=== PATIENT | female | born 1995 | race African-American/Black ===

== ENCOUNTER 2017-04-19 02:25 | Emergency (ER) | payer SELFPAY ==
[2017-04-19 02:29] VITALS: BP 123/70; PULSE 87; RESP 16; TEMP 37; O2SAT 97; BMI 21.4
[2017-04-19 02:45] LABS: Urine Pregnancy, HCG Qual. Negative (Negative)
--- NOTE | 2017-04-19 03:21 | HMH.EDHA ---
ED Disposition Clinical Impression: Headache Qualifiers: Headache type: unspecified Headache chronicity pattern: acute headache Intractability: not intractable Qualified Code(s): R51 - Headache Disposition: Home, Self-Care Condition on Discharge: Good Instructions: DI for Headache Additional Instructions: see pcp for follow up Referrals: Audrey Tinoco PA [Primary Care Provider] - - Critical Care Critical Care Time: No Attestation: On 04/19/17, the high probability of a clinically significant, sudden or life threatening deterioration of the following system(s) required my full and direct attention, intervention and personal management. The time I documented below is in addition to time spent performing reported procedures but includes the following listed in this critical care notation. Medical Decision Making - Medical Records Medical records reviewed: Yes: I reviewed the patient's medical records. Vital Signs: 04/19/17 02:29 Temperature 98.6 F Temperature Source Oral Pulse Rate [Right Brachial] 87 Respiratory Rate 16 Blood Pressure [Right Arm] 123/70 Blood Pressure Mean [Right Arm] 87 Blood Pressure Source [Right Arm] Automatic Cuff Blood Pressure Position [Right Arm] Sitting 02 Sat by Pulse Oximetry 97 - Lab Data Lab results reviewed: Yes: I reviewed the patient's lab results. Lab Results 04/19/17 02:40: Urine HCG, Qual Negative Orders (Tests/Meds): ED MEDICATIONS Generic Name Dose Route Start Last Admin Trade Name Freq PRN Reason Stop Dose Admin Sodium Chloride 1,000 mls @ 999 mls/hr 04/19/17 03:00 04/19/17 02:59 Sod Chlor 0.9% 1000ml Bag IV 04/19/17 04:00 999 mls/hr .Q1H1M JOSE DAVID Administration Discontinued Medications Generic Name Dose Route Start Last Admin Trade Name Freq PRN Reason Stop Dose Admin Ketorolac Tromethamine 30 mg 04/19/17 02:53 04/19/17 02:58 Toradol 30mg/Ml Vial IV 04/19/17 02:54 30 mg ONCE ONE Administration Ondansetron HCl 4 mg 04/19/17 02:53 04/19/17 02:59 Zofran 4mg/2ml Vial IV 04/19/17 02:54 4 mg ONCE ONE Administration - Isidro Inquiry Pt receiving controlled substance: No Headache HPI - General Chief Complaint: Headache Stated Complaint: Headache and vomiting Time Seen by Provider: 04/19/17 03:21 Mode of Arrival: Ambulatory Source of Information: Patient, Relative, Medical Record Limitations: No Limitations Description of Symptoms (Recalled from ER Triage Doc. by RN): HEADACHE WITH VOMITING - History of Present Illness HPI Narrative: pt with acute segundo MD Complaint: headache Onset (ago): hour(s) Onset description: gradual Location: frontal Severity: similar to previous episodes Relieving factors: nothing, other Context: occurred at rest - Related Data Previous Rx's Medication Instructions Recorded medroxyprogesterone 150 mg/mL 150 mg IM [id number] #1 ml 04/10/17 intramuscular suspension Allergies Allergy/AdvReac Type Severity Reaction Status Date / Time No Known Allergies Allergy Verified 04/19/17 02:32 [facility] History I have reviewed the patient's past medical history: Yes - Social History Smoking Status: Current every day smoker Tobacco Type: cigarettes Alcohol Intake: never - Psychiatric History Expresses thoughts of harming self/others: None Suicide Plan Description: No Plan ROS Obtained: Yes All systems reviewed & no additional complaints - Constitutional Constitutional: Denies fever(s) - Eyes Eyes: Denies change in vision - ENT Ears, Nose, Mouth, and Throat: Denies sore throat - Cardiovascular Cardiovascular: Denies diaphoresis - Musculoskeletal Musculoskeletal: Denies joint pain - Integumentary/Breasts Skin/Breast: Denies rash Physical Exam - General General appearance: alert - Head Head exam: normocephalic - Eye Eye exam: Present: PERRL, EOMI - ENT ENT exam: Present: mucous membranes moist - Neck Neck exam: Prese
--- NOTE | 2017-04-19 03:25 | ED_ITS ---
ED Disposition Clinical Impression: Headache Qualifiers: Headache type: unspecified Headache chronicity pattern: acute headache Intractability: not intractable Qualified Code(s): R51 - Headache Disposition: Home, Self-Care Condition on Discharge: Good Instructions: DI for Headache Additional Instructions: see pcp for follow up Referrals: Audrey Tinoco PA [Primary Care Provider] - - Critical Care Critical Care Time: No Attestation: On 04/19/17, the high probability of a clinically significant, sudden or life threatening deterioration of the following system(s) required my full and direct attention, intervention and personal management. The time I documented below is in addition to time spent performing reported procedures but includes the following listed in this critical care notation. Medical Decision Making - Medical Records Medical records reviewed: Yes: I reviewed the patient's medical records. Vital Signs: 04/19/17 02:29 Temperature 98.6 F Temperature Source Oral Pulse Rate [Right Brachial] 87 Respiratory Rate 16 Blood Pressure [Right Arm] 123/70 Blood Pressure Mean [Right Arm] 87 Blood Pressure Source [Right Arm] Automatic Cuff Blood Pressure Position [Right Arm] Sitting 02 Sat by Pulse Oximetry 97 - Lab Data Lab results reviewed: Yes: I reviewed the patient's lab results. Lab Results 04/19/17 02:40: Urine HCG, Qual Negative Orders (Tests/Meds): ED MEDICATIONS Generic Name Dose Route Start Last Admin Trade Name Freq PRN Reason Stop Dose Admin Sodium Chloride 1,000 mls @ 999 mls/hr 04/19/17 03:00 04/19/17 02:59 Sod Chlor 0.9% 1000ml Bag IV 04/19/17 04:00 999 mls/hr .Q1H1M JOSE DAVID Administration Discontinued Medications Generic Name Dose Route Start Last Admin Trade Name Freq PRN Reason Stop Dose Admin Ketorolac Tromethamine 30 mg 04/19/17 02:53 04/19/17 02:58 Toradol 30mg/Ml Vial IV 04/19/17 02:54 30 mg ONCE ONE Administration Ondansetron HCl 4 mg 04/19/17 02:53 04/19/17 02:59 Zofran 4mg/2ml Vial IV 04/19/17 02:54 4 mg ONCE ONE Administration - Isidro Inquiry Pt receiving controlled substance: No Headache HPI - General Chief Complaint: Headache Stated Complaint: Headache and vomiting Time Seen by Provider: 04/19/17 03:21 Mode of Arrival: Ambulatory Source of Information: Patient, Relative, Medical Record Limitations: No Limitations Description of Symptoms (Recalled from ER Triage Doc. by RN): HEADACHE WITH VOMITING - History of Present Illness HPI Narrative: pt with acute segundo MD Complaint: headache Onset (ago): hour(s) Onset description: gradual Location: frontal Severity: similar to previous episodes Relieving factors: nothing, other Context: occurred at rest - Related Data Previous Rx's Medication Instructions Recorded medroxyprogesterone 150 mg/mL 150 mg IM [id number] #1 ml 04/10/17 intramuscular suspension Allergies Allergy/AdvReac Type Severity Reaction Status Date / Time No Known Allergies Allergy Verified 04/19/17 02:32 [facility] History I have reviewed the patient's past medical history: Yes - Social History Smoking Status: Current every
[2017-04-19 03:36] VITALS: BP 123/70; PULSE 87; RESP 16; TEMP 37; O2SAT 97
== END 2017-04-19 03:37 | disposition home or self-care (01) ==
PROVIDERS: Emergency Provider Emergency Medicine; Family Provider Physician Assistant; PCP Physician Assistant
DX: R51 Headache (principal); F17.210 Nicotine dependence, cigarettes, uncomplicated
CPT/HCPCS: 81025; 96365; 96374; 96375; 99282; J2405

== ENCOUNTER → 2017-06-06 17:10 | Outpatient (REF) | payer MEDICAID, SELFPAY ==
[2017-06-09 19:01] LABS: Neisseria gonorrhoeae, NAA Negative (Negative)
== END ==
LOC: LAB 17:10
PROVIDERS: Visit Provider Nurse Practitioner Obstetrics & Gynecology
DX: Z72.51 High risk heterosexual behavior (principal)
CPT/HCPCS: 87491; 87591

== ENCOUNTER 2018-07-28 05:47 | Emergency (ER) | payer SELFPAY ==
[2018-07-28 05:54] VITALS: BP 103/65; PULSE 64; RESP 16; TEMP 36.5; O2SAT 96; BMI 22.2
[2018-07-28 06:19] LABS: Strep Scrn Group A (Rapid) Negative (Negative)
--- NOTE | 2018-07-28 06:25 | XR_ITS ---
XR chest 2V HISTORY: ITS.REASON: cough ORDERING PHYSICIAN: Ronnie Aj MD PATIENT AGE: 22 years COMPARISON: 05/25/2018 FINDINGS: The cardiomediastinal silhouette and pulmonary vascularity are within normal limits. The lungs are clear without infiltrates, suspicious nodules, or pleural effusions. No acute bony abnormalities. IMPRESSION: Negative chest, no acute finding
--- NOTE | 2018-07-28 06:34 | HMH.EDGENADL ---
ED Disposition Clinical Impression: Cough, URI (upper respiratory infection) Disposition: Home, Self-Care Condition on Discharge: Good Instructions: Cough Prescriptions: Albuterol Sulfate [Albuterol HFA Inhaler] 2 puffs IH Q6HP PRN #1 inh PRN Reason: Shortness Of Breath Or Wheezing Amoxicillin [Amoxicillin 875MG Tab] 875 mg PO Q12H #14 tab predniSONE [Prednisone 20mg Tab] 40 mg PO DAILY 5 Days #10 tab Referrals: Audrey Tinoco PA [Primary Care Provider] - Time of Disposition: 07:09 - Critical Care Critical Care Time: No Attestation: On 07/28/18, the high probability of a clinically significant, sudden or life threatening deterioration of the following system(s) required my full and direct attention, intervention and personal management. The time I documented below is in addition to time spent performing reported procedures but includes the following listed in this critical care notation. Medical Decision Making - Medical Records Medical records reviewed: Yes: I reviewed the patient's medical records. - Isidro Inquiry Pt receiving controlled substance: No Isidro was queried for this patient: No Vital Signs: 07/28/18 05:54 07/28/18 06:59 Temperature 97.7 F Temperature Source Oral Pulse Rate [Right] 64 64 Respiratory Rate 16 16 Blood Pressure [Right Arm] 103/65 L 114/58 L Blood Pressure Mean [Right Arm] 77 76 Blood Pressure Source [Right Arm] Automatic Cuff Blood Pressure Position [Right Arm] Sitting 02 Sat by Pulse Oximetry 96 98 Oxygen Delivery Method Room Air Room Air - Lab Data Lab results reviewed: Yes: I reviewed the patient's lab results. Lab Results 07/28/18 05:54: Influenza Type A Ag Negative, Influenza Type B Ag Negative 07/28/18 05:54: Group A Strep Rapid Negative 07/28/18 06:30: Urine HCG, Qual Negative Orders (Tests/Meds): ED MEDICATIONS Generic Name Dose Route Start Last Admin Trade Name Freq PRN Reason Stop Dose Admin Albuterol/Ipratropium 3 ml 07/28/18 06:30 Duoneb 3ml Neb IH 08/27/18 06:29 Q1H JOSE DAVID Benzonatate 200 mg 07/28/18 06:30 Tessalon Perles 100mg Capsule PO 08/27/18 06:29 ONCE JOSE DAVID Discontinued Medications Generic Name Dose Route Start Last Admin Trade Name Malcolm PRN Reason Stop Dose Admin Dexamethasone Sodium Phosphate 10 mg 07/28/18 06:26 07/28/18 06:47 Decadron 4mg/Ml 1ml Vial IM 07/28/18 06:27 10 mg ONCE ONE Administration ORDERS Category Date Time Status CXR 2 view (NOT portable) [XR chest 2V] Stat Exams 07/28/18 06:25 Taken Strep Screen Confirmation Stat Micro 07/28/18 05:54 Received General Adult HPI - General Chief complaint: PAIN Stated complaint: Sore Throat and cough Time Seen by Provider: 07/28/18 06:10 Mode of Arrival: Ambulatory Source of Information: Patient Limitations: No Limitations Description of Symptoms (Recalled from ER Triage Doc. by RN): Pt states her throat has been sore for 4 days - History of Present Illness HPI narrative: sore throat and relentless cough she describes. - Related Data Previous Rx's Medication Instructions Recorded Albuterol Sulfate [Albuterol HFA 2 puffs IH Q6HP PRN #1 inh 07/28/18 Inhaler] Amoxicillin [Amoxicillin 875MG 875 mg PO Q12H #14 tab 07/28/18 Tab] predniSONE [Prednisone 20mg 40 mg PO DAILY 5 Days #10 tab 07/28/18 Tab] Allergies Allergy/AdvReac Type Severity Reaction Status Date / Time No Known Allergies Allergy Verified 05/25/18 20:36 [facility] History - Hepatitis A Screen Drug use history?: No High risk sexual behaviors?: No History of sexually transmitted infection?: No Currently employed?: No Childcare worker?: No Do you have indoor plumbing?: Yes Do you have electricity?: Yes Attestation statement:: This patient has been screened for Hepatitis A risk factors. I have reviewed the patient's past medical history: Yes Medical History: Denies:: Diabetes Mellitus Type 1, Diabe
--- NOTE | 2018-07-28 06:37 | ED_ITS ---
ED Disposition Clinical Impression: Cough, URI (upper respiratory infection) Disposition: Home, Self-Care Condition on Discharge: Good Instructions: Cough Prescriptions: Albuterol Sulfate [Albuterol HFA Inhaler] 2 puffs IH Q6HP PRN #1 inh PRN Reason: Shortness Of Breath Or Wheezing Amoxicillin [Amoxicillin 875MG Tab] 875 mg PO Q12H #14 tab predniSONE [Prednisone 20mg Tab] 40 mg PO DAILY 5 Days #10 tab Referrals: Audrey Tinoco PA [Primary Care Provider] - Time of Disposition: 07:09 - Critical Care Critical Care Time: No Attestation: On 07/28/18, the high probability of a clinically significant, sudden or life threatening deterioration of the following system(s) required my full and direct attention, intervention and personal management. The time I documented below is in addition to time spent performing reported procedures but includes the following listed in this critical care notation. Medical Decision Making - Medical Records Medical records reviewed: Yes: I reviewed the patient's medical records. - Isidro Inquiry Pt receiving controlled substance: No Isidro was queried for this patient: No Vital Signs: 07/28/18 05:54 07/28/18 06:59 Temperature 97.7 F Temperature Source Oral Pulse Rate [Right] 64 64 Respiratory Rate 16 16 Blood Pressure [Right Arm] 103/65 L 114/58 L Blood Pressure Mean [Right Arm] 77 76 Blood Pressure Source [Right Arm] Automatic Cuff Blood Pressure Position [Right Arm] Sitting 02 Sat by Pulse Oximetry 96 98 Oxygen Delivery Method Room Air Room Air - Lab Data Lab results reviewed: Yes: I reviewed the patient's lab results. Lab Results 07/28/18 05:54: Influenza Type A Ag Negative, Influenza Type B Ag Negative 07/28/18 05:54: Group A Strep Rapid Negative 07/28/18 06:30: Urine HCG, Qual Negative Orders (Tests/Meds): ED MEDICATIONS Generic Name Dose Route Start Last Admin Trade Name Freq PRN Reason Stop Dose Admin Albuterol/Ipratropium 3 ml 07/28/18 06:30 Duoneb 3ml Neb IH 08/27/18 06:29 Q1H JOSE DAVID Benzonatate 200 mg 07/28/18 06:30 Tessalon Perles 100mg Capsule PO 08/27/18 06:29 ONCE JOSE DAVID Discontinued Medications Generic Name Dose Route Start Last Admin Trade Name Malcolm PRN Reason Stop Dose Admin Dexamethasone Sodium Phosphate 10 mg 07/28/18 06:26 07/28/18 06:47 Decadron 4mg/Ml 1ml Vial IM 07/28/18 06:27 10 mg ONCE ONE Administration ORDERS Category Date Time Status CXR 2 view (NOT portable) [XR chest 2V] Stat Exams 07/28/18 06:25 Taken Strep Screen Confirmation Stat Micro 07/28/18 05:54 Received General Adult HPI - General Chief complaint: PAIN Stated complaint: Sore Throat and cough Time Seen by Provider: 07/28/18 06:10 Mode of Arrival: Ambulatory Source of Information: Patient Limitations: No Limitations Description of Symptoms (Recalled from ER Triage Doc. by RN): Pt states her throat has been sore for 4 days - History of Present Illness HPI narrative: sore throat and relentless cough she describes. - Related Data Previous Rx's
[2018-07-28 06:44] LABS: Urine Pregnancy, HCG Qual. Negative (Negative)
[2018-07-28 06:59] VITALS: BP 114/58; PULSE 64; RESP 16; O2SAT 98
[2018-07-28 07:27] VITALS: PULSE 60
[2018-07-28 07:58] VITALS: BP 126/66; PULSE 65; RESP 18; TEMP 36.6; O2SAT 100
== END 2018-07-28 08:03 | disposition home or self-care (01) ==
PROVIDERS: Emergency Provider Emergency Medicine; PCP Physician Assistant
DX: J06.9 Acute upper respiratory infection, unspecified (principal); F17.210 Nicotine dependence, cigarettes, uncomplicated
CPT/HCPCS: 71046; 81025; 87275; 87276; 87430; 96372; 99283

== ENCOUNTER 2020-09-06 13:29 | Emergency (ER) | payer MEDICAID, SELFPAY ==
[2020-09-06 13:30] VITALS: BP 119/68; PULSE 89; RESP 18; TEMP 36.9; O2SAT 100; BMI 20.2
--- NOTE | 2020-09-06 13:42 | HMH.EDEAR ---
ED Disposition Clinical Impression: Pharyngitis Qualifiers: Pharyngitis/tonsillitis etiology: unspecified etiology Qualified Code(s): J02.9 - Acute pharyngitis, unspecified Disposition: Home, Self-Care Condition on Discharge: Good Additional Instructions: Follow-up with your primary care physician if your symptoms do not improve. Take [id number] Tylenol or ibuprofen as needed. Referrals: Audrey Tinoco PA [Primary Care Provider] - - Critical Care Critical Care Time: No Attestation: On 09/06/20, the high probability of a clinically significant, sudden or life threatening deterioration of the following system(s) required my full and direct attention, intervention and personal management. The time I documented below is in addition to time spent performing reported procedures but includes the following listed in this critical care notation. Medical Decision Making - Isidro Inquiry Pt receiving controlled substance: No Vital Signs: 09/06/20 13:30 09/06/20 14:29 Temperature 98.5 F 98.5 F Temperature Source Oral Pulse Rate 89 Pulse Rate [Right] 89 Respiratory Rate 18 18 Blood Pressure 119/68 Blood Pressure [Right Arm] 119/68 Blood Pressure Mean [Right Arm] 85 02 Sat by Pulse Oximetry 100 Oxygen Delivery Method Room Air - Lab Data Lab results reviewed: Yes: I reviewed the patient's lab results. Lab Results 09/06/20 13:44: Group A Strep Rapid Negative Orders (Tests/Meds): ED MEDICATIONS Discontinued Medications Generic Name Dose Route Start Last Admin Trade Name Freq PRN Reason Stop Dose Admin Ibuprofen 600 mg 09/06/20 14:24 09/06/20 14:30 Ibuprofen 600 Mg Tablet PO 09/06/20 14:25 Not Given ONCE ONE ORDERS Category Date Time Status Strep Screen Confirmation Stat Micro 09/06/20 13:44 Received Neg Medical Decision Narrative: The patient presents to the emergency department complaining of right-sided ear pain and sore throat. On physical examination the ear looks normal. There is some erythema on the right side of the patient's throat. A rapid strep screen was performed and was negative. Discharged with symptomatic treatment and instructions to follow-up with her primary care physician in about 3 to 4 days if symptoms do not resolve. Ear HPI - General Chief complaint: Ear Stated complaint: Rt ear pain, sore throat Time Seen by Provider: 09/06/20 13:43 Mode of Arrival: Ambulatory Source of Information: Patient Limitations: No Limitations - History of Present Illness HPI Narrative: The patient presents to the emergency department complaining of right-sided ear pain and a sore throat that began about 3 or 5 AM today. Denies any trauma. She denies any fevers. She does complain of a mild cough. MD Complaint: ear pain Location: right ear Duration: constant Severity: moderate Relieving factors: nothing - Related Data Previous Rx's Medication Instructions Recorded Albuterol Sulfate [Albuterol HFA 2 puffs IH Q6HP PRN #1 inh 07/28/18 Inhaler] Amoxicillin [Amoxicillin 875MG 875 mg PO Q12H #14 tab 07/28/18 Tab] Ondansetron [Zofran 4mg ODT] 4 mg PO Q8 PRN #8 tab.rapdis 04/01/19 Allergies Allergy/AdvReac Type Severity Reaction Status Date / Time No Known Allergies Allergy Verified 09/06/20 13:48 [facility] History - Hepatitis A Screen High risk sexual behaviors?: No Attestation statement:: This patient has been screened for Hepatitis A risk factors. Medical History: Denies:: Diabetes Mellitus Type 1, Diabetes Mellitus Type 2 Amputation: No Fractures: No - Social History Smoking Status: Current every day smoker Tobacco Type: cigarettes # Packs/Day (cigarettes): 1 Alcohol Intake: never Substance Use Type: denies use Occupational Status: employed Housing: house Family Hx:: No significant family history ROS Obtained: Yes All systems reviewed & no additional complaints Physical Exam - General General
[2020-09-06 14:02] LABS: Strep Scrn Group A (Rapid) Negative (Negative)
--- NOTE | 2020-09-06 14:27 | PC.NURSE ---
PATIENT JUST WALKED OUT OF ED WITHOUT NOTIFYING STAFF AND SIGNING AN AMA FORM. JUST INFORMED PATIENT SHE WAS UP FOR DISCHARGE
[2020-09-06 14:29] VITALS: BP 119/68; PULSE 89; RESP 18; TEMP 36.9
== END 2020-09-06 14:33 | disposition home or self-care (01) ==
PROVIDERS: Emergency Provider Emergency Medicine; PCP Physician Assistant
DX: J02.9 Acute pharyngitis, unspecified (principal); F17.210 Nicotine dependence, cigarettes, uncomplicated
CPT/HCPCS: 87430; 99203; G0463

== ENCOUNTER 2020-09-09 10:35 | Emergency (ER) | payer MEDICAID, SELFPAY ==
[2020-09-09 10:35] VITALS: BP 112/54; PULSE 82; RESP 19; TEMP 37; O2SAT 98; BMI 19.5
--- NOTE | 2020-09-09 10:55 | HMH.EDUTC ---
[facility] [place] Clinical Impression: Sinusitis Qualifiers: Sinusitis location: unspecified location Chronicity: unspecified Qualified Code(s): J32.9 - Chronic sinusitis, unspecified Disposition: Home, Self-Care Condition on Discharge: Good Instructions: Sore Throat, Sinusitis, DI for Sinusitis, DI for Vomiting -- Adult, Nausea and Vomiting-Adult Additional Instructions: *Monitor Temp, Over the counter Motrin or Tylenol as directed/as needed Tylenol every 4 hours and Motrin every 6 hours (as long as your family doctor has told you that you can take it) for fever or pain. and straight to ER if unable to lower temp less than 101.0 after medication given *Warm salt water gargles may help to soothe the throat *Throat Lozenges *Warm fluids like tea with honey may help to soothe the throat *Sleep elevated *Humidifier/Vaporizer Take medication as prescribed Your throat swab was sent for culture. Those results are typically sent to your primary care. Be sure to follow up in 2-3 days with your family doctor/primary care physician if no improvement so they can review those result and treat if necessary. If you don?t have a primary care doctor, I recommend you get one but in the mean time, you will have to return to a walk in clinic Follow up IMMEDIATELY for new or worsening symptoms or no Noticeable improvement over the next 48-72 hours. 911 for difficulty breathing or swallowing You were tested for today for COVID19 your test result should be back in the next 24-48 hours, you may call to the [facility] to see if your test results are back in the next 48 hours [phone] [facility] hours are 9am-9pm You was given a handout with instructions for Self Quarantine and Self isolation for while you wait on test results and what to do if they are positive If you are positive the Health Dept will be contacting you also Prescriptions: Amoxicillin/Potassium Clav [Augmentin 875-125 Tablet] 1 tab PO Q12H 7 Days #14 tab Transmission Status: Received by [facility] predniSONE [Prednisone 20mg Tab] 20 mg PO BID 5 Days #10 tab Transmission Status: Received by [facility] Benzonatate [Tessalon Perle 100mg Cap*] 100 mg PO TID PRN #15 cap PRN Reason: Cough Transmission Status: Received by [facility] Ondansetron [Zofran 4mg ODT] 4 mg PO TIDP PRN #9 tab PRN Reason: Vomiting Transmission Status: Received by [facility] Referrals: Audrey Tinoco PA [Primary Care Provider] - As needed Forms: Work/School Release Time of Disposition: 11:02 Medical Decision Making - Isidro Inquiry Pt receiving controlled substance: No Isidro was queried for this patient: No Vital Signs: 09/09/20 10:35 09/09/20 11:04 Temperature 98.6 F 98.6 F Temperature Source Oral Pulse Rate 82 Pulse Rate [Right Brachial] 82 Respiratory Rate 19 19 Blood Pressure 112/54 L Blood Pressure [Right Arm] 112/54 L Blood Pressure Mean [Right Arm] 73 Blood Pressure Source [Right Arm] Automatic Cuff Blood Pressure Position [Right Arm] Sitting 02 Sat by Pulse Oximetry 98 Oxygen Delivery Method Room Air - Lab Data Lab results reviewed: Yes: I reviewed the patient's lab results. Lab Results 09/09/20 10:52: [facility] Clinic Negative Orders (Tests/Meds): ORDERS Category Date Time Status Covid-19 Nasal PCR ([facility]) Routine Lab 09/09/20 10:45 Received [facility] [place] HPI - General Stated complaint: cough, vomiting, fever Time Seen by Provider: 09/09/20 10:55 Mode of Arrival: Ambulatory Source of Information: Patient Limitations: No Limitations Description of Symptoms (Recalled from Triage Doc. by RN): PATIENT C/O CHEST CONGESTION, COUGH, VOMITING, AND FEELING HOT SINCE SUNDAY HEENT Symptoms (Recalled from RN notes): Yes Resp Symptoms (Recalled from RN notes): Yes Skin Symptoms (Recalled from RN notes): No MS Symptoms (Recalled from RN notes): No Functional Status (Recalled from RN notes): WNL - History of Present I
[2020-09-09 10:58] LABS: UTC Pregnancy Test, Urine Negative (Negative)
[2020-09-09 11:04] VITALS: BP 112/54; PULSE 82; RESP 19; TEMP 37; O2SAT 98
== END 2020-09-09 11:08 | disposition home or self-care (01) ==
PROVIDERS: Emergency Provider Nurse Practitioner; PCP Physician Assistant
DX: J32.9 Chronic sinusitis, unspecified (principal); F17.210 Nicotine dependence, cigarettes, uncomplicated
CPT/HCPCS: 81025; 99202; G0463; U0003

== ENCOUNTER 2020-09-15 20:40 | Emergency (ER) | payer MEDICAID, SELFPAY ==
[2020-09-15 20:53] VITALS: BP 130/77; PULSE 78; RESP 18; TEMP 37.2; O2SAT 97; BMI 22.2
[2020-09-15 21:04] VITALS: BMI 22.2
[2020-09-15 21:18] LABS: Adenovirus,PCR Not Detected (NotDetected); Bordetella Pertussis Not Detected (NotDetected); Chlamydophila Pneumoniae, PCR Not Detected (NotDetected); Coronavirus 19, PCR Not Detected (NotDetected); Coronavirus 229E Not Detected (NotDetected); Coronavirus NL63 Not Detected (NotDetected); Coronavirus OC43 Not Detected (NotDetected); Coronovirus HKU1,PCR Not Detected (NotDetected); Human Metapneumovirus Not Detected (NotDetected); Influenza A, PCR Not Detected (NotDetected); Influenza AH1, 2009 Not Detected (NotDetected); Influenza AH1, PCR Not Detected (NotDetected); Influenza AH3,PCR Not Detected (NotDetected); Influenza B, PCR Not Detected (NotDetected); Mycoplasma Pneumoniae, PCR Not Detected (NotDetected); Parainfluenza 1, PCR Not Detected (NotDetected); Parainfluenza 2, PCR Not Detected (NotDetected); Parainfluenza 3, PCR Not Detected (NotDetected); Parainfluenza 4, PCR Not Detected (NotDetected); Respiratory Syncytial Virus Not Detected (NotDetected); Rhinovirus/Enterovirus Not Detected (NotDetected)
--- NOTE | 2020-09-15 21:23 | PC.NURSE ---
Pt is coughing and refuses to wear her mask, pt was asked multiple times to please wear her mask, but she said she can't breath in it.
--- NOTE | 2020-09-15 21:24 | XR_ITS ---
PROCEDURE INFORMATION: Exam: XR Chest Exam date and time: 09/15/2020 9:24 PM Age: 24 years old Clinical indication: Cough TECHNIQUE: Imaging protocol: XR of the chest. Views: 2 views. COMPARISON: CR XR CHEST 2V 02/20/2019 1:21 PM FINDINGS: Lungs: Unremarkable. No consolidation. Pleural spaces: Unremarkable. No pleural effusion. No pneumothorax. Heart/Mediastinum: Unremarkable. No cardiomegaly. Bones/joints: Unremarkable. IMPRESSION: No acute findings.
[2020-09-15 21:29] LABS: Basophils % 0.3 % (0.1-2.0); Eosinophils % 0.1 % (0.1-12.0); Hemoglobin 14.1 g/dL (12.2-16.2); Lymphocytes % 11.6 % (10-50); Mean Corpuscular HGB Conc 32.9 g/dL (31.8-35.4); Mean Corpuscular Hemoglobin 29.6 pg (27.0-31.2); Mean Corpuscular Volume 90.1 fl (81-99); Mean Platelet Volume 7.7 fl (7.4-10.4); Monocytes # 0.6 K/mm3 (0.1-1.0); Monocytes % 3.2 % (1.7-9.3); Neutrophils # 14.9 K/mm3 (1.8-7.8); Neutrophils % 84.9 % (37.0-80.0); Platelet Count 478 K/mm3 (142-424); Red Blood Count 4.77 M/mm3 (4.20-5.40); Red Cell Distribution Width 13.8 % (11.5-17.5); White Blood Count 17.6 K/mm3 (4.8-10.8)
[2020-09-15 21:32] LABS: MANUAL DIFFERENTIAL MANUAL DIFFERENTIAL (MANUAL DIFF)
[2020-09-15 21:35] LABS: Alanine Aminotransferase 34 U/L (12-78); Albumin Level 4.5 g/dl (3.5-5.0); Albumin/Globulin Ratio 1.6 (1.1-1.8); Alkaline Phosphatase 59 U/L (38-126); Anion Gap 15.1 mEq/L (5-15); Aspartate Amino Transferase 24 U/L (14-36); Bilirubin,Total 0.4 mg/dl (0.2-1.3); Blood Urea Nitrogen 13 mg/dl (7-17); Calcium 9.5 mg/dl (8.4-10.2); Carbon Dioxide 28 mmol/L (22.0-30.0); Chloride 102 mmol/L (98-107); Creatinine Clearance Estimated 116 mL/min (50-200); Estimated Glomerular Filt Rate 125 ml/min (>60); GFR (African American) 151 ML/MIN (>60); Globulin 2.9 g/dL (1.3-3.2); Glucose 126 mg/dl (74-100); Potassium 4.1 mmoL/L (3.5-5.1); Sodium 141 mmol/L (136-145); Total Protein,Serum 7.4 g/dl (6.3-8.2)
[2020-09-15 21:40] LABS: C-Reactive Protein 0.4 mg/L (0-4)
[2020-09-15 21:46] LABS: Microscopic, Urine URINE MICROSCOPIC (MICROSCOPIC)
[2020-09-15 21:48] LABS: Appearance,Urine SL CLOUDY (Clear); Bilirubin,Urine Negative (Negative); Blood, Urine Negative (Negative); Color,Urine YELLOW (Yellow); Glucose,Urine (UA) Negative (Negative); Ketones,Urine Negative (Negative); Leukocyte Esterase,Urine Negative (Negative); Nitrate,Urine Negative (Negative); Protein,Urine Negative (Negative); Urobilinogen,Urine 0.2 EU/dl (0.2)
[2020-09-15 21:49] LABS: Urine Pregnancy, HCG Qual. Negative (Negative)
[2020-09-15 21:53] LABS: Lymphocytes % 10 % (10-50); Monocytes % 6 % (2-9); Neutrophils % 84 % (42-76); Total Cells Counted 100
[2020-09-15 21:54] LABS: Platelet Estimate Normal; Procalcitonin 0.041 ng/mL (0.0-2.0); RBC Morphology Normal
[2020-09-15 21:57] LABS: RBC,Urine Occasional #/hpf (0-3); WBC,Urine Occasional #/hpf (0-3)
[2020-09-15 22:04] LABS: Erythrocyte Sedimentation Rate 10 mm/hr (0-20)
--- NOTE | 2020-09-15 22:21 | CT_ITS ---
PROCEDURE INFORMATION: Exam: CT Neck With Contrast Exam date and time: 09/15/2020 10:21 PM Age: 24 years old Clinical indication: Other: Cough, vomiting, sore throat, RO abcess; Additional info: Abscess TECHNIQUE: Imaging protocol: Computed tomography images of the neck with contrast. Radiation optimization: All CT scans at this facility use at least one of these dose optimization techniques: automated exposure control; mA and/or kV adjustment per patient size (includes targeted exams where dose is matched to clinical indication); or iterative reconstruction. Contrast material: ISOVUE; Contrast volume: 75 ml; Contrast route: IV; COMPARISON: [facility] CT CERVICAL SPINE W/O CONT 09/10/2016 8:07 AM FINDINGS: Nasopharynx: Unremarkable. Oropharynx: Unremarkable. No significant tonsillar enlargement. Hypopharynx: Unremarkable. Larynx: Unremarkable. Normal epiglottis. Retropharyngeal space: Unremarkable. Submandibular/Parotid glands: Normal. Glands are normal in size. Thyroid: Normal. No enlarged or calcified nodules. Lymph nodes: Unremarkable. No lymphadenopathy. Trachea: Visualized trachea is unremarkable. Lungs: Unremarkable as visualized. Bones/joints: Unremarkable. No acute fracture. Soft tissues: Unremarkable. No significant soft tissue swelling. IMPRESSION: No acute findings.
--- NOTE | 2020-09-15 22:21 | HMH.EDURI ---
ED Disposition Clinical Impression: Upper respiratory infection Qualifiers: URI type: unspecified URI Qualified Code(s): J06.9 - Acute upper respiratory infection, unspecified Disposition: Home, Self-Care Condition on Discharge: Good Instructions: DI for Acute Bronchitis Additional Instructions: fluids and see pcp for follow up Prescriptions: Brompheniramine/Pseudoephed/Dm [Bromfed Dm Cough Syrup] 10 ml PO Q46H #120 ml Transmission Status: Pending to [facility] Referrals: Audrey Tinoco PA [Primary Care Provider] - Rex Marcus [Referring] - - Critical Care Critical Care Time: No Attestation: On 09/15/20, the high probability of a clinically significant, sudden or life threatening deterioration of the following system(s) required my full and direct attention, intervention and personal management. The time I documented below is in addition to time spent performing reported procedures but includes the following listed in this critical care notation. Medical Decision Making - Medical Records Medical records reviewed: Yes: I reviewed the patient's medical records. - Isidro Inquiry Pt receiving controlled substance: No Vital Signs: 09/15/20 20:53 09/15/20 23:21 09/15/20 23:45 Temperature 99.0 F Temperature Source Oral Pulse Rate 61 56 L Pulse Rate [Right] 78 Respiratory Rate 18 Blood Pressure 99/80 L 124/69 Blood Pressure [Right Arm] 130/77 Blood Pressure Mean [Right Arm] 94 Blood Pressure Source [Right Arm] Automatic Cuff Blood Pressure Position [Right Arm] Supine 02 Sat by Pulse Oximetry 97 97 97 Oxygen Delivery Method Room Air Room Air Room Air - Lab Data Lab results reviewed: Yes: I reviewed the patient's lab results. Lab Results 09/15/20 21:00: WBC 17.6 H, RBC 4.77, Hgb 14.1, Hct 43.0, MCV 90.1, MCH 29.6, MCHC 32.9, RDW 13.8, Plt Count 478 H, MPV 7.7, Neut % (Auto) 84.9 H, Lymph % (Auto) 11.6, [place] % (Auto) 3.2, Eos % (Auto) 0.1, Baso % (Auto) 0.3, Neut # (Auto) 14.9 H, Lymph # (Auto) 2.0, [place] # (Auto) 0.6, Eos # (Auto) 0.0, Baso # (Auto) 0.0, Total Counted 100, Neutrophils % (Manual) 84 H, Lymphocytes % (Manual) 10, Monocytes % (Manual) 6, Platelet Estimate Normal, RBC Morphology Normal, ESR 10 09/15/20 21:00: Sodium 141, Potassium 4.1, Chloride 102, Carbon Dioxide 28, Anion Gap 15.1 H, BUN 13, Creatinine 0.60, Estimated Creat Clear 116, Estimated GFR 125, Est GFR ( Amer) 151, Glucose 126 H, Calcium 9.5, Total Bilirubin 0.4, AST 24, ALT 34, Alkaline Phosphatase 59, C-Reactive Protein 0.4, Total Protein 7.4, Albumin 4.5, Globulin 2.9, Albumin/Globulin Ratio 1.6, Procalcitonin 0.041 09/15/20 21:11: Chlamy pneumoniae PCR Not detected, Adenovirus (PCR) Not detected, B. pertussis DNA (PCR) Not detected, Coronavirus OC43 (PCR) Not detected, Coronavirus HKU1 (PCR) Not detected, Coronavirus 229E (PCR) Not detected, SARS-CoV-2 (PCR) Not detected, Coronavirus NL63 (PCR) Not detected, Human Metapneumovir PCR Not detected, Influenza A (H1) PCR Not detected, Influ A (H1N1/09) PCR Not detected, Influenza A (H3) PCR Not detected, Influenza Type A (PCR) Not detected, Influenza Type B (PCR) Not detected, M. pneumoniae (PCR) Not detected, Parainfluenza 1 (PCR) Not detected, Parainfluenza 2 (PCR) Not detected, Parainfluenza 3 (PCR) Not detected, Parainfluenza 4 (PCR) Not detected, RSV (PCR) Not detected, Entero/Rhino (PCR) Not detected 09/15/20 21:35: Urine Color Yellow, Urine Appearance Sl cloudy, Urine pH 6.0, Ur Specific [place] 1.020, Urine Protein Negative, Urine Glucose (UA) Negative, Urine Ketones Negative, Urine Blood Negative, Urine Nitrate Negative, Urine Bilirubin Negative, Urine Urobilinogen 0.2, Ur Leukocyte Esterase Negative, Urine RBC Occasional, Urine WBC Occasional, Ur Squamous Epith Cells None, Urine Bacteria None 09/15/20 21:35: Urine HCG, Qual Negative Result diagrams: 09/15/20 21:00 09/15/20 21:00 Orders (Tests/Meds): ED MEDICATIONS Generic Name Dose Ro
[2020-09-15 23:21] VITALS: BP 99/80; PULSE 61; O2SAT 97
[2020-09-15 23:45] VITALS: BP 124/69; PULSE 56; O2SAT 97
[2020-09-16 00:36] VITALS: BP 124/69; PULSE 56; RESP 16; TEMP 37.1; O2SAT 97
== END 2020-09-16 00:39 | disposition home or self-care (01) ==
PROVIDERS: Emergency Provider Emergency Medicine; PCP Physician Assistant
DX: J06.9 Acute upper respiratory infection, unspecified (principal)
CPT/HCPCS: 70491; 71046; 80053; 81001; 81025; 84145; 85007; 85025; 85651; 86140; 87581; 87633; 87798; 96365; 96366; 96375; 99283; J2405; Q9967

== ENCOUNTER → 2020-11-16 10:09 | Outpatient (CLI) | payer MEDICAID, SELFPAY | PROVIDERS: PCP Physician Assistant; Visit Provider Nurse Practitioner | DX: Z20.822 Contact with and (suspected) exposure to COVID-19 (principal) | CPT/HCPCS: C9803; U0003; U0005 ==

== ENCOUNTER 2021-02-20 13:25 | Emergency (ER) | payer MEDICAID, SELFPAY ==
[2021-02-20 14:15] VITALS: BP 0/0; PULSE 0; RESP 0; TEMP -17.7; TEMP 0
== END 2021-02-20 14:20 | disposition left against medical advice (07) ==
LOC: UTC 13:26
PROVIDERS: Emergency Provider Nurse Practitioner Family
DX: Z53.21 Procedure and treatment not carried out due to patient leaving prior to being seen by health care provider (principal)

== ENCOUNTER 2021-02-21 03:32 | Emergency (ER) | payer MEDICAID, SELFPAY ==
[2021-02-21 03:33] VITALS: BP 125/84; PULSE 79; RESP 20; TEMP 36.8; O2SAT 96; BMI 23.4
--- NOTE | 2021-02-21 04:01 | CT_ITS ---
PROCEDURE INFORMATION: Exam: CT Abdomen And Pelvis With Contrast Exam date and time: 02/21/2021 4:01 AM Age: 25 years old Clinical indication: Abdominal pain; Other: Lower abdomen and back; Additional info: Lower back pain TECHNIQUE: Imaging protocol: Computed tomography of the abdomen and pelvis with contrast. Radiation optimization: All CT scans at this facility use at least one of these dose optimization techniques: automated exposure control; mA and/or kV adjustment per patient size (includes targeted exams where dose is matched to clinical indication); or iterative reconstruction. Contrast material: ISOVUE; Contrast volume: 75 ml; Contrast route: IV; COMPARISON: CT ABDOMEN PELVIS W CON 04/01/2019 2:20 PM FINDINGS: Lungs: Stable calcified right lower lobe pulmonary nodule, likely a granuloma. Liver: Normal. No mass. Gallbladder and bile ducts: Normal. No calcified stones. No ductal dilation. Pancreas: Normal. No ductal dilation. Spleen: Normal. No splenomegaly. Adrenal glands: Normal. No mass. Kidneys and ureters: There is mild urothelial thickening and enhancement bilaterally. No hydronephrosis. Symmetric enhancement of the kidneys. Stomach and bowel: Unremarkable. No obstruction. No mucosal thickening. Appendix: No evidence of appendicitis. Intraperitoneal space: Unremarkable. No free air. No significant fluid collection. Vasculature: Unremarkable. No abdominal aortic aneurysm. Lymph nodes: Unremarkable. No enlarged lymph nodes. Urinary bladder: Unremarkable as visualized. Reproductive: Retroverted uterus. Bones/joints: Unremarkable. No acute fracture. Soft tissues: Unremarkable. IMPRESSION: Mild urothelial thickening and enhancement bilaterally, nonspecific, but which may be seen in the setting of urinary tract infection. No specific CT evidence of pyelonephritis.
[2021-02-21 04:14] LABS: Basophils # 0.1 K/mm3 (0-0.2); Basophils % 0.6 % (0.1-2.0); Eosinophils # 0.1 K/mm3 (0.0-0.4); Eosinophils % 0.9 % (0.1-12.0); Hematocrit 42.7 % (37.0-47.0); Hemoglobin 13.6 g/dL (12.2-16.2); Lymphocytes # 1.8 K/mm3 (0.7-4.5); Lymphocytes % 12.7 % (10-50); Mean Corpuscular Hemoglobin 30.4 pg (27.0-31.2); Mean Platelet Volume 7.9 fl (7.4-10.4); Monocytes # 0.7 K/mm3 (0.1-1.0); Monocytes % 5.3 % (1.7-9.3); Neutrophils # 11.2 K/mm3 (1.8-7.8); Neutrophils % 80.6 % (37.0-80.0); Platelet Count 346 K/mm3 (142-424); Red Blood Count 4.49 M/mm3 (4.20-5.40); Red Cell Distribution Width 13.6 % (11.5-17.5); White Blood Count 13.9 K/mm3 (4.8-10.8)
[2021-02-21 04:16] LABS: Microscopic, Urine URINE MICROSCOPIC (MICROSCOPIC)
[2021-02-21 04:19] LABS: Amylase 64 U/L (30-110)
[2021-02-21 04:19] LABS: Appearance,Urine CLOUDY (Clear); Bilirubin,Urine Negative (Negative); Blood, Urine 3+ (Negative); Color,Urine YELLOW (Yellow); Glucose,Urine (UA) Negative (Negative); Ketones,Urine Negative (Negative); Leukocyte Esterase,Urine 1+ (Negative); Nitrate,Urine Negative (Negative); Protein,Urine 2+ (Negative); Specific Gravity, Urine 1.025 (1.005-1.030); Urobilinogen,Urine 0.2 EU/dl (0.2)
[2021-02-21 04:20] LABS: Alanine Aminotransferase 24 U/L (12-78); Albumin Level 4.3 g/dl (3.5-5.0); Alkaline Phosphatase 57 U/L (38-126); Aspartate Amino Transferase 26 U/L (14-36); Bilirubin,Indirect 0.3 mg/dL (0.0-0.9); Bilirubin,Total 0.3 mg/dl (0.2-1.3); Bilirubin,Unconjugated 0.3 mg/dL (0.0-1.1); Blood Urea Nitrogen 11 mg/dl (7-17); Calcium 9.9 mg/dl (8.4-10.2); Carbon Dioxide 27 mmol/L (22.0-30.0); Chloride 103 mmol/L (98-107); Creatinine Clearance Estimated 125 mL/min (50-200); Estimated Glomerular Filt Rate 124 ml/min (>60); GFR (African American) 150 ML/MIN (>60); Glucose 104 mg/dl (74-100); Lipase 45 U/L (23-300); Sodium 139 mmol/L (136-145)
[2021-02-21 04:21] LABS: RBC,Urine 50-100 #/hpf (0-3); WBC,Urine 50-100 #/hpf (0-3)
--- NOTE | 2021-02-21 04:22 | HMH.EDNVD ---
ED Disposition Clinical Impression: UTI (urinary tract infection) Qualifiers: Urinary tract infection type: site unspecified Hematuria presence: without hematuria Qualified Code(s): N39.0 - Urinary tract infection, site not specified Disposition: Home, Self-Care Condition on Discharge: Good Instructions: DI for Urinary Tract Infection (UTI) Additional Instructions: fluids and see pcp this week for follow up Prescriptions: levoFLOXacin [Levaquin 500mg tab] 500 mg PO DAILY #7 tab Transmission Status: Pending to [facility] Referrals: Provider,Referral, [Primary Care Provider] - - Critical Care Critical Care Time: No Attestation: On 02/21/21, the high probability of a clinically significant, sudden or life threatening deterioration of the following system(s) required my full and direct attention, intervention and personal management. The time I documented below is in addition to time spent performing reported procedures but includes the following listed in this critical care notation. Medical Decision Making - Medical Records Medical records reviewed: Yes: I reviewed the patient's medical records. - Isidro Inquiry Pt receiving controlled substance: No Vital Signs: 02/21/21 03:33 Temperature 98.3 F Temperature Source Oral Pulse Rate [Apical] 79 Respiratory Rate 20 Blood Pressure [Right Arm] 125/84 Blood Pressure Mean [Right Arm] 97 Blood Pressure Source [Right Arm] Automatic Cuff Blood Pressure Position [Right Arm] Sitting 02 Sat by Pulse Oximetry 96 Oxygen Delivery Method Nasal Cannula Oxygen Flow Rate (LPM) 4 - Lab Data Lab results reviewed: Yes: I reviewed the patient's lab results. Lab Results 02/21/21 03:40: Urine Color Yellow, Urine Appearance Cloudy, Urine pH 6.0, Ur Specific [place] 1.025, Urine Protein 2+, Urine Glucose (UA) Negative, Urine Ketones Negative, Urine Blood 3+, Urine Nitrate Negative, Urine Bilirubin Negative, Urine Urobilinogen 0.2, Ur Leukocyte Esterase 1+ A, Urine RBC 50-100, Urine WBC 50-100 02/21/21 03:48: WBC 13.9 H, RBC 4.49, Hgb 13.6, Hct 42.7, MCV 95.0, MCH 30.4, MCHC 32.0, RDW 13.6, Plt Count 346, MPV 7.9, Neut % (Auto) 80.6 H, Lymph % (Auto) 12.7, [place] % (Auto) 5.3, Eos % (Auto) 0.9, Baso % (Auto) 0.6, Neut # (Auto) 11.2 H, Lymph # (Auto) 1.8, [place] # (Auto) 0.7, Eos # (Auto) 0.1, Baso # (Auto) 0.1 02/21/21 03:48: C-Reactive Protein 4.0, Amylase 64 02/21/21 03:48: ESR 10 02/21/21 03:48: Sodium 139, Potassium 4.0, Chloride 103, Carbon Dioxide 27, Anion Gap 13.0, BUN 11, Creatinine 0.60, Estimated Creat Clear 125, Estimated GFR 124, Est GFR ( Amer) 150, Glucose 104 H, Calcium 9.9, Total Bilirubin 0.3, Direct Bilirubin 0.0, Conjugated Bilirubin 0.0, Indirect Bilirubin 0.3, Unconjugated Bilirubin 0.3, AST 26, ALT 24, Alkaline Phosphatase 57, Total Protein 7.0, Albumin 4.3, Lipase 45, Procalcitonin 0.064, HCG, Quant < 2 02/21/21 04:30: Urine HCG, Qual Negative Result diagrams: 02/21/21 03:48 02/21/21 03:48 Orders (Tests/Meds): ED MEDICATIONS Generic Name Dose Route Start Last Admin Trade Name Freq PRN Reason Stop Dose Admin Sodium Chloride 1,000 mls @ 999 mls/hr 02/21/21 04:15 02/21/21 04:09 Sod Chlor 0.9% 1000ml Bag IV 02/21/21 05:15 999 mls/hr .Q1H1M JOSE DAVID Administration Sodium Chloride 1,000 mls @ 999 mls/hr 02/21/21 05:30 02/21/21 05:24 Sod Chlor 0.9% 1000ml Bag IV 02/21/21 06:30 999 mls/hr .Q1H1M JOSE DAVID Administration Ceftriaxone Sodium 1 gm/ 50 mls @ 100 mls/hr 02/21/21 07:30 02/21/21 07:35 Sodium Chloride IV 03/07/21 07:29 100 mls/hr Q24H JOSE DAVID Administration Discontinued Medications Generic Name Dose Route Start Last Admin Trade Name Freq PRN Reason Stop Dose Admin Iopamidol 75 ml 02/21/21 05:17 02/21/21 05:18 Iopamidol-370 (76%);100ml Bottle IV 02/21/21 05:18 75 ml ONCE ONE Administration Ketorolac Tromethamine 30 mg 02/21/21 07:19 02/21/21 07:35 Ketorolac 30mg/Ml Vial IV 02/21/21 07:2
[2021-02-21 04:38] LABS: Procalcitonin 0.064 ng/mL (0.0-2.0)
[2021-02-21 04:45] LABS: HCG,Quantitative < 2 mIU/ml (0-5.42)
[2021-02-21 04:46] LABS: Erythrocyte Sedimentation Rate 10 mm/hr (0-20)
[2021-02-21 04:57] LABS: Urine Pregnancy, HCG Qual. Negative (Negative)
[2021-02-21 07:53] VITALS: BP 101/57; PULSE 68; RESP 16; TEMP 36.8; O2SAT 98
== END 2021-02-21 07:54 | disposition home or self-care (01) ==
PROVIDERS: Emergency Provider Emergency Medicine
DX: N30.00 Acute cystitis without hematuria (principal); B96.20 Unspecified Escherichia coli [E. coli] as the cause of diseases classified elsewhere; F17.210 Nicotine dependence, cigarettes, uncomplicated
CPT/HCPCS: 74177; 80048; 80076; 81001; 81025; 82150; 83690; 84145; 84702; 85025; 85651; 86140; 87086; 87088; 87186; 96365; 96366; 96375; 99283; J2405; Q9967

== ENCOUNTER 2021-03-13 12:37 | Emergency (ER) | payer MEDICAID, SELFPAY ==
[2021-03-13 12:38] VITALS: BP 121/73; PULSE 83; RESP 14; TEMP 37.3; O2SAT 98; BMI 24.2
--- NOTE | 2021-03-13 12:49 | HMH.EDNVD ---
ED Disposition Clinical Impression: Gastroenteritis Disposition: Home, Self-Care Condition on Discharge: Good Instructions: Diarrhea, Nausea and Vomiting-Adult Additional Instructions: Please follow up with your primary care physician in 2-3 days for further management. Please continue to use the zofran scheduled for the next day and then use as prescribed to help with nausea and vomiting. Please also supplement with tylenol and ibuprofen for comfort or fever. Please drink plenty of water and eat 3 balanced meals a day. Please return to the ED for symptoms that don't improve, bloody vomiting, bloody stools, difficulty breathing, chest pain, inability to eat and drink or any other concerning symptoms. Prescriptions: ondansetron HCL [Zofran 4mg Tab*] 4 mg PO TIDP PRN #20 tab PRN Reason: Nausea Transmission Status: [facility] Referrals: Provider,Referral, [Primary Care Provider] - Forms: Work/School Release Time of Disposition: 14:35 - Critical Care Critical Care Time: No Attestation: On , the high probability of a clinically significant, sudden or life threatening deterioration of the following system(s) required my full and direct attention, intervention and personal management. The time I documented below is in addition to time spent performing reported procedures but includes the following listed in this critical care notation. Medical Decision Making - Medical Records Medical records reviewed: Yes: I reviewed the patient's medical records. - Isidro Inquiry Pt receiving controlled substance: No Vital Signs: 03/13/21 12:38 03/13/21 13:26 03/13/21 14:01 Temperature 99.1 F Temperature Source Oral Pulse Rate 80 76 Pulse Rate [Right Radial] 83 Respiratory Rate 14 Blood Pressure 126/78 169/96 H Blood Pressure [Right Arm] 121/73 Blood Pressure Mean [Right Arm] 89 Blood Pressure Source [Right Arm] Automatic Cuff Blood Pressure Position [Right Arm] Sitting 02 Sat by Pulse Oximetry 98 98 97 Oxygen Delivery Method Room Air - Lab Data Lab results reviewed: Yes: I reviewed the patient's lab results. Lab Results 03/13/21 12:53: Urine Color Yellow, Urine Appearance Clear, Urine pH 5.5, Ur Specific [place] >= 1.030, Urine Protein Negative, Urine Glucose (UA) Negative, Urine Ketones Negative, Urine Blood Trace-l, Urine Nitrate Negative, Urine Bilirubin Negative, Urine Urobilinogen 0.2, Ur Leukocyte Esterase Negative, Urine RBC Occasional, Urine WBC Occasional, Ur Squamous Epith Cells 3-5, Urine Bacteria Trace 03/13/21 12:55: SARS-CoV-2 (PCR) Not detected, Influenza A Untype (PCR) Not detected, Influenza Type B (PCR) Not detected 03/13/21 12:55: Urine HCG, Qual Negative Orders (Tests/Meds): ED MEDICATIONS Discontinued Medications Generic Name Dose Route Start Last Admin Trade Name Freq PRN Reason Stop Dose Admin Acetaminophen 1,000 mg 03/13/21 12:46 03/13/21 13:00 Acetaminophen 500mg Tab PO 03/13/21 12:47 1,000 mg ONCE ONE Administration Ibuprofen 600 mg 03/13/21 12:46 03/13/21 13:01 Ibuprofen 600 Mg Tablet PO 03/13/21 12:47 600 mg ONCE ONE Administration Ondansetron HCl 4 mg 03/13/21 12:46 03/13/21 13:01 Ondansetron 4mg Odt SL 03/13/21 12:47 4 mg ONCE ONE Administration ORDERS Category Date Time Status Urine Culture Stat Micro 03/13/21 12:55 Received Medical Decision Narrative: Miss Del Rio is a 25 yo female w/ no significant PMH who presents to the ED for non bloody non bilious emesis and diarrhea and abdominal pain for the last 24 hours. Patient is afebrile and hemodynamically stable on arrival. Physical exam benign. Abdominal exam is not peritonitic, no rebound or guarding noted. Patient has no clinical signs of dehydration furthermore symptom onset only within the last 24 hours, no concern for dehydration at this time. Differentials to consider but not limted to include: viral gastroenteritis, viral mediated ill
[2021-03-13 13:04] LABS: Microscopic, Urine URINE MICROSCOPIC (MICROSCOPIC)
[2021-03-13 13:04] LABS: Coronavirus 19, PCR Not Detected (NotDetected); Influenza A, PCR Not Detected (NotDetected); Influenza B, PCR Not Detected (NotDetected)
[2021-03-13 13:09] LABS: Urine Pregnancy, HCG Qual. Negative (Negative)
[2021-03-13 13:26] VITALS: BP 126/78; PULSE 80; O2SAT 98
--- NOTE | 2021-03-13 13:31 | PC.NURSE ---
pt up to restroom
[2021-03-13 14:01] VITALS: BP 169/96; PULSE 76; O2SAT 97
[2021-03-13 14:13] LABS: Appearance,Urine CLEAR (Clear); Bilirubin,Urine Negative (Negative); Blood, Urine TRACE-L (Negative); Color,Urine YELLOW (Yellow); Glucose,Urine (UA) Negative (Negative); Ketones,Urine Negative (Negative); Leukocyte Esterase,Urine Negative (Negative); Nitrate,Urine Negative (Negative); PH,Urine 5.5 (5.0-8.5); Protein,Urine Negative (Negative); Specific Gravity, Urine >= 1.030 (1.005-1.030); Urobilinogen,Urine 0.2 EU/dl (0.2)
[2021-03-13 14:31] LABS: Bacteria,Urine Trace /lpf; RBC,Urine Occasional #/hpf (0-3); WBC,Urine Occasional #/hpf (0-3)
[2021-03-13 14:53] VITALS: BP 121/79; PULSE 87; RESP 14; TEMP 37.2; O2SAT 98
== END 2021-03-13 14:55 | disposition home or self-care (01) ==
LOC: ER 13:34
PROVIDERS: Emergency Provider Student in an Organized Health Care Education/Training Program
DX: K52.9 Noninfective gastroenteritis and colitis, unspecified (principal); F17.210 Nicotine dependence, cigarettes, uncomplicated; Z20.822 Contact with and (suspected) exposure to COVID-19
CPT/HCPCS: 81001; 81025; 87086; 99282; C9803; U0003; U0005

== ENCOUNTER 2021-04-18 11:28 | Emergency (ER) | payer MEDICAID, SELFPAY ==
--- NOTE | 2021-04-18 11:38 | XR_ITS ---
FINAL REPORT TECHNIQUE: Single view chest CLINICAL HISTORY: cough COMPARISON: 09/16/2020 FINDINGS: A single view of the chest was obtained. The heart and mediastinum are within normal limits. The lungs are clear. There is no pneumothorax. Osseous structures are unremarkable. IMPRESSION: No acute cardiopulmonary process. Reviewed, Interpreted and Dictated by Guillermo Handley MD Transcribed by Greta Worrell Authenticated by Guillermo Handley MD on 04/18/2021 01:15:[address] [facility]
[2021-04-18 11:48] VITALS: BP 124/78; PULSE 105; RESP 16; TEMP 37.4; O2SAT 98; BMI 23.4
[2021-04-18 12:00] VITALS: BP 103/69; PULSE 93; O2SAT 100
[2021-04-18 12:07] LABS: Coronavirus 19, PCR Not Detected (NotDetected); Influenza A, PCR Not Detected (NotDetected); Influenza B, PCR Not Detected (NotDetected)
--- NOTE | 2021-04-18 12:28 | HMH.EDSOB ---
ED Disposition Clinical Impression: Bronchitis Disposition: Home, Self-Care Condition on Discharge: Good Instructions: DI for Acute Bronchitis Prescriptions: Albuterol Sulfate [Albuterol Sulfate Hfa] 8.5 gm IH BID #1 each Transmission Status: P[facility] to [facility] methylPREDNISolone [Medrol 4mg tab] 4 mg PO DIRECTED #21 tab Transmission Status: Pending to [facility] Referrals: Audrey Tinoco PA [Primary Care Provider] - - Critical Care Critical Care Time: No Attestation: On 04/18/21, the high probability of a clinically significant, sudden or life threatening deterioration of the following system(s) required my full and direct attention, intervention and personal management. The time I documented below is in addition to time spent performing reported procedures but includes the following listed in this critical care notation. Medical Decision Making - Medical Records Medical records reviewed: Yes: I reviewed the patient's medical records. - Isidro Inquiry Pt receiving controlled substance: No Vital Signs: 04/18/21 11:48 Temperature 99.4 F Temperature Source Oral Pulse Rate [Radial] 105 H Respiratory Rate 16 Blood Pressure [Right Arm] 124/78 Blood Pressure Mean [Right Arm] 93 Blood Pressure Position [Right Arm] Sitting 02 Sat by Pulse Oximetry 98 Oxygen Delivery Method Room Air - Lab Data Lab Results 04/18/21 11:47: SARS-CoV-2 (PCR) Not detected, Influenza A Untype (PCR) Not detected, Influenza Type B (PCR) Not detected Orders (Tests/Meds): ED MEDICATIONS Discontinued Medications Generic Name Dose Route Start Last Admin Trade Name Freq PRN Reason Stop Dose Admin Dexamethasone 10 mg 04/18/21 11:38 04/18/21 11:44 Dexamethasone 4mg Tablet PO 04/18/21 11:39 10 mg ONCE ONE Administration Ondansetron HCl 4 mg 04/18/21 11:38 04/18/21 11:44 Ondansetron 4mg Odt SL 04/18/21 11:39 4 mg ONCE ONE Administration ORDERS Category Date Time Status XR chest portable Stat Exams 04/18/21 11:38 Taken - Radiology Data #1 Image(s): Chest Image Reviewed: Yes I reviewed the patient's radiology results, Yes I reviewed the patient's radiology image, Yes I have reviewed radiologist's interpretation Preliminary Findings: Normal/NAD - Reevaluation(s) Time: 13:02 Reevaluation #1: On reevaluation, the patient is feeling much better. Nontoxic. No respiratory distress. Findings consistent with bronchitis. Patient be placed on short course of steroids as well as inhaler. Needs follow-up with PCP in 48 hours. Given strict return precautions. Verbalized understanding. Medical Decision Narrative: 25-year-old female presented with some congestion and cough. Patient is no evidence of respiratory distress. Nontoxic. Work-up initiated. Resp/SOB HPI - General Chief Complaint: Shortness of Breath/Dyspnea Stated Complaint: cough, congestion, chills, diarrhea Time Seen by Provider: 04/18/21 11:50 Mode of Arrival: Ambulatory Limitations: No Limitations Description of Symptoms (Recalled from ER Triage Doc. by RN): to ed per pvt car with c/o cough, congestion, sob x several days. - History of Present Illness 25-year-old female presented to the emergency department with some nasal congestion and cough. Patient has had the symptoms for the last 2 days. States that she has been coughing up some white sputum. She has had some nasal drainage as well. Does not have any associated difficulty breathing. Patient denies any sick contacts. She denies any fevers or chills. No headache or change in vision. No focal weakness. Abdominal pain or vomiting. No diarrhea. - Related Data Previous Rx's Medication Instructions Recorded levoFLOXacin [Levaquin 500mg 500 mg PO DAILY #7 tab 02/21/21 tab] ondansetron HCL [Zofran 4mg Tab*] 4 mg PO TIDP PRN #20 tab 03/13/21 Albuterol Sulfate [Albuterol 8.5 gm IH BID #1 each 04/18/21 Sulfate Hf
[2021-04-18 12:30] VITALS: BP 122/74; PULSE 92; O2SAT 95
[2021-04-18 13:33] VITALS: BP 122/74; PULSE 92; RESP 16; TEMP 37.4; O2SAT 97
== END 2021-04-18 13:34 | disposition home or self-care (01) ==
PROVIDERS: Emergency Provider Emergency Medicine; PCP Physician Assistant
DX: J20.9 Acute bronchitis, unspecified (principal); F17.210 Nicotine dependence, cigarettes, uncomplicated
CPT/HCPCS: 71045; 99282; C9803; U0003; U0005

== ENCOUNTER 2021-07-09 18:55 | Emergency (ER) | payer MEDICAID, SELFPAY ==
[2021-07-09 19:00] VITALS: BP 116/84; PULSE 71; RESP 18; TEMP 36.8; O2SAT 97; BMI 20.9
--- NOTE | 2021-07-09 19:02 | HMH.EDUTC ---
[facility] Disposition Clinical Impression: Gastroenteritis Disposition: Home, Self-Care Condition on Discharge: Good Instructions: Viral Gastroenteritis, DI for Viral Gastroenteritis -- Adult, Ondansetron, Promethazine Additional Instructions: Drink plenty of fluids. Take tylenol or ibuprofen for pain or fever. Take the medications as directed. Follow up with your regular doctor. GO TO THE ER FOR ANY WORSENING SYMPTOMS Prescriptions: Ondansetron [Zofran 4mg ODT] 4 mg PO Q8HP PRN #20 tab PRN Reason: Nausea Transmission Status: Pending to [id number] Referrals: Provider,Referral, [Primary Care Provider] - Forms: Work/School Release Time of Disposition: 20:27 Medical Decision Making - Medical Records Medical records reviewed: No: I reviewed the patient's medical records. - Isidro Inquiry Pt receiving controlled substance: No Vital Signs: 07/09/21 19:00 07/09/21 19:46 Temperature 98.3 F 98.3 F Temperature Source Oral Pulse Rate 71 Pulse Rate [Right Brachial] 71 Respiratory Rate 18 18 Blood Pressure 116/84 Blood Pressure [Right Arm] 116/84 Blood Pressure Mean [Right Arm] 94 Blood Pressure Source [Right Arm] Automatic Cuff Blood Pressure Position [Right Arm] Sitting 02 Sat by Pulse Oximetry 97 Oxygen Delivery Method Room Air Orders (Tests/Meds): ED MEDICATIONS Discontinued Medications Generic Name Dose Route Start Last Admin Trade Name Freq PRN Reason Stop Dose Admin Promethazine HCl 25 mg 07/09/21 19:41 07/09/21 19:46 Promethazine Hcl 25mg/Ml 1ml Vial IM 07/09/21 19:42 25 mg ONCE ONE Administration Sodium Chloride 25 ml 07/09/21 19:41 07/09/21 19:46 Sodium Chloride 0.9% 25ml Bag IV 07/09/21 19:42 Not Given ONCE ONE [facility] HPI - General Stated complaint: nausea,diarrhea,dania,vomiting Time Seen by Provider: 07/09/21 19:02 - History of Present Illness Provider Complaint: She states that since yesterday, she has had n/v/d. She denies any fever, but she has been chilling. She denies abdominal pain other than the cramping associated with the diarrhea. - Related Data Previous Rx's Medication Instructions Recorded Ondansetron [Zofran 4mg ODT] 4 mg PO Q8HP PRN #20 tab 07/09/21 Allergies Allergy/AdvReac Type Severity Reaction Status Date / Time No Known Allergies Allergy Verified 09/06/20 13:48 [facility] History - Hepatitis A Screen Attestation statement:: This patient has been screened for Hepatitis A risk factors. I have reviewed the patient's past medical history: Yes Medical History: Denies:: Diabetes Mellitus Type 1, Diabetes Mellitus Type 2 Amputation: No Fractures: No - Social History Smoking Status: Current every day smoker Tobacco Type: cigarettes # Packs/Day (cigarettes): 1 Alcohol Intake: never Substance Use Type: denies use Occupational Status: employed Housing: house Family Hx:: No significant family history ROS Obtained: Yes All systems reviewed & no additional complaints - Constitutional Constitutional: Reports as per HPI - Eyes Eyes: Denies eye discharge - ENT Ears, Nose, Mouth, and Throat: Denies sore throat - Cardiovascular Cardiovascular: Denies chest pain - Respiratory Respiratory: Denies chest congestion, Denies cough, Denies dyspnea, Denies stridor, Denies wheezing - Gastrointestinal Gastrointestingal: Reports: as per HPI, cramping, diarrhea, nausea, vomiting. Denies: abdominal pain - Genitourinary Female Genitourinary: Denies dysuria, Denies urinary frequency, Denies urinary incontinence, Denies urinary hesitancy, Denies urinary urgency - Musculoskeletal Musculoskeletal: Denies joint pain, Denies back pain, Denies neck pain - Integumentary/Breasts Skin/Breast: Denies rash Physical Exam - General General appearance: alert, in no apparent distress - Head Head exam: atraumatic, normocephalic, normal inspection - Eye Eye exam: Present: n
[2021-07-09 19:46] VITALS: BP 116/84; PULSE 71; RESP 18; TEMP 36.8; O2SAT 97
== END 2021-07-09 20:34 | disposition home or self-care (01) ==
PROVIDERS: Emergency Provider Nurse Practitioner Family
DX: K52.9 Noninfective gastroenteritis and colitis, unspecified (principal); F17.210 Nicotine dependence, cigarettes, uncomplicated
CPT/HCPCS: 96372; 99212; G0463

== ENCOUNTER 2021-07-13 15:03 | Emergency (ER) | payer MEDICAID, SELFPAY ==
--- NOTE | 2021-07-13 15:42 | PC.NURSE ---
Admissions advised pt left did not want to wait.
[2021-07-13 15:45] VITALS: BP 0/0; PULSE 0; RESP 0; TEMP -17.7; TEMP 0; O2SAT 0
== END 2021-07-13 15:47 | disposition left against medical advice (07) ==
PROVIDERS: Emergency Provider Emergency Medicine
DX: Z53.21 Procedure and treatment not carried out due to patient leaving prior to being seen by health care provider (principal)
CPT/HCPCS: 99211

== ENCOUNTER → 2021-08-03 09:57 | Outpatient (CLI) | payer MEDICAID, SELFPAY ==
--- NOTE | 2021-08-03 10:02 | US_ITS ---
FINAL REPORT CLINICAL HISTORY: pelvic pain FINDINGS: Transvaginal sonographic images of the pelvis were obtained. The uterus measures 7.4 x 3.8 x 4.5 cm. No mass is identified. The right ovary measures 4.4 x 2.5 x 3.0 cm. The left ovary measures 4.2 x 1.8 x 2.1 cm. Multiple small follicles are seen in both ovaries worrisome for polycystic ovarian syndrome. The endometrium measures 8 mm. No free fluid is identified. IMPRESSION: Multiple small follicles in both ovaries worrisome for polycystic ovarian syndrome. Reviewed, Interpreted and Dictated by Geoffrey Castillo III, MD Transcribed by Carey Tomas Authenticated and [facility]
== END ==
PROVIDERS: PCP Obstetrics & Gynecology; Visit Provider Obstetrics & Gynecology
DX: R10.2 Pelvic and perineal pain (principal)
CPT/HCPCS: 76830

== ENCOUNTER 2021-08-07 13:23 | Emergency (ER) | payer MEDICAID, SELFPAY ==
[2021-08-07 13:30] VITALS: BP 116/71; PULSE 70; RESP 18; TEMP 36.8; O2SAT 97; BMI 19.8
--- NOTE | 2021-08-07 13:46 | HMH.EDUTC ---
[facility] [place] Disposition Clinical Impression: Vomiting and diarrhea Disposition: Home, Self-Care Condition on Discharge: Good Instructions: Nausea and Vomiting-Adult, Diarrhea Additional Instructions: Drink extra fluids with and between meals. If you have difficulty drinking, try very small amounts of water or suck on ice chips. ? Avoid fruit juices, as these do not replace minerals and can actually increase diarrhea. ? Children and adults can use sports drinks to replenish electrolytes. Younger children and infants should use products formulated for children, like oral rehydration solutions. ? Eat food in small amounts and let your stomach recover. ? Get lots of rest. You may feel tired or weak. ? No greasy or fried foods for the next 24-48 hours BRAT diet Bananas Rice Apples and [place] ? Make sure to drink plenty of liquids ? Return if needed ? Straight to ER if any life threatening symptoms ? Follow up with family doctor in the next 48-72 hours if no improvement or any worsening of symptoms Referrals: Provider,Referral, MD [Primary Care Provider] - As needed Forms: Work/School Release Medical Decision Making - Isidro Inquiry Pt receiving controlled substance: No Isidro was queried for this patient: No Vital Signs: 08/07/21 13:30 Temperature 98.2 F Temperature Source Oral Pulse Rate [Right Brachial] 70 Respiratory Rate 18 Blood Pressure [Right Arm] 116/71 Blood Pressure Mean [Right Arm] 86 Blood Pressure Source [Right Arm] Automatic Cuff Blood Pressure Position [Right Arm] Sitting 02 Sat by Pulse Oximetry 97 Oxygen Delivery Method Room Air - Lab Data Lab results reviewed: Yes: I reviewed the patient's lab results. [facility] [place] HPI - General Stated complaint: Vomiting Time Seen by Provider: 08/07/21 13:46 Mode of Arrival: Ambulatory Source of Information: Patient Limitations: No Limitations Description of Symptoms (Recalled from Triage Doc. by RN): PATIENT C/O VOMITING AND DIARRHEA SINCE YESTERDAY HEENT Symptoms (Recalled from RN notes): No Resp Symptoms (Recalled from RN notes): No Skin Symptoms (Recalled from RN notes): No MS Symptoms (Recalled from RN notes): No Functional Status (Recalled from RN notes): WNL - History of Present Illness Provider Complaint: Patient states she had vomiting and diarrhea yesterday and laid around most of the day States that she is feeling a little better today and no vomiting or diarrhea today but she wasnt able to work yesterday so she came in to get checked - Related Data Home Medications Medication Instructions Recorded Confirmed norethindrone 1 mg-ethinyl 1 tab PO DAILY 07/29/21 07/29/21 estradiol 10 mcg (24)-iron 10 mcg(2) tablet Allergies Allergy/AdvReac Type Severity Reaction Status Date / Time No Known Allergies Allergy Verified 07/29/21 10:11 - Worker's Comp Is this a Worker's Comp case?: No [facility] History - Hepatitis A Screen Attestation statement:: This patient has been screened for Hepatitis A risk factors. I have reviewed the patient's past medical history: Yes Medical History: Denies:: Diabetes Mellitus Type 1, Diabetes Mellitus Type 2 Other Surgeries: Yes: Other (Ovarian Cystectomy) Amputation: No Fractures: No - Social History Smoking Status: Current every day smoker Tobacco Type: cigarettes # Packs/Day (cigarettes): 1 Alcohol Intake: never Substance Use Type: denies use Occupational Status: other Housing: house Family Hx:: No significant family history [employer] history: Endometriosis ROS Obtained: Yes All systems reviewed & no additional complaints, Yes Systems reviewed as appropriate & no additional complaints - Constitutional Constitutional: Reports system reviewed and no additional complaints, except as docu, Denies body ache, Denies chills, Denies fever(s) - ENT Ears, Nose, Mouth, and Throat: Reports system reviewed and no additional complaints, except as docu - Cardiovascular Cardiovascular: Reports system review
[2021-08-07 13:48] LABS: UTC Pregnancy Test, Urine Negative (Negative)
[2021-08-07 13:52] VITALS: BP 116/71; PULSE 70; RESP 18; TEMP 36.8; O2SAT 97
== END 2021-08-07 13:55 | disposition home or self-care (01) ==
PROVIDERS: Emergency Provider Nurse Practitioner
DX: R11.10 Vomiting, unspecified (principal); R19.7 Diarrhea, unspecified; F17.210 Nicotine dependence, cigarettes, uncomplicated
CPT/HCPCS: 81025; 99212; G0463

== ENCOUNTER 2021-10-16 17:52 | Emergency (ER) | payer MEDICAID, SELFPAY ==
[2021-10-16 18:20] VITALS: BP 117/68; PULSE 76; RESP 18; TEMP 36.8; O2SAT 98; BMI 19.3
--- NOTE | 2021-10-16 18:49 | HMH.EDUTC ---
[facility] [place] Disposition Clinical Impression: Sinusitis Qualifiers: Sinusitis location: unspecified location Chronicity: unspecified Qualified Code(s): J32.9 - Chronic sinusitis, unspecified Disposition: Home, Self-Care Condition on Discharge: Good Instructions: DI for Sinusitis, Sinusitis Additional Instructions: ? Start antibiotic today. Be sure to complete entire prescription even if feeling better ? Monitor temp. Tylenol every 4 hours as needed and / or ibuprofen every 6 hours as needed ( As long as your primary care physician has told you that it ok to take both. For fever/aches/pains ER if no less than 101 despite Tylenol or Motrin ? Humidifier/vaporizer or hot steamy shower *Warm salt water gargles may help to soothe the throat *Throat Lozenges *Warm fluids like tea with honey may help to soothe the throat *Sleep elevated ? Mucinex for your cough and congestion Be sure to drink lots of water. *Start steroid today. Helps with inflammation therefore, cough and wheezing. Follow directions on the package. Reviewed side effects. Patient reports taking them before. Follow up IMMEDIATELY for new or worsening of symptoms OR no noticeable improvement over the next 48-72 hours. 911 immediately for any life threatening symptoms such as chest pain or difficulty breathing Prescriptions: methylPREDNISolone [Medrol 4mg tab] 4 mg PO DIRECTED #21 tab [email or web address] guaiFENesin [Mucinex 600mg tablet] 600 mg PO BID PRN #20 tab PRN Reason: Congestion Transmission Status: [email or web address] Azithromycin [Z-Josue 250mg Tab] 250 mg PO DIRECTED #6 tab Transmission Status: Pending to [facility] Referrals: Provider,Referral, [Primary Care Provider] - As needed Time of Disposition: 19:00 Medical Decision Making - Isidro Inquiry Pt receiving controlled substance: No Isidro was queried for this patient: No Vital Signs: 10/16/21 18:20 Temperature 98.2 F Temperature Source Oral Pulse Rate [Left Brachial] 76 Respiratory Rate 18 Blood Pressure [Left Arm] 117/68 Blood Pressure Mean [Left Arm] 84 Blood Pressure Source [Left Arm] Automatic Cuff Blood Pressure Position [Left Arm] Sitting 02 Sat by Pulse Oximetry 98 Oxygen Delivery Method Room Air Medical Decision Narrative: Patient denies states that she just got off her period yesterday [facility] [place] HPI - General Stated complaint: runny nose dania itchy throat Time Seen by Provider: 10/16/21 18:49 Mode of Arrival: Ambulatory Source of Information: Patient Limitations: No Limitations Description of Symptoms (Recalled from Triage Doc. by RN): PATIENT C/O CHEST AND NASAL CONGESTION AND SCRATCHY THROAT X 1 WEEK HEENT Symptoms (Recalled from RN notes): Yes Resp Symptoms (Recalled from RN notes): Yes Skin Symptoms (Recalled from RN notes): No MS Symptoms (Recalled from RN notes): No Functional Status (Recalled from RN notes): WNL - History of Present Illness Provider Complaint: Patient states that she has been having sinus congestion and pressure and sore scratchy throat for about a week States that she feels like it is trying to move into her chest States that today she was still having the pressure so she came in to get checked out - Related Data Home Medications Medication Instructions Recorded Confirmed norethindrone 1 mg-ethinyl 1 tab PO DAILY 07/29/21 07/29/21 estradiol 10 mcg (24)-iron 10 mcg(2) tablet Previous Rx's Medication Instructions Recorded Azithromycin [Z-Josue 250mg Tab] 250 mg PO DIRECTED #6 tab 10/16/21 guaiFENesin [Mucinex 600mg tablet] 600 mg PO BID PRN #20 tab 10/16/21 methylPREDNISolone [Medrol 4mg 4 mg PO DIRECTED #21 tab 10/16/21 tab] Allergies Allergy/AdvReac Type Severity Reaction Status Date / Time No Known Allergies Allergy Verified 07/29/21 10:11 - Worker's Comp Is this a Worker's Comp case?: No [facility] History - Hepatitis A Sc
[2021-10-16 19:02] VITALS: BP 117/68; PULSE 76; RESP 18; TEMP 36.8; O2SAT 98
== END 2021-10-16 19:05 | disposition home or self-care (01) ==
PROVIDERS: Emergency Provider Nurse Practitioner
DX: J32.9 Chronic sinusitis, unspecified (principal)
CPT/HCPCS: 99212; G0463

== ENCOUNTER 2021-12-15 08:26 | Emergency (ER) | payer MEDICAID, SELFPAY ==
[2021-12-15 08:35] VITALS: BP 125/94; PULSE 82; RESP 17; TEMP 37; O2SAT 99; BMI 23.4
[2021-12-15 08:49] LABS: Coronavirus 19, PCR Not Detected (NotDetected); Influenza A, PCR Not Detected (NotDetected); Influenza B, PCR Not Detected (NotDetected)
--- NOTE | 2021-12-15 08:53 | XR_ITS ---
FINAL REPORT CLINICAL HISTORY: CHRONIC COUGH COMPARISON: 04/18/2021 FINDINGS: Two views of the chest were obtained. The heart size and pulmonary vascularity are within normal limits. The mediastinum is normal. No acute pulmonary abnormality is identified. There is no pneumothorax. The bony thorax is intact. IMPRESSION: No active cardiopulmonary disease. Reviewed, Interpreted and Dictated by Geoffrey Castillo III, MD Transcribed by Nellie Pedersen Authenticated and [facility]
[2021-12-15 09:01] VITALS: BP 119/56; PULSE 72; O2SAT 99
--- NOTE | 2021-12-15 09:22 | PC.NURSE ---
Notified rad of CXR
[2021-12-15 09:30] VITALS: BP 128/79; PULSE 74; RESP 18; O2SAT 97
--- NOTE | 2021-12-15 09:49 | HMH.EDGENADL ---
Discharge Plan Disposition Patient Disposition: Home, Self-Care Condition: Good Prescriptions Prescriptions: New amoxicillin-pot clavulanate [Augmentin] 500-125 mg tablet 1 tab PO Q8H Qty: 30 0RF methylprednisolone [Medrol (Josue)] 4 mg tablets,dose pack 4 mg PO DAILY Qty: 21 0RF No Action Lo Loestrin Fe 1 mg-10 mcg (24)/10 mcg (2) tablet 1 tab PO DAILY azithromycin 250 MG tablet 250 mg PO DIRECTED Qty: 6 0RF Rx Instructions: Take two (2) tablets on day #1, then one (1) tablet day #2 thru #5 methylprednisolone 4 MG tablet 4 mg PO DIRECTED Qty: 21 0RF Rx Instructions: Take as directed on package instructions guaifenesin 600 MG tablet extended release 12hr 600 mg PO BID PRN (Reason: Congestion) Qty: 20 0RF Referrals Follow up/Referrals: Provider,Referral, MD [Primary Care Provider] - See instructions Activity Restrictions/Add. Instructions Additional Instructions/Restrictions: Augmentin and Medrol Dosepak as prescribed. [id number] Mucinex as needed for cough. You are being provided with a list of physicians available for follow-up of your condition. Please call a physician on this list to arrange a follow-up appointment as soon as possible. Clinical Impressions Clinical Impression: Acute sinusitis Discharge ED Provider: Lee Ma General Adult HPI General Chief complaint: Upper Respiratory Infection Stated complaint: sore throat, cough, runny nose, congestion Time Seen by Provider: 12/15/21 09:49 Mode of Arrival: Ambulatory Source of Information: Patient Limitations: No Limitations Description of Symptoms (Recalled from ER Triage Doc. by RN): Pt c/o cough, congestion, itchy throat x1 week. Requests COVID swab History of Present Illness HPI narrative: 1 week history of cough, sinus pressure, nasal congestion and rhinorrhea, itchy throat. States when she blows her nose out of the left side she gets mucus and blood. Temperature not taken. Using multiple [id number]-rtoqzzi medications without relief. Past medical history of sinusitis requiring antibiotics and steroids. Related Data Home Medications Medication Instructions Recorded Confirmed norethindrone 1 mg-ethinyl 1 tab PO DAILY 07/29/21 07/29/21 estradiol 10 mcg (24)-iron 10 mcg(2) tablet (Lo Loestrin Fe) Previous Rx's Medication Instructions Recorded azithromycin 250 mg tablet 250 mg PO DIRECTED #6 tabs 10/16/21 guaifenesin 600 mg tablet, 600 mg PO BID PRN Congestion #20 10/16/21 extended release 12 hr tabs methylprednisolone 4 mg tablet 4 mg PO DIRECTED #21 tabs 10/16/21 amoxicillin 500 mg-potassium 1 tab PO Q8H #30 tabs 12/15/21 clavulanate 125 mg tablet (Augmentin) methylprednisolone 4 mg tablets in 4 mg PO DAILY #21 tabs 12/15/21 a dose pack (Medrol (Josue)) Allergies Allergy/AdvReac Type Severity Reaction Status Date / Time No Known Allergies Allergy Verified 07/29/21 10:11 PFSH PFSH Social History Smoking Status: Current every day smoker tobacco type: cigarettes packs per day: 1 alcohol intake: never substance use type: denies use current occupational status: other Travel in the last 8 weeks: None housing: house ROS Obtained: Yes Systems reviewed as appropriate & no additional complaints except as documented Constitutional Constitutional: Reports as per HPI ENT Ears, Nose, Mouth, and Throat: Reports epistaxis, Reports nasal congestion, Reports nasal discharge, Reports post nasal drip, Reports sinus pain, Reports sinus pressure and Reports sore throat Cardiovascular Cardiovascular: Denies chest pain Respiratory Respiratory: Reports non-productive cough Gastrointestinal Gastrointestingal: Denies diarrhea or vomiting Physical Exam General General appearance: alert and in no apparent distress Eye Eye exam: Present normal appearance and EOMI ENT ENT exam: Present normal oropharynx, mucous membranes moist and TM's normal bilater
--- NOTE | 2021-12-15 09:52 | PC.NURSE ---
CRYSTAL HORNER at bedside.
[2021-12-15 10:16] VITALS: BP 120/63; PULSE 69; RESP 16; TEMP 36.5; O2SAT 98
== END 2021-12-15 10:15 | disposition home or self-care (01) ==
PROVIDERS: Emergency Provider Emergency Medicine
DX: J01.90 Acute sinusitis, unspecified (principal)
CPT/HCPCS: 71046; 99283; C9803; U0003; U0005

== ENCOUNTER 2022-04-03 10:31 | Emergency (ER) | payer MEDICAID, SELFPAY ==
--- NOTE | 2022-04-03 11:42 | EXP.UTC ---
Discharge Plan Disposition Patient Disposition: Home, Self-Care Condition: Good Prescriptions Prescriptions: New azithromycin [Zithromax] 250 mg tablet 250 mg PO UD DOSE PK Qty: 6 0RF Rx Instructions: Take two (2) tablets today, then one (1) tablet days #2 thru #5 Referrals Follow up/Referrals: Provider,Referral, [Primary Care Provider] - See instructions Activity Restrictions/Add. Instructions Additional Instructions/Restrictions: Drink plenty of fluids. Take tylenol or ibuprofen for pain or fever. Take the medications as directed. Follow up with your regular doctor. GO TO THE ER FOR ANY WORSENING SYMPTOMS Clinical Impressions Clinical Impression: Acute sinusitis, Stand Alone Forms Stand Alone Forms: Work/School Release Instructions Patient Instructions: Sinusitis, DI for Sinusitis Discharge ED Provider: Angel Rodriguez [facility] [place] HPI General Stated complaint: sore and swollen throat Time Seen by Provider: 04/03/22 11:42 History of Present Illness Provider Complaint: She states that for the past 4 days she has had sore throat, sinus congestion and a cough. Her period is late also, so she would like to be checked for . Related Data Previous Rx's Medication Instructions Recorded azithromycin 250 mg tablet 250 mg PO UD DOSE PK #6 tabs 04/03/22 (Zithromax) Allergies Allergy/AdvReac Type Severity Reaction Status Date / Time No Known Allergies Allergy Verified 04/03/22 11:49 [facility] Disclaimer: The information contained in this section may have been updated after the patient was seen, as this information can be updated by other users. Social History Smoking Status: Current every day smoker tobacco type: cigarettes packs per day: 1 alcohol intake: never substance use type: denies use current occupational status: other Travel in the last 8 weeks: None housing: house ROS Obtained: Yes All systems reviewed & no additional complaints except as documented Constitutional Constitutional: Reports chills and Reports fever(s) Eyes Eyes: Denies eye discharge ENT Ears, Nose, Mouth, and Throat: Reports as per HPI Cardiovascular Cardiovascular: Denies chest pain Respiratory Respiratory: Denies chest congestion and Reports cough Gastrointestinal Gastrointestingal: Reports nausea; Denies abdominal pain, constipation, cramping, diarrhea or vomiting Musculoskeletal Musculoskeletal: Denies arthralgias Integumentary/Breasts Skin/Breast: Denies rash Neurologic Neurologic: Denies paresthesias Physical Exam General General appearance: alert and in no apparent distress Head Head exam: atraumatic, normocephalic and normal inspection Eye Eye exam: Present normal appearance, PERRL and EOMI ENT ENT exam: Present mucous membranes moist and normal external ear exam Expanded ENT Exam TM/Canal exam: Bilateral TM: erythema and bulging Nose exam: Absent sinus tenderness Mouth exam: Present normal external inspection; Absent drooling Teeth exam: Present normal inspection Throat exam: Present tonsillar erythema, tonsillomegaly and tonsillar exudate Neck Neck exam: Present normal inspection, full ROM and trachea midline; Absent tenderness, meningismus or lymphadenopathy Chest Chest inspection: Present normal inspection and symmetric chest wall rise; Absent tenderness Respiratory Respiratory exam: Present normal lung sounds bilaterally; Absent respiratory distress or wheezes Cardiovascular Cardiovascular exam: Present regular rate and normal rhythm; Absent systolic murmur or diastolic murmur Abdominal Exam Abdominal exam: Present soft and normal bowel sounds; Absent distention, tenderness, guarding, rebound or rigidity Extremities Exam Extremities exam: Present normal inspection and normal capillary refill; Absent calf tenderness Back Exam Back exam: Present normal inspection and full ROM; Absent tenderness, CV
[2022-04-03 11:45] VITALS: BP 122/79; PULSE 75; RESP 20; TEMP 36.9; O2SAT 98; BMI 23.8
[2022-04-03 11:51] LABS: UTC Strep Screen (Rapid) Negative (Negative)
[2022-04-03 12:10] LABS: UTC Pregnancy Test, Urine Positive (Negative)
[2022-04-03 12:24] VITALS: BP 122/79; PULSE 75; RESP 20; TEMP 36.9; O2SAT 98
== END 2022-04-03 12:24 | disposition home or self-care (01) ==
PROVIDERS: Emergency Provider Nurse Practitioner Family
DX: J01.90 Acute sinusitis, unspecified (principal); Z33.1 Pregnant state, incidental
CPT/HCPCS: 31299; 81025; 87880; 99212; 99213; G0463

== ENCOUNTER → 2022-04-04 11:31 | Outpatient (CLI) | payer MEDICAID, SELFPAY ==
[2022-04-04 13:27] LABS: HCG,Quantitative 44 mIU/ml (0-5.42)
[2022-04-05 11:14] LABS: Progesterone 10.8 ng/mL (.)
== END ==
PROVIDERS: PCP Physician Assistant; Visit Provider Obstetrics & Gynecology
DX: N92.6 Irregular menstruation, unspecified (principal); Z32.00 Encounter for pregnancy test, result unknown
CPT/HCPCS: 36415; 84144; 84702

== ENCOUNTER → 2022-04-06 14:30 | Outpatient (CLI) | payer MEDICAID, SELFPAY ==
[2022-04-06 17:01] LABS: HCG,Quantitative 99 mIU/ml (0-5.42)
== END ==
PROVIDERS: PCP Physician Assistant; Visit Provider Obstetrics & Gynecology
DX: N92.6 Irregular menstruation, unspecified (principal); Z32.00 Encounter for pregnancy test, result unknown
CPT/HCPCS: 36415; 84702

== ENCOUNTER → 2022-04-13 14:29 | Outpatient (CLI) | payer MEDICAID, SELFPAY ==
[2022-04-13 16:31] LABS: HCG,Quantitative 2681 mIU/ml (0-5.42)
== END ==
PROVIDERS: PCP Physician Assistant; Visit Provider Obstetrics & Gynecology
DX: N92.6 Irregular menstruation, unspecified (principal); Z32.00 Encounter for pregnancy test, result unknown
CPT/HCPCS: 36415; 84702

== ENCOUNTER 2022-04-15 15:51 | Emergency (ER) | payer MEDICAID, SELFPAY ==
[2022-04-15] VITALS (7 sets, daily range): BP systolic 110–126; BP diastolic 68–76; PULSE 76–88; RESP 12–20; TEMP 36.5–36.8; O2SAT 98–99; BMI 23.8
[2022-04-15 16:05] LABS: Microscopic, Urine URINE MICROSCOPIC (MICROSCOPIC)
--- NOTE | 2022-04-15 16:06 | PC.NURSE ---
called lab for type/screen collection
[2022-04-15 16:07] LABS: Appearance,Urine CLEAR (Clear); Bilirubin,Urine Negative (Negative); Blood, Urine Negative (Negative); Color,Urine YELLOW (Yellow); Glucose,Urine (UA) Negative (Negative); Ketones,Urine Negative (Negative); Leukocyte Esterase,Urine Negative (Negative); Nitrate,Urine Negative (Negative); PH,Urine 6.5 (5.0-8.5); Protein,Urine Negative (Negative); Urobilinogen,Urine 0.2 EU/dl (0.2)
[2022-04-15 16:13] LABS: Squamous Epithelial Cell,Urine Occasional #/hpf (0-5); WBC,Urine Occasional #/hpf (0-3)
[2022-04-15 16:28] LABS: Urine Pregnancy, HCG Qual. Positive (Negative)
--- NOTE | 2022-04-15 16:28 | PC.NURSE ---
ER AT BEDSIDE
--- NOTE | 2022-04-15 16:31 | US_ITS ---
PROCEDURE INFORMATION: Exam: US Retroperitoneal Complete, Kidneys Aorta IVC. Exam date and time: 04/15/2022 5:25 PM Age: 26 years old Clinical indication: Abdominal pain; Flank; Left; ; Additional info: , bleeding, L flank pain TECHNIQUE: Imaging protocol: Real-time ultrasound of the retroperitoneum with image documentation. Complete exam. COMPARISON: CT ABDOMEN PELVIS W CON 02/21/2021 5:08 AM FINDINGS: Right kidney: No stones. No hydronephrosis. Measuring 12.5 by 10 x 4 cm Left kidney: No stones. No hydronephrosis. . 17 x 9.4 x 5.4 cm. Spleen: Unremarkable measuring 7.9 x 2.8 x 7.2 cm with volume of 83 cc. Aorta: Normal. No aneurysm. Common iliac arteries: Normal. Inferior vena cava: Normal. IMPRESSION: Larger left kidney but without hydronephrosis seen.
--- NOTE | 2022-04-15 16:31 | US_ITS ---
PROCEDURE INFORMATION: Exam: US , Transvaginal Exam date and time: 04/15/2022 5:10 PM Age: 26 years old Clinical indication: Lmp or gestational age (in weeks): Unsure poss 7w; Antepartum complications; Bleeding; ; Additional info: , bleeding, L flank pain TECHNIQUE: Imaging protocol: Real-time transvaginal obstetrical ultrasound of the maternal pelvis with image documentation. Transvaginal imaging was used for better evaluation of the fetus, adnexa, and/or cervix. COMPARISON: US TRANSVAGINAL 08/03/2021 10:23 AM FINDINGS: Gestation: Intrauterine gestational sac measuring 0.75 cm mean sac diameter for estimated gestational age of 5 weeks, 3 days. Yolk sac identified. No pole identified. Right ovary measures.3 x 2.2 x 1.8 cm with small peripheral follicles. Left ovary measures 4.1 x 2.6 x 2.6 cm with small peripheral follicles. No free fluid identified. IMPRESSION: 1. Intrauterine gestational and yolk sacs identified for estimated gestational age of 5 weeks 3 days. No pole identified, likely too early. Beta HCG correlation recommended. 2. Both ovaries with small peripheral follicles. Although nonspecific, can be seen with PCOS.
--- NOTE | 2022-04-15 16:32 | HMH.EDGENADL ---
Discharge Plan Disposition Patient Disposition: Home, Self-Care Condition: Good Chief Complaint: Abdominal Pain Prescriptions Prescriptions: No Action promethazine 25 mg tablet 25 mg PO Q8HP PRN (Reason: nausea and vomiting) Qty: 20 1RF azithromycin [Zithromax] 250 mg tablet 250 mg PO UD DOSE PK Qty: 6 0RF Rx Instructions: Take two (2) tablets today, then one (1) tablet days #2 thru #5 Referrals Follow up/Referrals: Audrey Tinoco PA [Primary Care Provider] - See instructions Activity Restrictions/Add. Instructions Additional Instructions/Restrictions: Tylenol for pain. Fiber supplement daily for constipation. Follow-up with Dr. Tamayo for care as scheduled. No strenuous activity or sexual intercourse for 2 days. Return to the emergency department if heavier bleeding or any severe pelvic pain. Clinical Impressions Clinical Impression: Low back pain, , , threatened Instructions Patient Instructions: DI for Threatened Discharge ED Provider: Lee Ma General Adult HPI General Chief complaint: Abdominal Pain Stated complaint: Apox 8 wks preg pain and bleeding vomiting Time Seen by Provider: 04/15/22 16:21 Mode of Arrival: Ambulatory Source of Information: Patient Limitations: No Limitations Description of Symptoms (Recalled from ER Triage Doc. by RN): Pt presents c/o left flank pain onset 14:50 today with bleeding, reports LMP 01/2023 and approx 8 wks plus PMHx left ovarian cyst removal 2013 History of Present Illness HPI narrative: Patient states she is approximately 8 weeks gestation , prima , and now has vaginal bleeding/spotting and left flank pain that started today. She has some urinary hesitancy. She has had some vomiting. She has not had a bowel movement in a couple of days, she also says that she thinks she may have irritable bowel syndrome. States that she has a prior history of ovarian cysts and has previously been told that she was not able to get . Family has therefore declared that she is a high risk . She is not had a visit yet, but has been getting serial beta-hCG levels through the office of Dr. Tamayo and has an appointment with her in April. Related Data Previous Rx's Medication Instructions Recorded azithromycin 250 mg tablet 250 mg PO UD DOSE PK #6 tabs 04/03/22 (Zithromax) promethazine 25 mg tablet 25 mg PO Q8HP PRN nausea and 04/07/22 vomiting #20 tabs Allergies Allergy/AdvReac Type Severity Reaction Status Date / Time No Known Allergies Allergy Verified 04/03/22 11:49 [facility] Disclaimer: The information contained in this section may have been updated after the patient was seen, as this information can be updated by other users. Social History Smoking Status: Current every day smoker tobacco type: cigarettes packs per day: 1 alcohol intake: never substance use type: denies use current occupational status: other Travel in the last 8 weeks: None housing: house ROS Obtained: Yes Systems reviewed as appropriate & no additional complaints except as documented Constitutional Constitutional: Denies fever(s), Denies headache(s) and Denies weakness ENT Ears, Nose, Mouth, and Throat: Denies headache(s), Denies nasal discharge and Denies sore throat Cardiovascular Cardiovascular: Denies chest pain Respiratory Respiratory: Denies shortness of breath and Denies cough Gastrointestinal Gastrointestingal: Reports constipation and vomiting; Denies abdominal pain or diarrhea Genitourinary Female Genitourinary: Reports abnormal vaginal bleeding, Reports difficulty voiding, Denies dysuria, Reports flank pain and Reports urinary hesitancy Musculoskeletal Musculoskeletal: Denies numbness Neurologic Neurologic: Denies headache(s), Denies numbness and Denies weakness Physical Exam General Gen
[2022-04-15 16:53] LABS: Basophils % 0.3 % (0.1-2.0); Eosinophils # 0.1 K/mm3 (0.0-0.4); Eosinophils % 0.5 % (0.1-12.0); Hematocrit 39.1 % (37.0-47.0); Hemoglobin 13.2 g/dL (12.2-16.2); Lymphocytes # 2.2 K/mm3 (0.7-4.5); Lymphocytes % 16.4 % (10-50); Mean Corpuscular HGB Conc 33.7 g/dL (31.8-35.4); Mean Corpuscular Hemoglobin 30.6 pg (27.0-31.2); Mean Corpuscular Volume 90.8 fl (81-99); Mean Platelet Volume 7.6 fl (7.4-10.4); Monocytes # 0.4 K/mm3 (0.1-1.0); Monocytes % 2.9 % (1.7-9.3); Neutrophils # 10.5 K/mm3 (1.8-7.8); Neutrophils % 79.9 % (37.0-80.0); Platelet Count 400 K/mm3 (142-424); Red Blood Count 4.31 M/mm3 (4.20-5.40); Red Cell Distribution Width 13.7 % (11.5-17.5); White Blood Count 13.1 K/mm3 (4.8-10.8)
[2022-04-15 16:54] LABS: Chloride 109 mmol/L (98-107); Potassium 3.5 mmoL/L (3.5-5.1); Sodium 138 mmol/L (136-145)
[2022-04-15 16:57] LABS: Alanine Aminotransferase 30 U/L (12-78); Albumin Level 4.2 g/dl (3.5-5.0); Albumin/Globulin Ratio 1.4 (1.1-1.8); Alkaline Phosphatase 55 U/L (38-126); Anion Gap 6.5 mEq/L (5-15); Aspartate Amino Transferase 39 U/L (14-36); Bilirubin,Total 0.6 mg/dl (0.2-1.3); Blood Urea Nitrogen 9 mg/dl (7-17); Carbon Dioxide 26 mmol/L (22.0-30.0); Creatinine Clearance Estimated 122 mL/min (50-200); Estimated Glomerular Filt Rate 123 ml/min (>60); GFR (African American) 149 ML/MIN (>60); Globulin 2.9 g/dL (1.3-3.2); Total Protein,Serum 7.1 g/dl (6.3-8.2)
[2022-04-15 16:58] LABS: Glucose 108 mg/dl (74-100)
[2022-04-15 17:14] LABS: HCG,Quantitative 6992 mIU/ml (0-5.42)
--- NOTE | 2022-04-15 18:23 | PC.NURSE ---
ER AT BEDSIDE
== END 2022-04-15 18:41 | disposition home or self-care (01) ==
PROVIDERS: Emergency Provider Emergency Medicine; PCP Physician Assistant
DX: O20.0 Threatened abortion (principal); F17.210 Nicotine dependence, cigarettes, uncomplicated
CPT/HCPCS: 76770; 76817; 80053; 81001; 81025; 84702; 85025; 86900; 86901; 99285

== ENCOUNTER → 2022-04-28 15:50 | Outpatient (CLI) | payer MEDICAID, SELFPAY | PROVIDERS: Visit Provider Obstetrics & Gynecology | DX: Z34.90 Encounter for supervision of normal pregnancy, unspecified, unspecified trimester (principal) | CPT/HCPCS: 87086 ==

== ENCOUNTER → 2022-05-03 10:57 | Outpatient (CLI) | payer MEDICAID, SELFPAY ==
[2022-05-03 11:30] LABS: Basophils % 0.5 % (0.1-2.0); Eosinophils # 0.1 K/mm3 (0.0-0.4); Eosinophils % 0.7 % (0.1-12.0); Hematocrit 37.2 % (37.0-47.0); Hemoglobin 12.5 g/dL (12.2-16.2); Lymphocytes # 1.9 K/mm3 (0.7-4.5); Lymphocytes % 20.8 % (10-50); Mean Corpuscular HGB Conc 33.6 g/dL (31.8-35.4); Mean Corpuscular Volume 92.5 fl (81-99); Mean Platelet Volume 7.7 fl (7.4-10.4); Monocytes # 0.5 K/mm3 (0.1-1.0); Monocytes % 5.4 % (1.7-9.3); Neutrophils # 6.5 K/mm3 (1.8-7.8); Neutrophils % 72.6 % (37.0-80.0); Platelet Count 357 K/mm3 (142-424); Red Blood Count 4.02 M/mm3 (4.20-5.40); Red Cell Distribution Width 13.7 % (11.5-17.5); White Blood Count 8.9 K/mm3 (4.8-10.8)
[2022-05-04 15:04] LABS: Rapid Plasma Reagin Ab Titer Non Reactive (NonRea<1:1)
[2022-05-06 02:34] LABS: HIV Screen 4th Generation wRfx Non Reactive
[2022-05-06 02:35] LABS: Hepatitis B Surface Antigen Negative; Hepatitis C Antibody Non Reactive; Rubella Antibodies, IgG 3.77
== END ==
PROVIDERS: PCP Physician Assistant; Visit Provider Obstetrics & Gynecology
DX: Z34.90 Encounter for supervision of normal pregnancy, unspecified, unspecified trimester (principal)
CPT/HCPCS: 36415; 85025; 86593; 86703; 86762; 86850; 87340; 87380; G0432

== ENCOUNTER 2022-07-03 14:21 | Emergency (ER) | payer MEDICAID, SELFPAY ==
[2022-07-03 14:30] VITALS: BP 116/74; PULSE 71; RESP 18; TEMP 36.8; O2SAT 98; BMI 20.5
[2022-07-03 14:48] LABS: UTC Strep Screen (Rapid) Negative (Negative)
--- NOTE | 2022-07-03 14:50 | EXP.UTC ---
Discharge Plan Disposition Patient Disposition: Home, Self-Care Condition: Good Prescriptions Prescriptions: New fluticasone propionate [Flonase Allergy Relief] 50 mcg/actuation spray,suspension 1 - 2 spray intranasal DAILY Qty: 16 0RF Rx Instructions: administer into each nostril azithromycin [Zithromax Z-Josue] 250 mg tablet See Rx Instructions .ROUTE .COMPLEX 5 Days Qty: 6 0RF Rx Instructions: For 250 mg dose pack: take 500 mg today (day 1), then 250 mg for 4 days (days 2-5) No Action prenat.vits,radha,[id number] Tablet 1 tab PO DAILY Referrals Follow up/Referrals: Audrey Tinoco PA [Primary Care Provider] - See instructions Activity Restrictions/Add. Instructions Additional Instructions/Restrictions: *Monitor Temp, Over the counter Motrin or Tylenol as directed/as needed Tylenol every 4 hours and Motrin every 6 hours (as long as your family doctor has told you that you can take it) for fever or pain. and straight to ER if unable to lower temp less than 101.0 after medication given *Warm salt water gargles may help to soothe the throat *Throat Lozenges? *Warm fluids like tea with honey may help to soothe the throat? *Sleep elevated *Humidifier/Vaporizer Your throat swab was sent for culture. Those results are typically sent to your primary care. Be sure to follow up in 2-3 days with your family doctor/primary care physician if no improvement so they can review those result and treat if necessary. If you don?t have a primary care doctor, I recommend you get one but in the mean time, you will have to return to a walk in clinic Follow up IMMEDIATELY for new or worsening symptoms or no Noticeable improvement over the next 48-72 hours. 911 for difficulty breathing or swallowing Clinical Impressions Clinical Impression: Sinusitis Instructions Patient Instructions: DI for Sinusitis, Sinusitis Discharge ED Provider: Stephanie Garland [facility] [place] HPI General Stated complaint: Sore throat, cough, headache Mode of Arrival: Ambulatory Source of Information: Patient Limitations: No Limitations Time Seen by Provider: 07/03/22 14:50 Description of Symptoms (Recalled from Triage Doc. by RN): PATIENT C/O DRY TONGUE, SORE THROAT AND SINUS PRESSURE X 2 DAYS HEENT Symptoms (Recalled from RN notes): Yes Resp Symptoms (Recalled from RN notes): No Skin Symptoms (Recalled from RN notes): No MS Symptoms (Recalled from RN notes): No Functional Status (Recalled from RN notes): WNL History of Present Illness Provider Complaint: Patient states that she has been having sinus pain and pressure with drainage in the back of her throat, sore throat and yesterday she had blisters on her throat that is gone now States that she is 16wks OB and worried that she may have a sinus infection or strep throat Related Data Home Medications Medication Instructions Recorded Confirmed prenat.vits,radha,kyq-apsa-nicdm 1 tab PO DAILY 04/28/22 06/20/22 Previous Rx's Medication Instructions Recorded azithromycin 250 mg tablet See Rx Instructions PO .COMPLEX 5 07/03/22 (Zithromax Z-Josue) days #6 tabs fluticasone propionate 50 1 - 2 spray intranasal DAILY #16 07/03/22 mcg/actuation nasal grams spray,suspension (Flonase Allergy Relief) Allergies Allergy/AdvReac Type Severity Reaction Status Date / Time No Known Allergies Allergy Verified 06/20/22 10:52 Worker's Comp Is this a Worker's Comp case?: No [facility] Disclaimer: The information contained in this section may have been updated after the patient was seen, as this information can be updated by other users. Medical History Left ovarian cyst Nausea and vomiting in Tobacco use affecting , antepartum Family History Other No significant family history Social History (Reviewed 06/20/22 @ 11:02
[2022-07-03 15:03] VITALS: BP 116/74; PULSE 71; RESP 18; TEMP 36.8; O2SAT 98
== END 2022-07-03 15:05 | disposition home or self-care (01) ==
PROVIDERS: Emergency Provider Nurse Practitioner; PCP Physician Assistant
DX: O99.512 Diseases of the respiratory system complicating pregnancy, second trimester (principal); J01.90 Acute sinusitis, unspecified; O99.332 Smoking (tobacco) complicating pregnancy, second trimester; F17.210 Nicotine dependence, cigarettes, uncomplicated; Z3A.16 16 weeks gestation of pregnancy; R07.0 Pain in throat
CPT/HCPCS: 87880; 99212; 99214; G0463

== ENCOUNTER → 2022-08-01 13:53 | Outpatient (CLI) | payer MEDICAID, SELFPAY ==
--- NOTE | 2022-08-01 13:56 | US_ITS ---
PROCEDURE: US OB /MATERNAL DETAIL CLINICAL INDICATION: 20 week anatomy scan COMPARISON: US US OB TRANSVAGINAL from 04/15/2022 FINDINGS: Single viable intrauterine gestation. Breech position. Placenta: Anteriorplacenta grade 1. There are few small placental lakes. There is average amount fluid. The cervix appears satisfactory. Closed and measuring 3.3 cm in length. Complete survey performed and was unremarkable on the submitted images as in PACS. No discrete anomalies identified on survey imaging by technologist. Active fetus. Three-vessel cord with satisfactory umbilical cord insertion. 4- chamber heart noted. LVOT appears normal. RVOT and aortic arch appear normal, there is a small ICEF left ventricle. Survey of brain & ventricles Unremarkable. Choroid plexus, thalamus, cerebellum and cisterna magna appear normal. Face and neck survey unremarkable. Upper lip and nasion appear normal. Profile appears normal. Diaphragm and chest views unremarkable. Abdomen: Both kidneys noted and unremarkable. Stomach noted and satisfactory. Bladder normal. Spine: Survey of the spine satisfactory with no anomalies identified nor imaged. Upper, thoracic and sacrum appear normal. Both arms and legs noted. Amniotic Fluid: Adequate. Maternal adnexa: Not visualized. Measurements: Average ultrasound age 20weeks 4 days. Gestational Age 20weeks 5 days Estimated due date by ultrasound age 1012/15/2022. Estimated weight 354g BPD = 20weeks 4days OFD = 21weeks 4days HC = 20weeks 3days AC = 20weeks 6days FL = 20weeks 1day Cerebellum = 20weeks 2days Humerus = 21weeks 1day Growth Percentile= 32 percentile Heart Rate = 139bpm HC/AC is 1.15 CI is 0.73 FL/BPD is 0.68 FL/AC is 0.21 IMPRESSION: 1. Viable fetus in the breech presentation with an anterior placenta grade 1. 2. Size and dates are appropriate. 3. Anatomical scan appears normal. 4. There is a small intracardiac echogenic focus within the left ventricle. Dictated by: Isaiah Guthrie MD 08/02/2022 16:20 Isaiah Guthrie MD in OV 08/02/2022 16:20
== END ==
PROVIDERS: PCP Physician Assistant; Visit Provider Obstetrics & Gynecology
DX: Z34.90 Encounter for supervision of normal pregnancy, unspecified, unspecified trimester (principal); Z3A.20 20 weeks gestation of pregnancy
CPT/HCPCS: 76811

== ENCOUNTER → 2022-09-26 07:57 | Outpatient (CLI) | payer MEDICAID, SELFPAY ==
[2022-09-26 08:28] LABS: Basophils % 0.3 % (0.1-2.0); Eosinophils # 0.1 K/mm3 (0.0-0.4); Eosinophils % 1.3 % (0.1-12.0); Hematocrit 34.3 % (37.0-47.0); Hemoglobin 11.1 g/dL (12.2-16.2); Lymphocytes # 1.8 K/mm3 (0.7-4.5); Lymphocytes % 17.4 % (10-50); Mean Corpuscular HGB Conc 32.5 g/dL (31.8-35.4); Mean Corpuscular Hemoglobin 29.4 pg (27.0-31.2); Mean Corpuscular Volume 90.5 fl (81-99); Mean Platelet Volume 7.6 fl (7.4-10.4); Monocytes # 0.7 K/mm3 (0.1-1.0); Monocytes % 6.5 % (1.7-9.3); Neutrophils # 7.9 K/mm3 (1.8-7.8); Neutrophils % 74.5 % (37.0-80.0); Platelet Count 459 K/mm3 (142-424); Red Blood Count 3.79 M/mm3 (4.20-5.40); Red Cell Distribution Width 13.9 % (11.5-17.5); White Blood Count 10.6 K/mm3 (4.8-10.8)
[2022-09-26 08:35] LABS: Glucose,Fasting 87 mg/dl (74-100)
[2022-09-26 10:08] LABS: Glucose 1 Hour 169 mg/dL (74-100)
== END ==
PROVIDERS: PCP Physician Assistant; Visit Provider Obstetrics & Gynecology
DX: Z34.93 Encounter for supervision of normal pregnancy, unspecified, third trimester (principal); Z3A.29 29 weeks gestation of pregnancy
CPT/HCPCS: 36415; 82951; 85025

== ENCOUNTER → 2022-10-17 08:29 | Outpatient (CLI) | payer MEDICAID, SELFPAY ==
[2022-10-17 09:09] LABS: Glucose,Fasting 84 mg/dl (74-100)
[2022-10-17 10:47] LABS: Glucose 1 Hour 186 mg/dL (74-100)
[2022-10-17 11:27] LABS: Glucose 2 Hour 174 mg/dL (74-100)
[2022-10-17 12:20] LABS: Glucose 3 Hour 159 mg/dL (74-100)
== END ==
PROVIDERS: PCP Physician Assistant; Visit Provider Obstetrics & Gynecology
DX: Z34.93 Encounter for supervision of normal pregnancy, unspecified, third trimester (principal); Z3A.31 31 weeks gestation of pregnancy
CPT/HCPCS: 36415; 82951

== ENCOUNTER 2022-10-17 15:34 | Emergency (ER) | payer MEDICAID, SELFPAY ==
[2022-10-17 15:35] VITALS: BP 117/67; PULSE 109; RESP 20; TEMP 36.9; O2SAT 94; BMI 27.3
--- NOTE | 2022-10-17 15:51 | HMH.EDGENADL ---
Discharge Plan Disposition Patient Disposition: Home, Self-Care Prescriptions Prescriptions: New amoxicillin 875 mg tablet 875 mg PO BID Qty: 20 0RF No Action famotidine [Pepcid] 20 mg tablet 20 mg PO BID Qty: 60 2RF prenat.vits,radha,[id number]-pdsyp Tablet 1 tab PO DAILY Referrals Follow up/Referrals: Shannan Palencia [Primary Care Provider] - See instructions Activity Restrictions/Add. Instructions Additional Instructions/Restrictions: Call your family doctor to establish care for this visit to the emergency department and schedule follow-up within 48 hours to ensure improvement. If you have any worsening of your condition or any other concerning signs or symptoms, return to the emergency department or your primary care doctor for further evaluation. Daily Zyrtec or Claritin in addition to 10 days of antibiotic. Clinical Impressions Clinical Impression: Acute otitis media, right Discharge ED Provider: Philip Nino General Adult HPI General Chief complaint: Upper Respiratory Infection Stated complaint: congestion, cough, right ear pain Time Seen by Provider: 10/17/22 15:40 Mode of Arrival: Ambulatory Source of Information: Patient Limitations: No Limitations Description of Symptoms (Recalled from ER Triage Doc. by RN): Patient states that she has right ear pain and congestion for 1 week. Patient is 31 weeks . History of Present Illness HPI narrative: Patient currently 31 weeks presenting with right-sided ear pain and throat pain. Patient states she started coughing and sneezing 2 days prior to arrival. Mother prior to arrival, developed pain in her right ear. Does not radiate, moderate to severe in intensity, crescendo in nature. Stabbing. Not associate with hearing loss, patient denies pain with range of motion of neck, difficulty swallowing, difficulty breathing, or dysphonia. Has been taking Tylenol, unsure if she has been febrile. No other associated symptoms or sick contacts Related Data Home Medications Medication Instructions Recorded Confirmed prenat.vits,radha,[id number]-fnwsh 1 tab PO DAILY 04/28/22 10/12/22 Previous Rx's Medication Instructions Recorded famotidine 20 mg tablet (Pepcid) 20 mg PO BID #60 tabs 09/12/22 amoxicillin 875 mg tablet 875 mg PO BID #20 tabs 10/17/22 Allergies Allergy/AdvReac Type Severity Reaction Status Date / Time No Known Allergies Allergy Verified 10/12/22 13:48 PFSH PFSH Disclaimer: The information contained in this section may have been updated after the patient was seen, as this information can be updated by other users. Medical History Heartburn during Left ovarian cyst Nausea and vomiting in Size of fetus inconsistent with dates in third trimester Tobacco use affecting , antepartum Family History Other No significant family history Social History Smoking Status: Current every day smoker tobacco type: cigarettes packs per day: 1 alcohol intake: never substance use type: denies use current occupational status: employed Travel in the last 8 weeks: None housing: house ROS Obtained: Yes All systems reviewed & no additional complaints except as documented Physical Exam General General appearance: alert, in no apparent distress and other ( ) Head Head exam: atraumatic and normocephalic Eye Eye exam: Present normal appearance, PERRL and EOMI ENT ENT exam: Present mucous membranes moist and other (Right-sided otitis media with purulent effusion. Left-sided serous effusion. No evidence of tonsillitis, exudate, pharyngeal erythema, uvular deviation, palatal swelling, dental abscess, angioedema, or other abnormal judie pharyngeal findings) Neck Neck exam: Present normal inspection, full ROM and trachea midline; A
[2022-10-17 16:08] VITALS: BP 120/69; PULSE 116; RESP 18; TEMP 36.9; O2SAT 94
== END 2022-10-17 16:09 | disposition home or self-care (01) ==
PROVIDERS: Emergency Provider Emergency Medicine; PCP Family Medicine
DX: O99.891 Other specified diseases and conditions complicating pregnancy (principal); H66.91 Otitis media, unspecified, right ear; Z3A.31 31 weeks gestation of pregnancy; F17.210 Nicotine dependence, cigarettes, uncomplicated; O99.333 Smoking (tobacco) complicating pregnancy, third trimester
CPT/HCPCS: 99283

== ENCOUNTER 2022-10-20 23:21 | Emergency (ER) | payer MEDICAID, SELFPAY ==
[2022-10-20 23:25] VITALS: BP 127/83; PULSE 89; RESP 20; TEMP 36.6; O2SAT 99; BMI 27.3
[2022-10-20 23:39] LABS: Coronavirus 19, PCR Not Detected (NotDetected); Influenza A, PCR Not Detected (NotDetected); Influenza B, PCR Not Detected (NotDetected)
--- NOTE | 2022-10-20 23:40 | HMH.EDGENADL ---
Discharge Plan Disposition Patient Disposition: Still a Patient Condition: Good Chief Complaint: Abdominal Pain Prescriptions Prescriptions: No Action prenat.vits,radha,[id number] Tablet 1 tab PO DAILY amoxicillin 875 mg tablet 875 mg PO BID Qty: 20 0RF Referrals Follow up/Referrals: Audrey Tinoco PA [Primary Care Provider] - See instructions Clinical Impressions Clinical Impression: Nausea, Abdominal pain affecting , Myalgia Instructions Patient Instructions: DI for Acute Abdominal Pain Discharge ED Provider: Dakota Gr General Adult HPI General Chief complaint: Abdominal Pain Stated complaint: Bilateral leg pain no accident,vomiting Time Seen by Provider: 10/20/22 23:32 History of Present Illness HPI narrative: This 26-year-old female G1, P0 at approximately 32 weeks gestational age presents to the emergency department with multiple complaints including subjective fever, bilateral distal lower extremity muscle aches, nausea without vomiting, abdominal pain, persistent cough despite being on amoxicillin for the last 4 days. She denies back pain. Patient states her symptoms worsened tonight and she presented for evaluation. Patient states she failed her glucose test this week and was told to manage her blood sugar with diet. She states she has not felt movement in the last 30 minutes. Related Data Home Medications Medication Instructions Recorded Confirmed prenat.vits,radha,wop-xseg-bbirm 1 tab PO DAILY 04/28/22 10/20/22 amoxicillin 875 mg tablet 875 mg PO BID Cough 10/20/22 10/20/22 Allergies Allergy/AdvReac Type Severity Reaction Status Date / Time No Known Allergies Allergy Verified 10/12/22 13:48 [facility] Disclaimer: The information contained in this section may have been updated after the patient was seen, as this information can be updated by other users. Medical History (Updated 10/20/22 @ 23:54 by Dakota Gr MD) Gestational diabetes mellitus Heartburn during Left ovarian cyst Nausea and vomiting in Size of fetus inconsistent with dates in third trimester Tobacco use affecting , antepartum Family History Other No significant family history Social History Smoking Status: Current every day smoker tobacco type: cigarettes packs per day: 1 alcohol intake: never substance use type: denies use current occupational status: employed Travel in the last 8 weeks: None housing: house ROS Obtained: Yes All systems reviewed & no additional complaints except as documented Constitutional Constitutional: Denies chills, Denies fever(s), Denies headache(s) and Denies weakness Eyes Eyes: Denies change in vision ENT Ears, Nose, Mouth, and Throat: Denies dizziness, Denies headache(s), Denies nasal congestion and Denies sore throat Cardiovascular Cardiovascular: Denies chest pain, Denies dyspnea and Denies leg edema Respiratory Respiratory: Reports cough and Denies dyspnea Gastrointestinal Gastrointestingal: Reports nausea; Denies constipation, diarrhea or vomiting Genitourinary Female Genitourinary: Denies dysuria Musculoskeletal Musculoskeletal: Reports as per HPI, Denies arthralgias, Reports myalgias, Denies numbness and Denies tingling Comments: No limb swelling Integumentary/Breasts Skin/Breast: Denies change in pigmentation Neurologic Neurologic: Denies dizziness, Denies headache(s), Denies numbness, Denies tingling and Denies weakness Physical Exam General General appearance: alert and in no apparent distress Head Head exam: atraumatic and normocephalic Eye Eye exam: Present PERRL and EOMI ENT ENT exam: Present mucous membranes moist Neck Neck exam: Present normal inspection and full ROM Chest Chest inspection: Present symmetric chest wall rise Respiratory Respiratory exam: A
--- NOTE | 2022-10-20 23:41 | PC.NURSE ---
Dr. Gr speaking with Dr. Belkis ENRIQUE section leader screen printing
[2022-10-20 23:50] VITALS: BP 127/83; PULSE 89; RESP 20; TEMP 36.6; O2SAT 99
[2022-10-21 00:01] LABS: Alanine Aminotransferase 30 U/L (12-78); Albumin Level 3.2 g/dl (3.5-5.0); Albumin/Globulin Ratio 0.9 (1.1-1.8); Alkaline Phosphatase 181 U/L (38-126); Anion Gap 11.7 mEq/L (5-15); Aspartate Amino Transferase 30 U/L (14-36); Bilirubin,Total 0.5 mg/dl (0.2-1.3); Blood Urea Nitrogen 7 mg/dl (7-17); Calcium 8.7 mg/dl (8.4-10.2); Carbon Dioxide 23 mmol/L (22.0-30.0); Chloride 107 mmol/L (98-107); Creatinine Clearance Estimated 174 mL/min (50-200); Estimated Glomerular Filt Rate 152 ml/min (>60); GFR (African American) 183 ML/MIN (>60); Globulin 3.4 g/dL (1.3-3.2); Glucose 89 mg/dl (74-100); Potassium 3.7 mmoL/L (3.5-5.1); Sodium 138 mmol/L (136-145); Total Protein,Serum 6.6 g/dl (6.3-8.2)
[2022-10-21 00:02] LABS: Microscopic, Urine URINE MICROSCOPIC (MICROSCOPIC)
[2022-10-21 00:02] LABS: Basophils % 0.2 % (0.1-2.0); Eosinophils # 0.1 K/mm3 (0.0-0.4); Eosinophils % 1.2 % (0.1-12.0); Hematocrit 34.1 % (37.0-47.0); Hemoglobin 11.2 g/dL (12.2-16.2); Lymphocytes # 2.1 K/mm3 (0.7-4.5); Lymphocytes % 17.2 % (10-50); Mean Corpuscular HGB Conc 32.9 g/dL (31.8-35.4); Mean Corpuscular Hemoglobin 29.1 pg (27.0-31.2); Mean Corpuscular Volume 88.3 fl (81-99); Mean Platelet Volume 7.2 fl (7.4-10.4); Monocytes # 0.6 K/mm3 (0.1-1.0); Neutrophils # 9.2 K/mm3 (1.8-7.8); Neutrophils % 76.4 % (37.0-80.0); Platelet Count 442 K/mm3 (142-424); Red Blood Count 3.86 M/mm3 (4.20-5.40); Red Cell Distribution Width 14.6 % (11.5-17.5); White Blood Count 12.1 K/mm3 (4.8-10.8)
[2022-10-21 00:22] LABS: Appearance,Urine CLEAR (Clear); Bilirubin,Urine Negative (Negative); Blood, Urine Negative (Negative); Color,Urine YELLOW (Yellow); Glucose,Urine (UA) Negative (Negative); Ketones,Urine Negative (Negative); Leukocyte Esterase,Urine TRACE (Negative); Nitrate,Urine Negative (Negative); Protein,Urine Negative (Negative); Urobilinogen,Urine 0.2 EU/dl (0.2)
[2022-10-21 00:44] LABS: Bacteria,Urine Trace /lpf
== END 2022-10-21 00:08 | disposition still patient (30) ==
LOC: ER 10-21 00:18
PROVIDERS: Emergency Provider Emergency Medicine; PCP Physician Assistant
DX: O26.893 Other specified pregnancy related conditions, third trimester (principal); R10.9 Unspecified abdominal pain; Z3A.32 32 weeks gestation of pregnancy; R11.0 Nausea; M79.18 Myalgia, other site; O24.410 Gestational diabetes mellitus in pregnancy, diet controlled; O99.333 Smoking (tobacco) complicating pregnancy, third trimester; F17.210 Nicotine dependence, cigarettes, uncomplicated
CPT/HCPCS: 80053; 81001; 85025; 87636; 99285

== ENCOUNTER 2022-10-20 23:47 | Outpatient (CLI) | payer MEDICAID, SELFPAY ==
[2022-10-20 23:55] VITALS: BMI 27.5
[2022-10-21 00:15] VITALS: BP 101/53; PULSE 84; RESP 17; TEMP 36.7; O2SAT 95; BMI 25.0
[2022-10-21 02:24] LABS: Amphetamine/Metha Screen,Urine Negative ng/ml (<1000); Barbiturates Screen,Urine Negative ng/ml (<200)
[2022-10-21 02:25] LABS: Benzodiazepines Screen,Urine Negative ng/ml (<200)
[2022-10-21 02:26] LABS: Cannabinoid Screen,Urine Negative ng/ml (<50); Cocaine Screen,Urine Negative ng/ml (<300)
[2022-10-21 02:27] LABS: Methadone Screen,Urine Negative ng/ml (<300); Opiate Screen,Urine Negative ng/ml (<300)
[2022-10-21 02:28] LABS: Phencyclidine Screen,Urine Negative ng/ml (<25)
== END 2022-10-21 01:12 | disposition home or self-care (01) ==
LOC: OBOUT 23:49 → OB 23:50
PROVIDERS: Visit Provider Obstetrics & Gynecology
DX: O26.893 Other specified pregnancy related conditions, third trimester (principal); Z3A.32 32 weeks gestation of pregnancy; R11.2 Nausea with vomiting, unspecified
CPT/HCPCS: 59025; 80305; 80307; 96365; 96367; G0463

== ENCOUNTER → 2022-10-24 11:23 | Outpatient (CLI) | payer MEDICAID, SELFPAY ==
--- NOTE | 2022-10-24 | US_ITS ---
PROCEDURE: US OB BIOPHYSICAL PROFILE CLINICAL INDICATION: COMPARISON: FINDINGS: Transabdominal sonographic images of the uterus were obtained. From her established due date she is 32weeks 5days. The following parameters are obtained: Viable fetus in the cephalic presentation with an anterior placenta grade 2. heart tones are present. Average ultrasound age is 32weeks 1day. Estimated due date by ultrasound is 12/18/2022. Estimated weight is 4lb 2.25oz, 1878 grams. Cervix measures 4.0 cm. There appears to be some minimal funneling of the inner os. There is a 2nd measurement that has the cervix 2.6 cm long. 20 percentile BPD: 32 weeks 1 day OFD: 28weeks 4days HC: 32 weeks 2 days AC: 31 weeks 5 days FL: 32 weeks 3 days HC/AC: 1.06 Cephalic index: 0.86 FL/BPD: 0.78 FL/AC: 0.23 Amniotic fluid index: 9.94cm Qualitative AFV: 2 breathing movements: 2 Gross body movements: 2 Tone: 2 Biophysical profile score: 8 Doppler evaluation of the umbilical artery: SD ratio: 2.54 Resistive index: 0.61 No obvious anomalies evident.Kidneys, bladder, stomach, three-vessel cord, 4 chamber heart appear normal. IMPRESSION: 1. Viable fetus in the cephalic presentation with anterior placenta grade 2. 2. The fluid is within normal limits with an amniotic fluid index of 9.94 cm. 3. The cervix appears normal in length but one view shows it slightly shortened at 2.6 cm. There is some funneling of the internal os. If this is a concern, a transvaginal view of the cervical length would be helpful. 4. SD ratio and biophysical profile are normal. There is good movement and breathing movement seen. Biophysical profile 10/03. 5. There has been good interval growth with the fetus currently 20th percentile. Dictated by: Isaiah Guthrie MD 10/25/2022 17:29 Isaiah Guthrie MD in OV 10/25/2022 17:29
== END ==
PROVIDERS: PCP Family Medicine; Visit Provider Obstetrics & Gynecology
DX: O36.5930 Maternal care for other known or suspected poor fetal growth, third trimester, not applicable or unspecified (principal); O24.419 Gestational diabetes mellitus in pregnancy, unspecified control; Z3A.32 32 weeks gestation of pregnancy
CPT/HCPCS: 76816; 76819; 76820

== ENCOUNTER → 2022-11-07 23:29 | Outpatient (CLI) | payer MEDICAID, SELFPAY | PROVIDERS: PCP Family Medicine; Visit Provider Obstetrics & Gynecology | DX: Z34.93 Encounter for supervision of normal pregnancy, unspecified, third trimester (principal); Z3A.34 34 weeks gestation of pregnancy; B96.5 Pseudomonas (aeruginosa) (mallei) (pseudomallei) as the cause of diseases classified elsewhere | CPT/HCPCS: 87086; 87088; 87186 ==

== ENCOUNTER → 2022-11-11 11:44 | Outpatient (CLI) | payer MEDICAID, SELFPAY ==
[2022-11-11 12:00] VITALS: BMI 27.9
[2022-11-11 12:12] VITALS: BP 138/76; PULSE 88; RESP 18; TEMP 36.7; O2SAT 98
[2022-11-11 13:20] VITALS: BP 110/79; PULSE 97; RESP 17; TEMP 36.8; O2SAT 97
== END ==
PROVIDERS: PCP Physician Assistant; Visit Provider Obstetrics & Gynecology
DX: N39.0 Urinary tract infection, site not specified (principal)
CPT/HCPCS: 96365

== ENCOUNTER → 2022-11-15 23:17 | Outpatient (CLI) | payer MEDICAID, SELFPAY | LOC: LAB.DROPOF 23:18 | PROVIDERS: PCP Physician Assistant; Visit Provider Obstetrics & Gynecology | DX: Z34.93 Encounter for supervision of normal pregnancy, unspecified, third trimester (principal); Z3A.35 35 weeks gestation of pregnancy | CPT/HCPCS: 86403 ==

== ENCOUNTER 2022-11-22 15:55 | Inpatient (IN) | payer MEDICAID, SELFPAY ==
[2022-11-22 16:21] VITALS: BMI 27.7
[2022-11-22 17:16] LABS: Microscopic, Urine URINE MICROSCOPIC (MICROSCOPIC)
[2022-11-22 17:48] LABS: Basophils % 0.2 % (0.1-2.0); Eosinophils # 0.1 K/mm3 (0.0-0.4); Eosinophils % 0.6 % (0.1-12.0); Hematocrit 35.1 % (37.0-47.0); Hemoglobin 11.3 g/dL (12.2-16.2); Lymphocytes # 1.5 K/mm3 (0.7-4.5); Lymphocytes % 14.5 % (10-50); Mean Corpuscular HGB Conc 32.3 g/dL (31.8-35.4); Mean Corpuscular Hemoglobin 27.6 pg (27.0-31.2); Mean Corpuscular Volume 85.3 fl (81-99); Mean Platelet Volume 8.2 fl (7.4-10.4); Monocytes # 0.7 K/mm3 (0.1-1.0); Monocytes % 6.1 % (1.7-9.3); Neutrophils # 8.3 K/mm3 (1.8-7.8); Neutrophils % 78.6 % (37.0-80.0); Platelet Count 426 K/mm3 (142-424); Red Blood Count 4.11 M/mm3 (4.20-5.40); Red Cell Distribution Width 15.5 % (11.5-17.5); White Blood Count 10.6 K/mm3 (4.8-10.8)
[2022-11-22 17:58] LABS: Appearance,Urine CLEAR (Clear); Bilirubin,Urine Negative (Negative); Blood, Urine Negative (Negative); Color,Urine YELLOW (Yellow); Glucose,Urine (UA) Negative (Negative); Ketones,Urine Negative (Negative); Leukocyte Esterase,Urine 1+ (Negative); Nitrate,Urine Negative (Negative); Protein,Urine Negative (Negative); Urobilinogen,Urine 0.2 EU/dl (0.2)
[2022-11-22 18:09] LABS: Benzodiazepines Screen,Urine Negative ng/ml (<200)
[2022-11-22 18:10] LABS: Amphetamine/Metha Screen,Urine Negative ng/ml (<1000); Barbiturates Screen,Urine Negative ng/ml (<200)
[2022-11-22 18:11] LABS: Cannabinoid Screen,Urine Negative ng/ml (<50); Methadone Screen,Urine Negative ng/ml (<300)
[2022-11-22 18:12] LABS: Cocaine Screen,Urine Negative ng/ml (<300)
[2022-11-22 18:13] LABS: Opiate Screen,Urine Negative ng/ml (<300); Phencyclidine Screen,Urine Negative ng/ml (<25)
[2022-11-22 18:31] VITALS: BP 113/55; PULSE 80; RESP 16; TEMP 37; O2SAT 97; BMI 27.7
--- NOTE | 2022-11-23 07:27 | HMH.PHAINT1 ---
Pharmacy Intervention Comments: MEDICATION RECONCILIATION COMPLETED ON PATIENT USING EXTERNAL FILL HISTORY FROM PHARMACY. -JESSICA MOE, MACKENZIED
--- NOTE | 2022-11-23 08:32 | EXP.OB.APHP ---
OB - H&P: HPI Antepartum History of Present Illness Chief complaint: Scheduled induction of labor History of present illness: Ms Mili Del Rio is a 26 yo at 37w0d who presents to [facility] L[facility] for induction of labor secondary to growth restriction. Ultrasound with PDC 11/16/22 demonstrated EFW 11 %ile but AC 1 %ile. Admits to low back pain and pelvic pressure. She is a GDMA2 taking Glyburide 1.25 mg PO daily. She has had good care. Baby is active. History of Present Criteria for establishing EDC:: based on 1st trimester US only care: good care Ultrasounds: normal mid trimester US and abnormal US findings (growth restriction) Obstetrical complications: gestational diabetes and growth restriction Medical complications: none Labs Blood type: A (+) positive Rubella: immune RPR/VDRL: nonreactive GBS status: negative HBsAG: negative [facility] Disclaimer: The information contained in this section may have been updated after the patient was seen, as this information can be updated by other users. Medical History (Updated 11/23/22 @ 08:40 by Judit Tamayo DO) 37 weeks gestation of Asymmetric IUGR affecting , antepartum Gestational diabetes mellitus Heartburn during Left ovarian cyst Nausea and vomiting in Size of fetus inconsistent with dates in third trimester Tobacco use affecting , antepartum Surgical History (Updated 11/22/22 @ 19:20 by Senait Plata RN) History of removal of ovarian cyst Family History Other No significant family history Social History Smoking Status: Current every day smoker tobacco type: cigarettes packs per day: 1 alcohol intake: never substance use type: denies use current occupational status: employed Travel in the last 8 weeks: None housing: house Review of Systems Review of Systems Review of systems:: pertinent systems reviewed and negative unless documented below *Genitourinary Genitourinary: Reports other (Pelvic pressure) *Musculoskeletal Musculoskeletal: Reports back pain Meds Home Medications and Allergies Home Medications Medication Instructions Recorded Confirmed Type blood sugar diagnostic (Accu-Chek 11/23/22 11/23/22 History Guide test strips) blood-glucose meter 11/23/22 11/23/22 History glyburide 1.25 mg tablet 1.25 mg PO DAILY Diabetes 11/23/22 11/23/22 History lancets (Accu-Chek Softclix 11/23/22 11/23/22 History Lancets) vit no.95-ferrous 1 tab PO DAILY Supplement 11/23/22 11/23/22 History fumarate 28 mg-folic acid 800 mcg tablet () New Prescriptions to Start Prescriptions: Allergies Allergy/AdvReac Type Severity Reaction Status Date / Time No Known Allergies Allergy Verified 11/21/22 11:27 OB - H&P: Exam Physical Exam Vital signs: Temp Pulse Resp BP Pulse Ox O2 Del Method 98.6 F 80 16 113/55 L 97 Room Air 11/22/22 18:31 11/22/22 18:31 11/22/22 18:31 11/22/22 18:31 11/22/22 18:31 11/22/22 18:31 Constitutional no acute distress and cooperative Routine HEENT Exam Head: Present normocephalic and atraumatic Eye: Absent conjunctivae pink ENT: Present mucous membranes moist Routine Neck Exam Present full ROM Routine Respiratory Exam Present CTA bilaterally and normal respiratory effort Routine Cardiovascular Exam Present RRR Routine Abdominal Exam Present soft (Gravid); Absent tenderness Routine Rectal Exam Patient deferred: visual exam Routine Exam Patient deferred: external exam Routine Extremities Exam Present full ROM; Absent edema or calf tenderness Routine Neurological Exam Present alert, oriented X3 and moving all extremities Routine Psychiatric Exam Present normal affect and cooperative Detailed Labor and Delivery Exam Dilation (cm): 4 Effacement (%): 70 s
--- NOTE | 2022-11-23 08:54 | P.PNANES_ITS ---
[facility] Disclaimer: The information contained in this section may have been updated after the patient was seen, as this information can be updated by other users. Medical History 37 weeks gestation of Asymmetric IUGR affecting , antepartum Gestational diabetes mellitus Heartburn during Left ovarian cyst Nausea and vomiting in Size of fetus inconsistent with dates in third trimester Tobacco use affecting , antepartum Surgical History History of removal of ovarian cyst Family History Other No significant family history Social History Smoking Status: Current every day smoker tobacco type: cigarettes packs per day: 1 alcohol intake: never substance use type: denies use current occupational status: employed Travel in the last 8 weeks: None housing: house [facility] Anesthesia Checklist Patient Identification Patient Identification: Arm Band and Verbal (Name & ) Structural Data Admitted From: Inpatient Planned Operative Procedure/s: Labor epidural Consent for Planned Operative Procedure(s) Verified: Yes NPO Status Verified Time NPO: 08:00 Chart Verification Results Verified: CBC Additional verifications Patient : Yes Anesthesia Reactions: No Airway Assessment Mallampati Score:: Class II C-Spine Mobility Assessed: Yes TMJ Mobility Assessed: Yes Dentition: Poor Dentition Neurological Assessment Level of Consciousness: Awake Hx Seizures: No Numbness or tingling in extremities: No Anesthesia Plan Anesthesia Risk discussed: Yes Anesthesia Plan: Verified ASA Class: II Anesthesia Type: Epidural
--- NOTE | 2022-11-23 12:20 | P.PCN_ITS ---
Delivery Note Delivery Date:: 11/23/22 Delivery Time:: 12:10 Anesthesia Type: Epidural Was labor medically induced?: Yes Induction method: per misoprostol protocol Gestational age (weeks): 37 Infant delivered prior to 39 weeks?: Yes Justification for early elective delivery:: IUGR Infant Gender: Male at 1 minute: 7 at 5 minutes: 8 Delivery Procedure:: Mom complete with epidural. Pushed for approximately 15 minutes. Head delivered spontaneously over intact perineum in JANNETTE position. No nuchal cord. Anterior shoulder delivered with gentle downward pressure. Posterior shoulder and remainder of body delivered spontaneously. Baby placed on maternal abdomen, mo uth and nares bulb suctioned, warmed/dried and stimulated. Delayed cord clamping was performed for 60 seconds. Cord was clamped and cut. Cord blood was obtained. Placenta delivered spontaneously and intact. Placenta will be sent to pathology for review. No lacerations. Mom and baby were skin to skin and doing well after delivery. Live male baby (baby's name is Denilson) APGARs 7, 8 EBL 50 mL Placental Delivery Description: Spontaneous
[2022-11-24 06:45] LABS: Basophils % 0.1 % (0.1-2.0); Eosinophils # 0.1 K/mm3 (0.0-0.4); Eosinophils % 0.9 % (0.1-12.0); Hematocrit 36.6 % (37.0-47.0); Hemoglobin 11.3 g/dL (12.2-16.2); Lymphocytes # 1.7 K/mm3 (0.7-4.5); Lymphocytes % 15.2 % (10-50); Mean Corpuscular HGB Conc 30.8 g/dL (31.8-35.4); Mean Corpuscular Hemoglobin 26.9 pg (27.0-31.2); Mean Corpuscular Volume 87.4 fl (81-99); Mean Platelet Volume 8.5 fl (7.4-10.4); Monocytes # 0.6 K/mm3 (0.1-1.0); Monocytes % 5.4 % (1.7-9.3); Neutrophils # 8.7 K/mm3 (1.8-7.8); Neutrophils % 78.4 % (37.0-80.0); Platelet Count 362 K/mm3 (142-424); Red Blood Count 4.19 M/mm3 (4.20-5.40); Red Cell Distribution Width 15.5 % (11.5-17.5); White Blood Count 11.1 K/mm3 (4.8-10.8)
--- NOTE | 2022-11-24 08:32 | P.PN_ITS ---
Subjective *Date: 11/24/22 *Time: 08:32 Interval history: PPD # 1 s/p Mili is sitting comfortably in rocking chair. Pain controlled. Appropriate lochia. Breast feeding. Voiding without difficulty and passing flatus. Tolerating regular diet. No fever/chills, chest pain or shortness of breath. Denies headaches, vision changes, dizziness/lightheadedness. No swelling. Ambulating well ad janell. Medical Exam Vital signs and Labs for Last 24 Hours: Laboratory Results - last 24 hr 11/24/22 06:17: WBC 11.1 H, RBC 4.19 L, Hgb 11.3 L, Hct 36.6 L, MCV 87.4, MCH 26.9 L, MCHC 30.8 L, RDW 15.5, Plt Count 362, MPV 8.5, Neut % (Auto) 78.4, Lymph % (Auto) 15.2, [place] % (Auto) 5.4, Eos % (Auto) 0.9, Baso % (Auto) 0.1, Neut # (Auto) 8.7 H, Lymph # (Auto) 1.7, [place] # (Auto) 0.6, Eos # (Auto) 0.1, Baso # (Auto) 0.0 I & O for Labs for Last 24 Hours: Intake & Output 11/21/22 11/22/22 11/23/22 11/24/22 23:59 23:59 23:59 23:59 Weight 142 lb Microbiology Reports for the Last 24 Hours: Microbiology 11/22/22 17:10 Urine,Clean Catch Urine Culture - Preliminary NO GROWTH AFTER 24 HOURS Constitutional: Present no acute distress and cooperative Head: Present atraumatic and normocephalic ENT: Present mucous membranes moist Neck: Present full ROM Respiratory: Present CTA bilaterally and normal respiratory effort Cardiac: Present Reg Rate and Rhythm GI: Present soft; Absent distention or tenderness Comments:: Uterine fundus firm and below umbilicus Rectal (female): Present deferred (female): Present deferred Extremities: Present full ROM Neuro: Present alert, awake, oriented x 3 and moves all extremities Assessment and Plan *Assessment and plan (1) Status post vaginal delivery: Status: Acute Category: Surgical (2) 37 weeks gestation of : Status: Acute Category: Medical Code(s): Z3A.37 - 37 weeks gestation of (3) Asymmetric IUGR affecting , antepartum: Status: Acute Category: Medical Code(s): O36.5990 - Maternal care for other known or suspected poor growth, unspecified trimester, not applicable or unspecified (4) Gestational diabetes mellitus: Problem Comment: taking Glyburide 1.25 mg PO Status: Acute Qualifiers: Gestational diabetes mellitus control: unspecified Trimester: third trimester Qualified Code(s): O24.419 - Gestational diabetes mellitus in pregn marvin, unspecified control Category: Medical Code(s): O24.419 - Gestational diabetes mellitus in , unspecified control (5) Tobacco use affecting , antepartum: Status: Acute Category: Medical Code(s): O99.330 - Smoking (tobacco) complicating , unspecified trimester Plan Continue routine care Encouraged increased ambulation Plan d/c home PPD # 2
[2022-11-24 09:12] VITALS: BP 108/53; PULSE 68; RESP 20; TEMP 36.8; O2SAT 97
--- NOTE | 2022-11-24 09:51 | SW/DCPLANNER ---
Addendum entered by Elba Cole 11/29/22 10:35: Infant cord screen is NEGATIVE. Original Note: I received a referral on this patient regarding positive THC during . Patient tested positive for THC on 06/20/22. The following dates patient urine drug screen was negative: 08/15/22, 11/15/22, 11/17/22, 11/21/22 and admission 11/22/22. Infant urine drug screen is negative. Patient delivered male (Denilson Garcia) on 11/23/22. Patient's father was present at the time of my visit and will be involved: Denilson Garcia 89. Patient, Denilson, and roomate (Agapito Alexandre coworker at [employer]) will reside at [address] [place] [address] in [place] [address]. Patient's contact number is [phone]. Patient has spoke with [facility] and will be established. Patient is interested in HANDS and I will make contact regarding referral to services. Patient stated that she will have the following items at home: crib, carseat, clothing, diapers and will be bottle feeding. Patient stated PED MD is Dr Epstein and she will have transportation to all follow up appointments. Per OB nursing staff ([facility]) patient is appropriate w/ infant. Patient is expected to discharge home tomorrow 11/25/22 pending no setbacks. Patient stated that she stopped THC use once finding out she was . Patient has no further needs/questions at this time.
[2022-11-24 16:37] VITALS: BP 119/57; PULSE 68; RESP 18; TEMP 36.7; O2SAT 97
--- NOTE | 2022-11-25 08:52 | EXP.DC.SUM ---
General Admission date:: 11/22/22 Discharge date: 11/24/22 HPI HPI HPI: She is a 26-year-old 1 para 0 at 37 weeks gestational age. She has gestational diabetes on glyburide and was found to have a small for gestational age infant. The baby was 11 percentile with AC less than the 1 percentile. As result of that was recommended by [facility] that she be delivered at 37+ weeks. Hospital Course Hospital Course Hospital Course: She received Cytotec and then was started on IV oxytocin. She progressed to full dilation and delivered spontaneously a liveborn male child at 12:10 PM on the afternoon of November 23, 2022. The baby weighed 5 pounds 9 ounces 18 record inches long. He had Apgars of 7 at 1 minute and 8 at 5 minutes. She has a positive blood, Rubella immune group B streptococcus negative. She is discharged home today because the baby is being transferred to for breathing issues. She was given these instructions with respect to limiting her activity, driving and sexual activity. Her condition on discharge is stable and improved. Exam Data for Last 24 hours Vital signs and Labs for Last 24 Hours: Temp Pulse Resp BP Pulse Ox O2 Del Method 98.0 F 68 18 119/57 L 97 Room Air 11/24/22 16:37 11/24/22 16:37 11/24/22 16:37 11/24/22 16:37 11/24/22 16:37 11/24/22 16:37 I & O for Last 24 hours: Intake & Output 11/22/22 11/23/22 11/24/22 11/25/22 11:59 11:59 11:59 11:59 Weight 142 lb Microbiology Reports for the Last 24 Hours: Microbiology 11/22/22 17:10 Urine,Clean Catch Urine Culture - Final Multiple organisms, suggests contamination. Constitutional Constitutional: no acute distress DS: Diagnosis Discharge Diagnosis (1) Status post vaginal delivery: Status: Acute (2) 37 weeks gestation of : Status: Acute Code(s): Z3A.37 - 37 weeks gestation of (3) Asymmetric IUGR affecting , antepartum: Status: Acute Code(s): O36.5990 - Maternal care for other known or suspected poor growth, unspecified trimester, not applicable or unspecified (4) Gestational diabetes mellitus: Status: Acute Code(s): O24.419 - Gestational diabetes mellitus in , unspecified control Qualifiers: Gestational diabetes mellitus control: oral hypoglycemic-controlled Trimester: third trimester Qualified Code(s): O24.415 - Gestational diabetes mellitus in , controlled by oral hypoglycemic drugs Problem details: taking Glyburide 1.25 mg PO (5) Tobacco use affecting , antepartum: Status: Acute Code(s): O99.330 - Smoking (tobacco) complicating , unspecified trimester Meds Home Medications and Allergies Home Medications Medication Instructions Recorded Confirmed Type blood sugar diagnostic (Accu-Chek 11/23/22 11/23/22 History Guide test strips) blood-glucose meter 11/23/22 11/23/22 History glyburide 1.25 mg tablet 1.25 mg PO DAILY Diabetes 11/23/22 11/23/22 History lancets (Accu-Chek Softclix 11/23/22 11/23/22 History Lancets) vit no.95-ferrous 1 tab PO DAILY Supplement 11/23/22 11/23/22 History fumarate 28 mg-folic acid 800 mcg tablet () New Prescriptions to Start Prescriptions: Allergies Allergy/AdvReac Type Severity Reaction Status Date / Time No Known Allergies Allergy Verified 11/21/22 11:27 Discharge Plan Disposition Patient Disposition: Home, Self-Care Discharge Order Discharge Orders: Discharge Order (Routine); Ordered 11/24/22 Ordered By: Isaiah Guthrie Follow up Plan Prescriptions/Medication Reconciliation: Continued PNV cmb#95-ferrous fumarate-FA [] 28 mg iron- 800 mcg Tablet 1 tab PO DAILY (DME) blood-glucose meter Misc See Rx Instructions .ROUTE Rx Instructions: As directed (DME) Accu-Chek Guide jose
== END 2022-11-24 22:00 | disposition home or self-care (01) | DRG 807 ==
PROVIDERS: Nurse Practitioner Obstetrics & Gynecology; Admitting Provider Obstetrics & Gynecology; PCP Physician Assistant; Visit Provider Obstetrics & Gynecology
DX: O24.425 Gestational diabetes mellitus in childbirth, controlled by oral hypoglycemic drugs (principal); Z37.0 Single live birth; Z3A.37 37 weeks gestation of pregnancy; O36.5930 Maternal care for other known or suspected poor fetal growth, third trimester, not applicable or unspecified; O99.334 Smoking (tobacco) complicating childbirth
CPT/HCPCS: 59409; 36415; 59025; 80305; 81001; 85025; 86850; 87086; 88307; 94761; C1758; G0283; J0595

== ENCOUNTER 2022-11-27 22:48 | Emergency (ER) | payer MEDICAID, SELFPAY ==
[2022-11-27 22:51] VITALS: BP 138/95; PULSE 67; RESP 16; TEMP 36.9; O2SAT 98; BMI 28.3
--- NOTE | 2022-11-27 23:05 | HMH.EDGENADL ---
Discharge Plan Disposition Patient Disposition: Home, Self-Care Prescriptions Prescriptions: New ondansetron HCl 4 mg tablet 4 mg PO Q8H PRN (Reason: nausea and vomiting) 5 Days Qty: 30 0RF nitrofurantoin macrocrystal 100 mg capsule 100 mg PO BID 5 Days Qty: 10 0RF Rx Instructions: must administer with a meal/food No Action PNV cmb#95-ferrous fumarate-FA [] 28 mg iron- 800 mcg Tablet 1 tab PO DAILY (DME) blood-glucose meter Misc See Rx Instructions .ROUTE Rx Instructions: As directed (DME) Accu-Chek Guide test strips Strip See Rx Instructions .Route Rx Instructions: 4 times a day (DME) lancets [Accu-Chek Softclix Lancets] Misc See Rx Instructions .Route Rx Instructions: four times a day glyburide 1.25 mg tablet 1.25 mg PO DAILY Referrals Follow up/Referrals: Audrey Tinoco PA [Primary Care Provider] - See instructions Activity Restrictions/Add. Instructions Additional Instructions/Restrictions: Please take antibiotics as prescribed for possible UTI. Please take Zofran as needed for nausea and vomiting. Please continue to monitor for signs of infection. Please continue to remain hydrated. Please follow-up with your primary care provider. Please return to the emergency department if you develop any new or worsening symptoms or become concerned for your health. Clinical Impressions Clinical Impression: Abdominal pain, Nausea, vomiting, and diarrhea UTI (urinary tract infection) Qualifiers: Urinary tract infection type: site unspecified Hematuria presence: with hematuria Qualified Code(s): N39.0 - Urinary tract infection, site not specified Instructions Patient Instructions: DI for Diarrhea and Traveler's Diarrhea -- Adult, DI for Diarrhea and Traveler's Diarrhea -- Child, DI for Nausea -- Adult, DI for Nausea -- Child Discharge ED Provider: Lance Melo General Adult HPI General Chief complaint: Nausea/Vomiting/Diarrhea Stated complaint: 11/23 , abd pain Time Seen by Provider: 11/27/22 23:00 History of Present Illness HPI narrative: 26-year-old female, 4 days from her first . She had her baby at 37 weeks exactly. She had a unremarkable vaginal delivery, was complicated by gestational diabetes. Baby required transfer to the [facility] due to breathing issues. She presents with crampy lower abdominal pain, nausea and vomiting, diarrhea for the last 2 days. She denies any significant heavy bleeding. Denies any foul-smelling or purulent vaginal drainage. She reports that she has minimal light bloody vaginal discharge. She reports that she was treated for a UTI about a week before her delivery. She denies fever at home. She has had no surgeries and has no other medical issues. Related Data Home Medications Medication Instructions Recorded Confirmed blood sugar diagnostic (Accu-Chek 11/23/22 11/23/22 Guide test strips) blood-glucose meter 11/23/22 11/23/22 glyburide 1.25 mg tablet 1.25 mg PO DAILY Diabetes 11/23/22 11/23/22 lancets (Accu-Chek Softclix 11/23/22 11/23/22 Lancets) vit no.95-ferrous 1 tab PO DAILY Supplement 11/23/22 11/23/22 fumarate 28 mg-folic acid 800 mcg tablet () Previous Rx's Medication Instructions Recorded nitrofurantoin macrocrystal 100 mg 100 mg PO BID 5 days #10 caps 11/28/22 capsule ondansetron HCl 4 mg tablet 4 mg PO Q8H PRN nausea and 11/28/22 vomiting 5 days #30 tabs Allergies Allergy/AdvReac Type Severity Reaction Status Date / Time No Known Allergies Allergy Verified 11/21/22 11:27 [facility] Disclaimer: The information contained in this section may have been updated after the patient was seen, as this information can be updated by other users. Medical History (Updated 11/28/22 @ 00:12 by Valdez Parekh) 37 weeks gestation of Acute otitis med
[2022-11-27 23:19] LABS: Microscopic, Urine URINE MICROSCOPIC (MICROSCOPIC)
[2022-11-27 23:21] LABS: Appearance,Urine CLEAR (Clear); Bilirubin,Urine Negative (Negative); Blood, Urine 3+ (Negative); Color,Urine YELLOW (Yellow); Glucose,Urine (UA) Negative (Negative); Ketones,Urine Negative (Negative); Leukocyte Esterase,Urine 1+ (Negative); Nitrate,Urine Negative (Negative); Protein,Urine Negative (Negative); Urobilinogen,Urine 0.2 EU/dl (0.2)
[2022-11-27 23:21] LABS: Basophils # 0.1 K/mm3 (0-0.2); Basophils % 0.5 % (0.1-2.0); Eosinophils # 0.4 K/mm3 (0.0-0.4); Eosinophils % 3.8 % (0.1-12.0); Hematocrit 37.3 % (37.0-47.0); Hemoglobin 11.7 g/dL (12.2-16.2); Lymphocytes # 2.1 K/mm3 (0.7-4.5); Lymphocytes % 19.3 % (10-50); Mean Corpuscular HGB Conc 31.5 g/dL (31.8-35.4); Mean Corpuscular Hemoglobin 26.9 pg (27.0-31.2); Mean Corpuscular Volume 85.4 fl (81-99); Monocytes # 0.5 K/mm3 (0.1-1.0); Monocytes % 4.7 % (1.7-9.3); Neutrophils # 7.7 K/mm3 (1.8-7.8); Neutrophils % 71.7 % (37.0-80.0); Platelet Count 444 K/mm3 (142-424); Red Blood Count 4.37 M/mm3 (4.20-5.40); Red Cell Distribution Width 15.6 % (11.5-17.5); White Blood Count 10.8 K/mm3 (4.8-10.8)
[2022-11-27 23:25] LABS: Alanine Aminotransferase 20 U/L (12-78); Albumin Level 2.9 g/dl (3.5-5.0); Albumin/Globulin Ratio 0.9 (1.1-1.8); Alkaline Phosphatase 152 U/L (38-126); Anion Gap 8.6 mEq/L (5-15); Aspartate Amino Transferase 26 U/L (14-36); Bilirubin,Total < 0.1 mg/dl (0.2-1.3); Blood Urea Nitrogen 4 mg/dl (7-17); Calcium 8.7 mg/dl (8.4-10.2); Carbon Dioxide 26 mmol/L (22.0-30.0); Chloride 109 mmol/L (98-107); Creatinine Clearance Estimated 150 mL/min (50-200); Estimated Glomerular Filt Rate 123 ml/min (>60); GFR (African American) 149 ML/MIN (>60); Globulin 3.1 g/dL (1.3-3.2); Glucose 87 mg/dl (74-100); Lipase 63 U/L (23-300); Magnesium 1.8 mg/dl (1.6-2.3); Potassium 3.6 mmoL/L (3.5-5.1); Sodium 140 mmol/L (136-145)
[2022-11-27 23:43] LABS: Bacteria,Urine Trace /lpf; RBC,Urine 20-50 #/hpf (0-3); Squamous Epithelial Cell,Urine Occasional #/hpf (0-5)
[2022-11-28 00:16] VITALS: BP 145/89; PULSE 54; RESP 16; TEMP 36.7; O2SAT 94
--- NOTE | 2022-11-29 09:21 | PC.NURSE ---
0907- urine culture flagged on worklist, growing gram negative rods. Notified dr. curtis who is on shift in ED at this time. Pt on Macrobid 100 mg po BID x5 days. Dr. Curtis states no changes on medication needed at this time, okay to wait on culture ID and sensitivity to finish.
--- NOTE | 2022-12-06 15:47 | PC.NURSE ---
1530- notified Dr Merchant of pt urine culture ID and sensitivity. Pt d/c from ER on Macrobid on 11/27/22 Dr Merchant states to do a f/u call on pt to see how she is feeling, based on pt answer will address from there will possible need to change/order new antibiotic. attempted to call pt at this time, no answer, voicemail left requesting a return call.
--- NOTE | 2022-12-07 09:45 | PC.NURSE ---
attempted to contact pt at this time- no answer, voicemail left for pt again today at this time requesting a call back.
--- NOTE | 2022-12-07 17:10 | PC.NURSE ---
pt returned phone call at this time. 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 Notified pt urine culture growing bacteria. Pt states no urinary symptoms. Discussed with Dr. Nino- he viewed culture result and pt chart, states he will send in prescription for Keflex for pt. Notified pt we are sending in an antibiotic prescription to her pharmacy, take whole course of antibiotics. Pt verbalized understanding.
== END 2022-11-28 00:18 | disposition home or self-care (01) ==
PROVIDERS: Emergency Provider Emergency Medicine; PCP Physician Assistant
DX: O86.20 Urinary tract infection following delivery, unspecified (principal); O99.893 Other specified diseases and conditions complicating puerperium; R10.30 Lower abdominal pain, unspecified; R11.2 Nausea with vomiting, unspecified; R19.7 Diarrhea, unspecified; F17.210 Nicotine dependence, cigarettes, uncomplicated; N80.9 Endometriosis, unspecified
CPT/HCPCS: 80053; 81001; 83690; 83735; 85025; 87086; 87088; 96361; 96374; 96375; 99285; J2405

== ENCOUNTER 2023-03-22 14:48 | Emergency (ER) | payer MEDICAID, SELFPAY ==
[2023-03-22 14:49] VITALS: BP 143/72; PULSE 66; RESP 15; TEMP 36.8; O2SAT 95; BMI 20.1
[2023-03-22] MEDS: ACETAMINOPHEN 500MG TAB 1000 MG PO (15:21)
[2023-03-22] MEDS: IBUPROFEN 400 MG TABLET 800 MG PO (15:22)
[2023-03-22] MEDS: ONDANSETRON 4MG ODT 4 MG SL (15:22)
[2023-03-22 15:23] LABS: Coronavirus 19, PCR Not Detected (NotDetected); Influenza A, PCR Not Detected (NotDetected)
--- NOTE | 2023-03-22 15:23 | ED_ITS ---
Discharge Plan Disposition Patient Disposition: Home, Self-Care Condition: Good Prescriptions Prescriptions: New ondansetron 4 mg tablet,disintegrating 4 mg PO Q8H PRN (Reason: nausea and vomiting) 4 Days Qty: 12 0RF No Action medroxyprogesterone [Depo-Provera] 150 mg/mL suspension 150 mg IM [id number] Qty: 1 2RF Referrals Follow up/Referrals: Audrey Tinoco PA [Primary Care Provider] - See instructions Activity Restrictions/Add. Instructions Additional Instructions/Restrictions: You were evaluated in the emergency department today and diagnosed with a viral syndrome. Please bean picker your prescription for Zofran and take as needed for nausea and vomiting. Take Tylenol every 4 hours and ibuprofen every 6 hours as needed for pain and fevers. Follow-up with your primary care provider. Return to the emergency department for new or worsening symptoms. Clinical Impressions Clinical Impression: Acute viral syndrome, Influenza B Instructions Patient Instructions: DI for Viral Upper Respiratory Infection -- Adult, DI for Viral Syndrome Discharge ED Provider: Mili Curtis General Adult HPI General Chief complaint: Upper Respiratory Infection Stated complaint: cough, diarrhea, past fever, chills Time Seen by Provider: 03/22/23 15:02 Mode of Arrival: Ambulatory Source of Information: Patient Limitations: No Limitations Description of Symptoms (Recalled from ER Triage Doc. by RN): pt presents to ED with c/o weakness, chills, diarrhea, cough. cough, weakness, chills ongoing for 3 days. diarrhea began tody. pt reports that her has similar symptoms. History of Present Illness HPI narrative: This patient is a 27-year-old female who denies significant past medical history presenting to the emergency department for evaluation with concern for fevers, chills, cough, congestion, body aches, sore throat, nausea, poor appetite, and diarrhea for 3 days. Patient's at home has similar symptoms. She has been taking cold and flu medicine as well as cough syrup without good imp rovement. Given this, she decided to come in today. No other concerns noted at this time. Related Data Previous Rx's Medication Instructions Recorded medroxyprogesterone 150 mg/mL 150 mg IM [id number] #1 mL 12/13/22 intramuscular suspension (Depo-Provera) ondansetron 4 mg disintegrating 4 mg PO Q8H PRN nausea and 03/22/23 tablet vomiting 4 days #12 tabs Allergies Allergy/AdvReac Type Severity Reaction Status Date / Time No Known Allergies Allergy Verified 03/22/23 15:11 [facility] Disclaimer: The information contained in this section may have been updated after the patient was seen, as this information can be updated by other users. Medical History 37 weeks gestation of Acute otitis media, right Asymmetric IUGR affecting , antepartum Deviated nasal septum Dysmenorrhea Dyspareunia Endometriosis Gestational diabetes mellitus Heartburn during History of ovarian cyst Left ovarian cyst Low back pain Migraine Myalgia Nausea Nausea and vomiting in Pelvic pain Sinusitis Size of fetus inconsistent with dates in third trimester Tobacco use affecting , antepartum Surgical History History of removal of ovarian cyst Status post vaginal delivery Family History Other No significant family history Social History Smoking Status: Current every day smoker tobacco type: cigarettes packs per day: 1 alcohol intake: never substance use type: denies use current occupational status: employed Travel in the last 8 weeks: None housing: house ROS Obtained: Yes All systems reviewed & no additional complaints except as documented Physical Exam General General appearance: alert and in no apparent distress Head Head exam: atraumatic and normocephalic Eye Eye exam: Present normal appearance, PERRL and EOMI ENT ENT exam: Present normal exam, normal oropharynx, mucous membranes moist and normal external ear exam Neck Neck exam: Present normal inspection, full ROM and trachea midline; Absent tenderness Chest Chest inspection: Present normal inspection and symmetric chest wall rise; Absent tenderness Respiratory Respiratory exam: Present normal lung sounds bilaterally; Absent respiratory distress, wheezes, stridor or accessory muscle use Cardiovascular Cardiovascular exam: Present regular rate and normal rhythm Abdominal Exam Abdominal exam: Present soft; Absent distention, tenderness or guarding Extremities Exam Extremities exam: Present normal inspection, full ROM and normal capillary refill; Absent tenderness or edema Back Exam Back exam: Present normal inspection and full ROM; Absent tenderness Neurological Exam Neurological exam: Present alert, oriented X3, CN II-XII intact and normal gait; Absent motor sensory deficit Psychiatric Psychiatric exam: Present normal affect and normal mood Skin Skin exam: Present warm and dry Medical Decision Making Medical Records Medical records reviewed: Yes I reviewed the patient's medical records. Isidro Inquiry Pt receiving controlled substance: No Vital Signs: 03/22/23 14:49 03/22/23 16:39 Temperature 98.2 F 98.9 F Temperature Source Oral Oral Pulse Rate 76 Pulse Rate [Left Radial] 66 Respiratory Rate 15 16 Blood Pressure 120/85 Blood Pressure [Right Arm] 143/72 H Blood Pressure Mean [Right Arm] 95 02 Sat by Pulse Oximetry 95 Oxygen Delivery Method Room Air Room Air Lab Data Lab results reviewed: Yes I reviewed the patient's lab results. Lab Results 03/22/23 15:17: SARS-CoV-2 (PCR) Not detected, Influenza A Untype (PCR) Not detected, Influenza Type B (PCR) Detected A Orders (Tests/Meds): ED MEDICATIONS Discontinued Medications Generic Name Dose Route Start Last Admin Trade Name Freq PRN Reason Stop Dose Admin Acetaminophen 1,000 mg 03/22/23 15:10 03/22/23 15:21 Acetaminophen 500mg Tab PO 03/22/23 15:11 1,000 mg ONCE ONE Administration Ibuprofen 800 mg 03/22/23 15:10 03/22/23 15:22 Ibuprofen 400 Mg Tablet PO 03/22/23 15:11 800 mg ONCE ONE Administration Ondansetron HCl 4 mg 03/22/23 15:10 03/22/23 15:22 Ondansetron 4mg Odt SL 03/22/23 15:11 4 mg ONCE ONE Administration ORDERS Category Date Time Status Rapid PCR Covid and Flu A/B Stat Lab 03/22/23 15:17 Completed Medical Decision Narrative: In summary, this patient is a 27-year-old female presenting to the Emergency Department for evaluation of fevers, chills, cough, congestion, sore throat, nausea, and diarrhea. Differential diagnoses considered include but are not limited to viral syndrome, pneumonia, gastroenteritis, colitis, dehydration. Ruling out the most morbid conditions drove assessment. On exam, the patient is well-appearing in no acute distress with reassuring cardiopulmonary exam. No focal findings on exam to suggest acute bacterial infection. Viral swabs obtained. Patient was given oral Tylenol, ibuprofen, and Zofran for symptomatic improvement. At this time based on reassuring history and exam, feel the patient likely is a viral syndrome and I do not feel that other labs or imaging are indicated. Patient did test positive for the flu. At this time, feel that she is appropriate for discharge with instructions for supportive management. She was given strict return precautions, prescription for Zofran, and she was discharged in stable condition after all questions were answered. Critical Care Critical Care Time Critical Care Time: No
[2023-03-22 16:16] LABS: Influenza B, PCR Detected (NotDetected)
[2023-03-22 16:39] VITALS: BP 120/85; PULSE 76; RESP 16; TEMP 37.2; O2SAT 98
== END 2023-03-22 16:39 | disposition home or self-care (01) ==
LOC: ER 15:29
PROVIDERS: Emergency Provider Emergency Medicine; PCP Physician Assistant
DX: J10.1 Influenza due to other identified influenza virus with other respiratory manifestations (principal); J10.2 Influenza due to other identified influenza virus with gastrointestinal manifestations; R53.1 Weakness; R19.7 Diarrhea, unspecified; R05.9 Cough, unspecified; R09.81 Nasal congestion; F17.210 Nicotine dependence, cigarettes, uncomplicated; R07.0 Pain in throat
CPT/HCPCS: 87636; 99283

== ENCOUNTER 2024-01-27 03:27 | Emergency (ER) | payer MEDICAID, SELFPAY ==
[2024-01-27 03:31] VITALS: BP 131/86; PULSE 99; RESP 20; TEMP 36.4; O2SAT 97; BMI 24.2
[2024-01-27 03:36] VITALS: BP 131/86; PULSE 99; RESP 20; TEMP 36.4; O2SAT 97
[2024-01-27] MEDS: LIDOCAINE 2% 5ML PF VIAL 5 ML IJ (03:42)
--- NOTE | 2024-01-27 03:57 | HMH.EDGENADL ---
Discharge Plan Disposition Patient Disposition: Home, Self-Care Condition: Good Prescriptions Prescriptions: No Action medroxyprogesterone [Depo-Provera] 150 mg/mL suspension 150 mg IM [id number] Qty: 1 2RF Referrals Follow up/Referrals: Audrey Tinoco PA [Primary Care Provider] - See instructions Activity Restrictions/Add. Instructions Additional Instructions/Restrictions: You were evaluated in the ER and are appropriate for discharge at this time. Use the provided ofloxacin eardrops. Place 10 drops in the left ear once daily for 7 days. Lay with the left ear up for 10 minutes after using the drops. Make an appointment with your primary care doctor for reevaluation in a few days. Return to the ER with new, worsening, or otherwise concerning symptoms. Clinical Impressions Clinical Impression: Acute foreign body of left ear canal Qualifiers: Encounter type: initial encounter Qualified Code(s): T16.2XXA - Foreign body in left ear, initial encounter Print Language Print Language: Chinese Discharge ED Provider: Dakota Gr General Adult HPI General Chief complaint: Ear Stated complaint: something in left ear Time Seen by Provider: 01/27/24 03:32 Mode of Arrival: Ambulatory Source of Information: Patient Limitations: No Limitations Description of Symptoms (Recalled from ER Triage Doc. by RN): Pt ambulatory to ED wtih cc of left ear pain. Pt describes the pain as being sharp and fluttering sound. Pt states waking up approx 10 mins ago with left ear pain. History of Present Illness HPI narrative: 28-year-old female presents to the ER with sudden onset left ear pain. She states it is sharp and hears a fluttering sound. She is concerned there is a sharp in her ear because they have roaches in their apartment. Onset of symptoms approximately 10 minutes prior to arrival. She states it woke her up. Patient reports no other complaints or symptoms. Related Data Previous Rx's ?Medication ?Instructions ?Recorded medroxyprogesterone 150 mg/mL 150 mg IM [id number] #1 mL 12/13/22 intramuscular suspension (Depo-Provera) Allergies Allergy/AdvReac Type Severity Reaction Status Date / Time No Known Allergies Allergy Verified 11/06/23 11:31 [facility] Disclaimer: The information contained in this section may have been updated after the patient was seen, as this information can be updated by other users. Medical History 37 weeks gestation of Acute otitis media, right Asymmetric IUGR affecting , antepartum Deviated nasal septum Dysmenorrhea Dyspareunia Endometriosis Gestational diabetes mellitus Heartburn during History of ovarian cyst Left ovarian cyst Low back pain Migraine Myalgia Nausea Nausea and vomiting in Pelvic pain Sinusitis Size of fetus inconsistent with dates in third trimester Tobacco use affecting , antepartum Surgical History History of removal of ovarian cyst Status post vaginal delivery Family History Other No significant family history Social History Smoking Status: Current every day smoker tobacco type: cigarettes packs per day: 1 alcohol intake: never substance use type: denies use current occupational status: employed housing: house Other Medical History Have you received the Flu Vaccine for this season: No Have you received the Pneumonia Vaccine: No ROS Obtained: Yes Systems reviewed as appropriate & no additional complaints except as documented Physical Exam General General appearance: alert and in no apparent distress Head Head exam: atraumatic and normocephalic Eye Eye exam: Present PERRL and EOMI ENT ENT exam: Present mucous membranes moist and other (Live insect present in the left ear canal) Neck Neck exam: Present full ROM Respiratory Respiratory exam: Absent respiratory distress or stridor Cardiovascular Cardiovascular exam: Present regular rate and normal rhythm Extremities Exam Extremities exam: Present full ROM Neurological Exam Neurological exam: Present alert, oriented X3 and normal gait Psychiatric Psychiatric exam: Present normal affect and normal mood Skin Skin exam: Present warm and dry Medical Decision Making Medical Records Screening: Per USPSTF and CDC recommendations, given the prevalence of disease in our region, it is our hospital?s policy to screen for HIV and viral Hepatitis for all patients aged 18 and over and those with ongoing risk factors. Isidro Inquiry Pt receiving controlled substance: No Vital Signs: 01/27/24 03:31 01/27/24 03:36 Temperature 97.5 F L 97.5 F L Temperature Source Oral Oral Pulse Rate 99 H Pulse Rate [Left Radial] 99 H Respiratory Rate 20 20 Blood Pressure 131/86 Blood Pressure [Right Arm] 131/86 Blood Pressure Mean [Right Arm] 101 Blood Pressure Source Automatic Cuff Blood Pressure Source [Right Arm] Automatic Cuff Blood Pressure Position Sitting Blood Pressure Position [Right Arm] Sitting 02 Sat by Pulse Oximetry 97 97 Oxygen Delivery Method Room Air Room Air Orders (Tests/Meds): ED MEDICATIONS Generic Name Dose Route Start Last Admin Trade Name Frejosselyn PRN Reason Stop Dose Admin Ofloxacin 0 ml 01/27/24 09:00 Ofloxacin 0.3% Otic Solution 5ml OT 02/26/24 08:59 BID JOSE DAVID Discontinued Medications Generic Name Dose Route Start Last Admin Trade Name Freq PRN Reason Stop Dose Admin Lidocaine HCl 10 ml 01/27/24 03:37 01/27/24 03:45 Lidocaine 2% 20ml Vial IJ 01/27/24 03:38 Not Given ONCE ONE Lidocaine HCl 5 ml 01/27/24 03:38 01/27/24 03:42 Lidocaine 2% 5ml Pf Vial IJ 01/27/24 03:39 5 ml ONCE ONE Administration Mineral Oil 25 ml 01/27/24 03:35 01/27/24 03:46 Mineral Oil Light Topical (Sterile) 25ml TP 01/27/24 03:36 Not Given ONCE ONE Medical Decision Narrative: In summary, 28-year-old female presents to the ER with pain and a fluttering sensation in her left ear. Differential diagnosis includes but is not limited to otitis media, otitis externa, foreign body, insect in the ear. On evaluation patient is hemodynamically stable, afebrile, overall well-appearing, on otic exam patient has live insect in the left ear canal. Unable to visualize tympanic membrane beyond the insect. After discussion of risks and benefits with the patient including possibility of unsuccessful removal, abrasion or laceration, tympanic membrane injury, injury to hearing, infection, bleeding, pain, but the benefit of insect being absent from the ear patient consented to the procedure. 2% lidocaine was instilled in the left ear to kill the insect. Once it was killed, I attempted to use alligator forceps for removal but this was not successful, I was able to use toothed forceps for successful removal. Bug was removed in 2 pieces. I examined the ear after removal, there was still a single leg from the insect in the ear, tympanic membrane intact with no findings of perforation or other injury, there is a very small abrasion at the posterior aspect of the ear canal that was possibly iatrogenic from the removal process vs from the bug's leg. The ear was irrigated with warm soapy water and the leg flushed out of the ear successfully. Reexamination of the ear demonstrates no further foreign body, small abrasion in the posterior external ear canal is hemostatic. Due to the small abrasion, ofloxacin was administered, these drops were also provided to the patient for outpatient management. Patient was given instructions on symptomatic management, follow up instructions, and return precautions for the emergency department. Patient indicated understanding and was discharged in stable condition. Procedures Risk/Benefits of Procedure(s) Were Explained: Yes (consent provided by patient) Foreign Body Removal Time Out Performed: Yes Site: left and ear Description of foreign body: insect Sedation/Analgesia: none Technique: removal with forceps and other (2% lidocaine instilled into the left ear canal prior to insect removal in order to kill the insect) Confirmed by:: direct visualization Complications: bleeding (Very small abrasion on the posterior external ear canal was noted after removal, potentially iatrogenic, possibly from the bug's leg) Post-procedure exam: awake, alert Neurovascular: no change from pre-procedure Critical Care Critical Care Time Critical Care Time: No
[2024-01-27] MEDS: OFLOXACIN 0.3% OTIC SOLUTION 5ML OT (04:11)
[2024-01-27 04:14] VITALS: BP 123/74; PULSE 69; RESP 20; TEMP 36.4; O2SAT 98
== END 2024-01-27 04:20 | disposition home or self-care (01) ==
PROVIDERS: Emergency Provider Emergency Medicine; PCP Physician Assistant
DX: T16.2XXA Foreign body in left ear, initial encounter (principal); H92.02 Otalgia, left ear; W44.F4XA Insect entering into or through a natural orifice, initial encounter; Y93.89 Activity, other specified; Y92.009 Unspecified place in unspecified non-institutional (private) residence as the place of occurrence of the external cause
CPT/HCPCS: 99282

== ENCOUNTER 2024-02-03 08:39 | Emergency (ER) | payer MEDICAID, SELFPAY ==
[2024-02-03 09:00] VITALS: BP 109/66; PULSE 73; RESP 20; TEMP 36.7; O2SAT 98; BMI 25.7
[2024-02-03 09:22] LABS: UTC Influenza A Antigen Negative (Negative); UTC Influenza B Antigen Negative (Negative)
--- NOTE | 2024-02-03 09:28 | ED_ITS ---
Discharge Plan Disposition Patient Disposition: Home, Self-Care Condition: Good Prescriptions Prescriptions: No Action medroxyprogesterone [Depo-Provera] 150 mg/mL suspension 150 mg IM [id number] Qty: 1 2RF Referrals Follow up/Referrals: Provider,Referral, [Primary Care Provider] - See instructions Activity Restrictions/Add. Instructions Additional Instructions/Restrictions: No sign of a bacterial infection. Likely viral. Viruses can take 7-14 days to run their course. Nasal saline and bulb syringe or nose Cece to remove nasal drainage to help with nasal congestion. Hard to eat, drink, sleep with nasal congestion so important to keep this cleaned out. Monitor temp. Tylenol or Motrin as needed for pain or fever Encourage fluids, water, Gatorade, Powerade, Pedialyte if /toddler/child Warm salt water gargles Warm fluids Sore throat lozenges Sleep elevated Humidifier/vaporizer Follow-up immediately for new or worsening symptoms or no noticeable improvement over the next 48-72 hours. Clinical Impressions Clinical Impression: Upper respiratory infection, viral Instructions Patient Instructions: DI for Viral Upper Respiratory Infection -- Adult Print Language Print Language: Malaysian Discharge ED Provider: Sav ([facility])[place] [facility] [place] General Stated complaint: cough, chills Mode of Arrival: Ambulatory Source of Information: Patient Limitations: No Limitations Time Seen by Provider: 02/03/24 09:04 Description of Symptoms (Recalled from Triage Doc. by RN): PATIENT C/O COUGH, HOT FLASHES, AND RUNNY NOSE X 5 DAYS HEENT Symptoms (Recalled from RN notes): Yes Resp Symptoms (Recalled from RN notes): Yes Skin Symptoms (Recalled from RN notes): No MS Symptoms (Recalled from RN notes): No Functional Status (Recalled from RN notes): WNL History of Present Illness Provider Complaint: 28-year-old female presents for complaints of cough, hot flashes, and runny nose x 5 days. Patient states drainage is clear. Patient states her and child both had the same symptoms. Related Data Previous Rx's ?Medication ?Instructions ?Recorded medroxyprogesterone 150 mg/mL 150 mg IM [id number] #1 mL 12/13/22 intramuscular suspension (Depo-Provera) Allergies Allergy/AdvReac Type Severity Reaction Status Date / Time No Known Allergies Allergy Verified 11/06/23 11:31 Worker's Comp Is this a Worker's Comp case?: No [facility] Disclaimer: The information contained in this section may have been updated after the patient was seen, as this information can be updated by other users. Medical History (Reviewed 02/03/24 @ 09:29 by Jose Carlos Ang ([facility]), [employer]) 37 weeks gestation of Asymmetric IUGR affecting , antepartum Myalgia Nausea Gestational diabetes mellitus Acute otitis media, right Size of fetus inconsistent with dates in third trimester Heartburn during Sinusitis Left ovarian cyst Nausea and vomiting in Tobacco use affecting , antepartum Low back pain Dyspareunia Dysmenorrhea Pelvic pain History of ovarian cyst Endometriosis Deviated nasal septum Migraine Surgical History (Reviewed 02/03/24 @ 09:29 by Jose Carlos Ang ([facility]), [employer]) Status post vaginal delivery History of removal of ovarian cyst Family History (Reviewed 02/03/24 @ 09:29 by Jose Carlos Ang ([facility]), [employer]) No significant family history Social History (Reviewed 02/03/24 @ 09:29 by Jose Carlos Ang ([facility]), [employer]) Smoking Status: Current every day smoker tobacco type: cigarettes packs per day: 1 alcohol intake: never substance use type: denies use current occupational status: employed Travel in the last 8 weeks: None housing: house ROS Obtained: Yes Systems reviewed as appropriate & no additional complaints except as documented Physical Exam General General appearance: alert and in no apparent distress Eye Eye exam: Present normal appearance ENT ENT exam: Present normal exam, normal oropharynx, mucous membranes moist and TM's normal bilaterally Respiratory Respiratory exam: Present normal lung sounds bilaterally Cardiovascular Cardiovascular exam: Present regular rate and normal rhythm Neurological Exam Neurological exam: Present alert and oriented X3 Skin Skin exam: Present warm and intact Medical Decision Making Medical Records Medical records reviewed: Yes I reviewed the patient's medical records. Screening: Per USPSTF and CDC recommendations, given the prevalence of disease in our region, it is our hospital?s policy to screen for HIV and viral Hepatitis for all patients aged 18 and over and those with ongoing risk factors. Isidro Inquiry Pt receiving controlled substance: No Vital Signs: 02/03/24 09:00 Temperature 98.1 F Temperature Source Oral Pulse Rate [Left Brachial] 73 Respiratory Rate 20 Blood Pressure [Left Arm] 109/66 L Blood Pressure Mean [Left Arm] 80 Blood Pressure Source [Left Arm] Automatic Cuff Blood Pressure Position [Left Arm] Sitting 02 Sat by Pulse Oximetry 98 Oxygen Delivery Method Room Air Lab Data Lab results reviewed: Yes I reviewed the patient's lab results. Lab Results 02/03/24 09:01: Influenza Type A Ag Negative, Influenza Type B Ag Negative Orders (Tests/Meds): ORDERS Category Date Time Status Covid-19 Nasal PCR ([facility]) Routine Lab 02/03/24 09:26 Ordered
[2024-02-03 09:34] VITALS: BP 109/66; PULSE 73; RESP 20; TEMP 36.7; O2SAT 98
== END 2024-02-03 09:42 | disposition home or self-care (01) ==
PROVIDERS: Emergency Provider Nurse Practitioner Family
DX: J06.9 Acute upper respiratory infection, unspecified (principal)
CPT/HCPCS: 87635; 87804; 99213; G0381

== ENCOUNTER 2024-02-07 08:08 | Emergency (ER) | payer MEDICAID, SELFPAY ==
--- NOTE | 2024-02-07 08:10 | HMH.EDGENADL ---
Discharge Plan Disposition Patient Disposition: Eloped Chief Complaint: Upper Respiratory Infection Prescriptions Prescriptions: No Action medroxyprogesterone [Depo-Provera] 150 mg/mL suspension 150 mg IM [id number] Qty: 1 2RF Referrals Follow up/Referrals: Provider,Referral, MD [Primary Care Provider] - See instructions Clinical Impressions Clinical Impression: Eloped from emergency department Print Language Print Language: Maori Discharge ED Provider: Augusto Gonsalez General Adult HPI General Chief complaint: Upper Respiratory Infection Stated complaint: cough, vomiting, sinus drainage, body aches Time Seen by Provider: 02/07/24 08:10 History of Present Illness HPI narrative: Patient presents with cough, shortness of breath, in the absence of chest pain, with associated wheezing, nausea, symptoms were gradual in onset starting over the past several days, constant, stable in course, no previous therapies. Patient has not had similar symptoms before. No leg pain or leg swelling. No hemoptysis. No syncope or presyncope. No fevers or chills Please note that above description of symptoms, in this electronic medical record under categorization of recalled from ER triage doctor by RN are reflective of an initial nursing assessment, however, is not reflective of my full history and physical exam that was personally taken and clarified. Consequentially, this preceding description of symptoms, which may include the patient's categorized chief complaint in the EMR, do not reflect my personal clinical impression, and the ultimate description of history of present illness and patient stated complaints should be deferred to this section of the note. Unless stated otherwise or congruent with this section of the note, additional signs, symptoms, or incongruence should be interpreted as inaccurate with my clinical impression. Related Data Previous Rx's ?Medication ?Instructions ?Recorded medroxyprogesterone 150 mg/mL 150 mg IM [id number] #1 mL 12/13/22 intramuscular suspension (Depo-Provera) Allergies Allergy/AdvReac Type Severity Reaction Status Date / Time No Known Allergies Allergy Verified 11/06/23 11:31 [facility] Disclaimer: The information contained in this section may have been updated after the patient was seen, as this information can be updated by other users. Medical History , DATA ENTRY ANALYST) 37 weeks gestation of Asymmetric IUGR affecting , antepartum Myalgia Nausea Gestational diabetes mellitus Acute otitis media, right Size of fetus inconsistent with dates in third trimester Heartburn during Sinusitis Left ovarian cyst Nausea and vomiting in Tobacco use affecting , antepartum Low back pain Dyspareunia Dysmenorrhea Pelvic pain History of ovarian cyst Endometriosis Deviated nasal septum Migraine Surgical History , DATA ENTRY ANALYST) Status post vaginal delivery History of removal of ovarian cyst Family History , DATA ENTRY ANALYST) No significant family history Social History , DATA ENTRY ANALYST) Smoking Status: Current every day smoker tobacco type: cigarettes packs per day: 1 alcohol intake: never substance use type: denies use current occupational status: employed Travel in the last 8 weeks: None housing: house Have you lived/traveled outside [place] in past 30 days?: No Contact w/someone who lives/traveled outside US past 30 days?: No Exposure to someone with infectious disease in past 14 days?: Yes Do you have a fever (greater than 100.4 F or 38 C)?: No Have you tested positive for COVID-19: No Exposed to someone with COVID-19 in past 14 days?: No Do you have a sore throat?: No Do you have a cough?: Yes Do you have any weakness?: Yes Do you have any diarrhea?: No Are you experiencing any unusual bleeding?: No Do you have any muscle aches/pain?: Yes Do you have any abdominal pain?: No Are you experiencing loss of taste or smell?: No Other Medical History Have you received the Flu Vaccine for this season: No Have you received the Pneumonia Vaccine: No ROS Obtained: Yes other As per HPI Physical Exam General General appearance: alert and in no apparent distress Head Head exam: atraumatic and normocephalic Eye Eye exam: Present normal appearance Neck Neck exam: Present normal inspection Chest Chest inspection: Present normal inspection and symmetric chest wall rise Respiratory Respiratory exam: Present normal lung sounds bilaterally; Absent respiratory distress Cardiovascular Cardiovascular exam: Present regular rate and normal rhythm Abdominal Exam Abdominal exam: Present soft Neurological Exam Neurological exam: Present alert and oriented X3 Psychiatric Psychiatric exam: Present normal affect and normal mood Skin Skin exam: Present warm and dry Medical Decision Making Medical Records Medical records reviewed: Yes I reviewed the patient's medical records. Screening: Per USPSTF and CDC recommendations, given the prevalence of disease in our region, it is our hospital?s policy to screen for HIV and viral Hepatitis for all patients aged 18 and over and those with ongoing risk factors. Isidro Inquiry Pt receiving controlled substance: No Vital Signs: 02/07/24 08:17 02/07/24 08:30 02/07/24 09:00 Temperature 97.8 F Temperature Source Oral Pulse Rate 95 H 74 Pulse Rate [Right Radial] 88 Respiratory Rate 18 Blood Pressure 131/46 L 98/49 L Blood Pressure [Right Arm] 118/74 Blood Pressure Mean [Right Arm] 88 02 Sat by Pulse Oximetry 97 99 100 Oxygen Delivery Method Room Air Room Air Room Air 02/07/24 09:15 02/07/24 10:31 Temperature 97.8 F Temperature Source Pulse Rate 84 88 Pulse Rate [Right Radial] Respiratory Rate 18 Blood Pressure 94/71 L 118/74 Blood Pressure [Right Arm] Blood Pressure Mean [Right Arm] 02 Sat by Pulse Oximetry 100 Oxygen Delivery Method Room Air Orders (Tests/Meds): ED MEDICATIONS Discontinued Medications Generic Name Dose Route Start Last Admin Trade Name Freq PRN Reason Stop Dose Admin Albuterol Sulfate 4 puff 02/07/24 08:41 Albuterol-Hfa 90mcg/Puff Inhaler 8gm IH 02/07/24 08:42 ONCE ONE Dexamethasone 10 mg 02/07/24 08:41 02/07/24 08:54 Dexamethasone 4mg Tablet PO 02/07/24 08:42 10 mg ONCE ONE Administration Ketorolac Tromethamine 15 mg 02/07/24 08:41 02/07/24 08:51 Ketorolac 30mg/Ml Vial IM 02/07/24 08:42 15 mg ONCE ONE Administration Miscellaneous 1 unit 02/07/24 08:41 Aerochamber/Optihaler MC 02/07/24 08:42 ONCE ONE Ondansetron HCl 4 mg 02/07/24 08:41 02/07/24 08:53 Ondansetron 4mg Odt SL 02/07/24 08:42 4 mg ONCE ONE Administration ORDERS Category Date Time Status XR chest 2V Stat Exams 02/07/24 08:42 Completed Medical Decision Narrative: Patient with history and exam per above presenting for evaluation of dyspnea, upper respiratory infectious symptoms Diagnoses considered include pneumonia, COPD, reactive airway disease, low clinical index of suspicion for ACS, PE, no further workup is indicated at this time for these etiologies ED workup and treatment included: ED MEDICATIONS Discontinued Medications Generic Name Dose Route Start Last Admin Trade Name Freq PRN Reason Stop Dose Admin Albuterol Sulfate 4 puff 02/07/24 08:41 Albuterol-Hfa 90mcg/Puff Inhaler 8gm IH 02/07/24 08:42 ONCE ONE Dexamethasone 10 mg 02/07/24 08:41 02/07/24 08:54 Dexamethasone 4mg Tablet PO 02/07/24 08:42 10 mg ONCE ONE Administration Ketorolac Tromethamine 15 mg 02/07/24 08:41 02/07/24 08:51 Ketorolac 30mg/Ml Vial IM 02/07/24 08:42 15 mg ONCE ONE Administration Miscellaneous 1 unit 02/07/24 08:41 Aerochamber/Optihaler MC 02/07/24 08:42 ONCE ONE Ondansetron HCl 4 mg 02/07/24 08:41 02/07/24 08:53 Ondansetron 4mg Odt SL 02/07/24 08:42 4 mg ONCE ONE Administration ORDERS Category Date Time Status XR chest 2V Stat Exams 02/07/24 08:42 Completed Patient eloped from the emergency department prior to completion of workup Critical Care Critical Care Time Critical Care Time: No
[2024-02-07 08:17] VITALS: BP 118/74; PULSE 88; RESP 18; TEMP 36.6; O2SAT 97; BMI 24.2
[2024-02-07 08:30] VITALS: BP 131/46; PULSE 95; O2SAT 99
--- NOTE | 2024-02-07 08:42 | XR_ITS ---
FINAL REPORT CLINICAL HISTORY: cough, shortness of breath, preceding URI, smoker x 5 yrs COMPARISON: 12/15/2021 FINDINGS: Two views of the chest were obtained. The heart size and pulmonary vascularity are within normal limits. The mediastinum is normal. No acute pulmonary abnormality is identified. There is no pneumothorax. The bony thorax is intact. IMPRESSION: No active cardiopulmonary disease. Reviewed, Interpreted and Dictated by Geoffrey Castillo III, MD Transcribed by Sophie Gonzales Authenticated and [facility]
[2024-02-07] MEDS: KETOROLAC 30MG/ML VIAL 15 MG IM (08:51)
[2024-02-07] MEDS: ONDANSETRON 4MG ODT 4 MG SL (08:53)
[2024-02-07] MEDS: DEXAMETHASONE 4MG TABLET 10 MG PO (08:54)
[2024-02-07 09:00] VITALS: BP 98/49; PULSE 74; O2SAT 100
[2024-02-07 09:15] VITALS: BP 94/71; PULSE 84; O2SAT 100
[2024-02-07 10:31] VITALS: BP 118/74; PULSE 88; RESP 18; TEMP 36.6
== END 2024-02-07 10:37 | disposition left against medical advice (07) ==
PROVIDERS: Emergency Provider Emergency Medicine
DX: R05.9 Cough, unspecified (principal); R06.02 Shortness of breath; R06.2 Wheezing; R11.0 Nausea; Z53.20 Procedure and treatment not carried out because of patient's decision for unspecified reasons
CPT/HCPCS: 71046; 96372; 99283; J1885; J8540; Q0162

== ENCOUNTER 2024-11-09 15:09 | Emergency (ER) | payer SELFPAY ==
[2024-11-09 15:15] VITALS: BP 122/71; PULSE 66; RESP 18; TEMP 36.8; O2SAT 99; BMI 24.2
--- OUTSIDE RECORDS SUMMARY | 2024-11-09 15:15 | XMS_ITS | Clinical Summary ---
[facility] Organization [facility] Address [address] [place] [address] Care Team Providers Care Biology Tutor Name Role Phone Provider, No Known Primary Care Provider Unavail able Allergies No known active allergies Medications Vit-Fe Fumarate-FA ( vitamin 27-0.8) 27-0.8 MG tablet tablet Take by mouth Daily. Active Active Problems Problem Noted Date Diagnosed Date 10/19/2022 Diet controlled gestational diabetes mellitus (GDM) in third trimester 10/19/2022 Uterine size-date discrepancy in third trimester 10/19/2022 23 weeks gestation of 08/22/2022 Social History Tobacco Use Types Packs/Day Years Used Date Smoking Tobacco: Every Day Cigarettes Smokeless Tobacco: Never Tobacco Cessation:Ready to Q uit: Not Asked; Counseling Given: Not Answered Alcohol Use Standard Drinks/Week Comments Never 0 (1 standard drink = 0.6 oz pur e alcohol) Abuse Screen Answer Date Recorded Unsafe at Home or Work/School Not on file Feels Threatened by Someone? Not on file Does Anyone Keep You from Co ntacting Others or Doint Things Outside the Home? Not on file 12/08/2022 Physical Sign of Abuse Present Not on file 1 Housing Stability Answer Date Recorded Current Living Arrangements Not on file 11/26 Potentially Unsafe Housing Conditions Not on cynthia e 12/08/2022 Family and Community Support Answer Levar e Recorded Help with Day-to-Day Activities Not on file 12/08/2022 Lonely or Isolated Not on file 12/08/2022 Employment Answer Date Recorded Do you want help finding or keeping work or a kath b? Not on file 12/08/2022 Disabilities Answer Date Recorded Concentrating, Remembering, or Making Decisions Difficulty Not on file 12/08/2022 Doing Errands Independently Difficulty Not on fi le 12/08/2022 Education Answer Date Recorded Help with school or training? Not on file Preferred Language Not on file 12/08/2022 Comments No Sex and Gender Information Value Date Recorded Sex Assigned at Not on file Legal Sex Female 4:02 PM EDT Gender Identity Not on file Sexual Orientation Not on file Last Filed Vital Signs Vital Sign Reading Time Taken Comments Blood Pressure 106/73 11/16/2022 12:44 PM EDT Pulse - - Temperature - - Respiratory Rate - - Oxygen Saturation - - Inhaled Oxygen Concentration - - Weight 63.5 kg (140 lb) 11/16/2022 12:44 PM EDT Height 152.4 cm (5') 08/22/2022 11:33 AM EDT Body Mass Index 27.34 08/22/2022 11:33 AM EDT Plan of Treatment Health Maintenance Due Date Last Done Comments Annual Gynecologic Pelvic and Breast Exam 1997 HPV VACCINES (1 - 3-dose series) 2012 Pneumococcal Vaccine 0-49 (1 of 2 - PCV) 2016 TDAP/TD VACCINES (2 - Td or Tdap) 11/23/2019 010 ANNUAL PHYSICAL 08/22/2022 HEPATITIS C SCREENING 08/22/2022 COVID-19 Vaccine ( season) 2024 INFLUENZA VACCINE 11/26/2024 12/28/2015 Insurance [employer] Care Teams Biology Tutor Relationship Specialty Start Date End Date Provider, [place] [address] PCP - General 08/15/22
--- NOTE | 2024-11-09 15:29 | ED_ITS ---
Discharge Plan Disposition Patient Disposition: Home, Self-Care Prescriptions Prescriptions: New amoxicillin 500 mg tablet 1,000 mg PO TID 7 Days Qty: 42 0RF No Action Twirla 120-30 mcg/24 hr patch weekly 1 patch transdermal WEEKLY Qty: 3 3RF Rx Instructions: apply once weekly for 3 weeks of a 4-week cycle Referrals Follow up/Referrals: Audrey Tinoco PA [Primary Care Provider, Medical] - See instructions Activity Restrictions/Add. Instructions Additional Instructions/Restrictions: At this time it was felt you are safe to be discharged home. If new or worsening symptoms please do not hesitate to return the emergency department. Please take your medication as prescribed. Clinical Impressions Clinical Impression: Otitis media Print Language Print Language: Malay Discharge ED Provider: Milind Allen General Adult HPI General Stated complaint: both ears hurt Time Seen by Provider: 11/09/24 15:10 History of Present Illness HPI narrative: Patient is 28-year-old female with no pertinent past medical history presents emergency department for evaluation of ear pain. She originally had nasal congestion and left-sided ear pain over the last few days which has resolved however over the last 24 hours she has pain that started in her right ear now. She is not allergic to any medications has not had any head neck surgery no other acute complaints at this time. Please note that above description of symptoms, in this electronic medical record under categorization of recalled from ER triage doctor by RN are reflective of an initial nursing assessment, however, is not reflective of my full history and physical exam that was personally taken and clarified. Con sequentially, this preceding description of symptoms, which may include the patient's categorized chief complaint in the EMR, do not reflect my personal clinical impression, and the ultimate description of history of present illness and patient stated complaints should be deferred to this section of the note. Unless stated otherwise or congruent with this section of the note, additional signs, symptoms, or incongruence should be interpreted as inaccurate with my clinical impression. Related Data Previous Rx's ?Medication ?Instructions ?Recorded levonorgestrel 120 mcg-e.estradiol 1 patch transdermal WEEKLY #3 04/15/24 30 mcg/24 hr weekly transderm patches patch (Twirla) amoxicillin 500 mg tablet 1,000 mg (2 x 500 mg) PO TID 11/09/24 otitis media 7 days #42 tabs Allergies Allergy/AdvReac Type Severity Reaction Status Date / Time No Known Allergies Allergy Verified 04/15/24 15:16 [facility] Disclaimer: The information contained in this section may have been updated after the patient was seen, as this information can be updated by other users. Medical History (Updated 11/09/24 @ 15:24 by Milind Allen MD) Abnormal uterine bleeding 37 weeks gestation of Asymmetric IUGR affecting , antepartum Myalgia Nausea Gestational diabetes mellitus Acute otitis media, right Size of fetus inconsistent with dates in third trimester Heartburn during Sinusitis Left ovarian cyst Nausea and vomiting in Tobacco use affecting , antepartum Low back pain Dyspareunia Dysmenorrhea Pelvic pain History of ovarian cyst Endometriosis Deviated nasal septum Migraine Surgical History Status post vaginal delivery History of removal of ovarian cyst Family History Other No significant family history Social History Smoking Status: Current every day smoker tobacco type: cigarettes packs per day: 1 alcohol intake: never substance use type: denies use current occupational status: employed Travel in the last 8 weeks?: None housing: house Have you lived/traveled outside US in past 30 days?: No Contact w/someone who lives/traveled outside US past 30 days?: No Exposure to someone with infectious disease in past 14 days?: No Do you have a fever (greater than 100.4 F or 38 C)?: No Have you tested positive for COVID-19?: No Exposed to someone with COVID-19 in past 14 days?: No Do you have a sore throat?: No Do you have a cough?: No Do you have any weakness?: No Do you have any diarrhea?: No Are you experiencing any unusual bleeding?: No Do you have any muscle aches/pain?: No Do you have any abdominal pain?: No Are you experiencing loss of taste or smell?: No Other Medical History Have you received the Flu Vaccine for this season: No Have you received the Pneumonia Vaccine: No ROS Obtained: Yes Systems reviewed as appropriate & no additional complaints except as documented Physical Exam General General appearance: alert and in no apparent distress Head Head exam: atraumatic and normocephalic Eye Eye exam: Present PERRL and EOMI ENT ENT exam: Present mucous membranes moist and other (No retroauricular swelling or erythema no anterior effacement of the pinna); Absent TM's normal bilaterally (Purulent middle ear effusion right) Neck Neck exam: Present normal inspection Chest Chest inspection: Present normal inspection and symmetric chest wall rise Respiratory Respiratory exam: Absent respiratory distress Cardiovascular Cardiovascular exam: Present regular rate and normal rhythm Extremities Exam Extremities exam: Present normal inspection Neurological Exam Neurological exam: Present alert Psychiatric Psychiatric exam: Present normal affect Skin Skin exam: Present warm and dry Medical Decision Making Medical Records Screening: Per USPSTF and CDC recommendations, given the prevalence of disease in our region, it is our hospital?s policy to screen for HIV and viral Hepatitis for all patients aged 18 and over and those with ongoing risk factors. Isidro Inquiry Pt receiving controlled substance: No Medical Decision Narrative: In summary patient is 28-year-old female past medical history of scrota above presents Emergency Department for evaluation of ear pain. Patient is hemodynamically stable nontoxic-appearing upon arrival, afebrile. Clinically patient has otitis media on the right which will be treated outpatient with amoxicillin. She does not have any signs on physical exam concerning for mastoiditis therefore workup with labs and imaging was considered but will be deferred. Patient is appropriate for discharge at this time was given return precautions. Senior Informatic[employer] Developer disclaimer Much of this encounter note is an electronic carrier blower spoken language to printed text. Electronic carrier blower of the spoken language may permit errors. Although I have reviewed the note, some errors may still exist. Critical Care Critical Care Time Critical Care Time: No
[2024-11-09 15:31] VITALS: BP 122/71; PULSE 66; RESP 18; TEMP 36.8; O2SAT 99
== END 2024-11-09 15:31 | disposition home or self-care (01) ==
PROVIDERS: Emergency Provider Emergency Medicine; PCP Physician Assistant
DX: H66.90 Otitis media, unspecified, unspecified ear (principal)
CPT/HCPCS: 99283

== ENCOUNTER 2024-12-29 14:12 | Emergency (ER) | payer SELFPAY ==
[2024-12-29 14:19] VITALS: BP 127/77; PULSE 84; RESP 18; TEMP 36.6; O2SAT 98; BMI 23.4
--- OUTSIDE RECORDS SUMMARY | 2024-12-29 14:40 | XMS_ITS | Clinical Summary ---
[facility] Organization [facility] Address [address] [place] [address] Care Team Providers Care Proced Tech Name Role Phone Provider, No Known Primary [...] Annual Gynecologic Pelvic and Breast Exam 1997 Pneumococcal Vaccine 0-49 (1 of 2 - PCV) 2016 TDAP/TD VACCINES (2 - Td or Tdap) 11/23/2019 010 ANNUAL PHYSICAL 08/22/2022 HEPATITIS C SCREENING 08/22/2022 INFLUENZA VACCINE 09/26/2024 12/28/2015 Insurance [facility] [place] [address] [place] [address] [employer] Care Teams Proced Tech Relationship Specialty Start Date End Date Provider, [place] [address] PCP - General 08/15/22
--- NOTE | 2024-12-29 14:50 | ED_ITS ---
<Statement entered by Francisco Moraes MD - 12/29/24 22:23> I was consulted by the ANNABELLE, and we discussed the complexity of the problems being addressed. I approve the treatment and management plan for this patient's care in the emergency department, thus performing a substantive portion of the medical decision making. Francisco Moraes MD Discharge Plan Disposition Chief Complaint: Headache Prescriptions Prescriptions: No Action Twirla 120-30 mcg/24 hr patch weekly 1 patch transdermal WEEKLY Qty: 3 3RF Rx Instructions: apply once weekly for 3 weeks of a 4-week cycle amoxicillin 500 mg tablet 1,000 mg PO TID 7 Days Qty: 42 0RF Referrals Follow up/Referrals: Audrey Tinoco PA [Primary Care Provider, Medical] - See instructions Print Language Print Language: Luxembourgish Discharge ED Provider: Henrik Velazquez Adult HPI General Chief complaint: Headache Stated complaint: vomiting, headache, dizziness Time Seen by Provider: 12/29/24 14:37 Mode of Arrival: Wheelchair Source of Information: Patient Description of Symptoms (Recalled from ER Triage Doc. by RN): Pt stated she had a migraine start about an hour ago. The migraine has caused horrible N/V. Pt states she can't look at lights without puking. Pt has a history of migraines usually treated with ibuprofen or tylenol. History of Present Illness HPI narrative: 29-year-old female presents today for complaint of migraine with light sensitivity and sound sensitivity. Patient is vomiting currently. Patient states that she has been throwing up for about 3 hours. She does have history of migraines and usually takes ibuprofen and Tylenol. When she comes to the ED she usually gets IV fluids and migraine cocktail. Related Data Previous Rx's ?Medication ?Instructions ?Recorded levonorgestrel 120 mcg-e.estradiol 1 patch transdermal WEEKLY #3 04/15/24 30 mcg/24 hr weekly transderm patches patch (Twirla) amoxicillin 500 mg tablet 1,000 mg (2 x 500 mg) PO TID 11/09/24 otitis media 7 days #42 tabs Allergies Allergy/AdvReac Type Severity Reaction Status Date / Time No Known Allergies Allergy Verified 04/15/24 15:16 [facility] Disclaimer: The information contained in this section may have been updated after the patient was seen, as this information can be updated by other users. Medical History (Updated 11/09/24 @ 15:24 by Milind Allen MD) Abnormal uterine bleeding 37 weeks gestation of Asymmetric IUGR affecting , antepartum Myalgia Nausea Gestational diabetes mellitus Acute otitis media, right Size of fetus inconsistent with dates in third trimester Heartburn during Sinusitis Left ovarian cyst Nausea and vomiting in Tobacco use affecting , antepartum Low back pain Dyspareunia Dysmenorrhea Pelvic pain History of ovarian cyst Endometriosis Deviated nasal septum Migraine Surgical History Status post vaginal delivery History of removal of ovarian cyst Family History Other No significant family history Social History Smoking Status: Current every day smoker tobacco type: cigarettes packs per day: 1 alcohol intake: never substance use type: denies use current occupational status: employed Travel in the last 8 weeks?: None housing: house Have you lived/traveled outside US in past 30 days?: No Contact w/someone who lives/traveled outside US past 30 days?: No Exposure to someone with infectious disease in past 14 days?: No Do you have a fever (greater than 100.4 F or 38 C)?: No Have you tested positive for COVID-19?: No Exposed to someone with COVID-19 in past 14 days?: No Do you have a sore throat?: No Do you have a cough?: No Do you have any weakness?: No Do you have any diarrhea?: No Are you experiencing any unusual bleeding?: No Do you have any muscle aches/pain?: No Do you have any abdominal pain?: No Are you experiencing loss of taste or smell?: No Other Medical History Have you received the Flu Vaccine for this season: No Have you received the Pneumonia Vaccine: No ROS Obtained: Yes Systems reviewed as appropriate & no additional complaints except as documented Constitutional Constitutional: Reports as per HPI Physical Exam General General appearance: alert and in distress Comment: Currently vomiting Head Head exam: atraumatic and normocephalic Eye Eye exam: Present PERRL and EOMI ENT ENT exam: Present normal oropharynx and mucous membranes moist Neck Neck exam: Present full ROM and trachea midline Respiratory Respiratory exam: Present normal lung sounds bilaterally Cardiovascular Cardiovascular exam: Present regular rate, normal rhythm, normal heart sounds, +S1 and +S2 Abdominal Exam Abdominal exam: Present soft and normal bowel sounds Extremities Exam Extremities exam: Present full ROM and normal capillary refill Neurological Exam Neurological exam: Present alert and oriented X3 Skin Skin exam: Present warm and dry Medical Decision Making Medical Records Screening: Per USPSTF and CDC recommendations, given the prevalence of disease in our region, it is our hospital?s policy to screen for HIV and viral Hepatitis for all patients aged 18 and over and those with ongoing risk factors. Isidro Inquiry Pt receiving controlled substance: No Isidro was queried for this patient: No Vital Signs: 12/29/24 14:19 Temperature 97.9 F Temperature Source Oral Pulse Rate [Right] 84 Respiratory Rate 18 Blood Pressure [Right Arm] 127/77 Blood Pressure Mean [Right Arm] 93 Blood Pressure Source [Right Arm] Automatic Cuff Blood Pressure Position [Right Arm] Sitting 02 Sat by Pulse Oximetry 98 Oxygen Delivery Method Room Air Lab Data Lab Results 12/29/24 14:43: WBC 13.4 H, RBC 4.21, Hgb 12.7, Hct 37.6, MCV 89.3, MCH 30.2, MCHC 33.8, RDW 13.1, Plt Count 385, MPV 9.8, Neut % (Auto) 71.6, Lymph % (Auto) 21.8, [place] % (Auto) 5.4, Eos % (Auto) 0.6, Baso % (Auto) 0.3, Neut # (Auto) 9.6 H, Lymph # (Auto) 2.9, [place] # (Auto) 0.7, Eos # (Auto) 0.1, Baso # (Auto) 0.0, Sodium 137, Potassium 3.4 L, Chloride 105, Carbon Dioxide 27, Anion Gap 8.4, BUN 8, Creatinine 0.80, Estimated Creat Clear 91, Estimated GFR 86, Est GFR ( Amer) 104, Glucose 102 H, Calcium 9.0, Magnesium 1.8, Total Bilirubin 0.5, AST 25, ALT 33, Alkaline Phosphatase 74, Total Protein 7.2, Albumin 4.1, Globulin 3.1, Albumin/Globulin Ratio 1.3, Lipase 59 12/29/24 14:44: SARS-CoV-2 (PCR) Not detected, Influenza A Untype (PCR) Not detected, Influenza Type B (PCR) Not detected 12/29/24 15:28: Urine Color Yellow, Urine Appearance Clear, Urine pH 7.5, Ur Specific Gobles 1.020, Urine Protein Negative, Urine Glucose (UA) Negative, Urine Ketones Negative, Urine Blood Negative, Urine Nitrate Negative, Urine Bilirubin Negative, Urine Urobilinogen 0.2, Ur Leukocyte Esterase Negative 12/29/24 14:43 12/29/24 14:43 Orders (Tests/Meds): ED MEDICATIONS Discontinued Medications Generic Name Dose Route Start Last Admin Trade Name Freq PRN Reason Stop Dose Admin Acetaminophen 1,000 mg 12/29/24 14:39 12/29/24 15:05 Acetaminophen 1,000mg/100ml Vial IV 12/29/24 14:40 1,000 mg ONCE ONE Administration Dexamethasone Sodium Phosphate 8 mg 12/29/24 14:39 12/29/24 15:05 Dexamethasone 4mg/Ml 1ml Vial IV 12/29/24 14:40 8 mg ONCE ONE Administration Diphenhydramine HCl 25 mg 12/29/24 14:39 12/29/24 15:05 Diphenhydramine 50mg/Ml Vial IV 12/29/24 14:40 25 mg ONCE ONE Administration Sodium Chloride 1,000 mls @ 999 mls/hr 12/29/24 14:39 12/29/24 16:05 Sod Chlor 0.9% 1000ml Bag IV 12/29/24 15:39 Infused .Q1H1M ONE Infusion Ketorolac Tromethamine 30 mg 12/29/24 14:40 12/29/24 15:06 Ketorolac 30mg/Ml Vial IV 12/29/24 14:41 30 mg ONCE ONE Administration Prochlorperazine Edisylate 5 mg 12/29/24 14:39 12/29/24 15:06 Prochlorperazine 10mg/2ml Vial IV 12/29/24 14:40 5 mg ONCE ONE Administration ORDERS Category Date Time Status CBC [Complete Blood Count Auto Diff] Stat Lab 12/29/24 14:43 Completed Comprehensive Metabolic Panel Stat Lab 12/29/24 14:43 Completed Lipase Stat Lab 12/29/24 14:43 Completed Magnesium Stat Lab 12/29/24 14:43 Completed Rapid PCR Covid and Flu A/B Stat Lab 12/29/24 14:44 Completed UA [Urinalysis and Microscopic] Stat Lab 12/29/24 15:28 Results Medical Decision Narrative: patient is a 29-year-old female presenting to the emergency department for evaluation of migraine, nausea and vomiting. Patient is hemodynamically stable and nontoxic-appearing upon arrival, afebrile. Differential diagnosis includes migraine, headache. Workup will be conducted with hematologic labs, specific imaging, provocative tests. Initial inventions include crystalloid bolus, analgesics. Initial workup reviewed by me hematologic labs are remarkable forWhite count 13.4, potassium was 3.4 but patient not handling p.o. at the time so we will send patient home on potassium replacement. Patient liver and kidney function fine, urine was normal. Imaging was considered but not necessary as this patient has normal migraines this 1 just got out of control. Patient is safe for discharge home as she does feel much improved. Critical Care Critical Care Time Critical Care Time: No
[2024-12-29 14:51] LABS: Coronavirus 19, PCR Not Detected (NotDetected); Influenza A, PCR Not Detected (NotDetected); Influenza B, PCR Not Detected (NotDetected)
[2024-12-29 14:57] LABS: Hematocrit 37.6 % (37.0-47.0); Hemoglobin 12.7 g/dL (12.2-16.2); Immature Granulocytes % 0.3 %; Mean Corpuscular HGB Conc 33.8 g/dL (31.8-35.4); Mean Corpuscular Hemoglobin 30.2 pg (27.0-31.2); Mean Corpuscular Volume 89.3 fl (81-99); Nucleated Red Blood Cells % 0 %; Platelet Count 385 K/mm3 (142-424); Red Blood Count 4.21 M/mm3 (4.20-5.40); Red Cell Distribution Width-SD 42.7 fL; White Blood Count 13.4 K/mm3 (4.8-10.8)
[2024-12-29] MEDS: 0.9 % SODIUM CHLORIDE 1000ML 1,000 ML 999 ML IV (15:04)
[2024-12-29] MEDS: DEXAMETHASONE 4MG/ML 1ML VIAL 8 MG IV (15:05)
[2024-12-29] MEDS: ACETAMINOPHEN 1,000MG/100ML VIAL 1000 MG IV (15:05)
[2024-12-29 15:06] LABS: Alanine Aminotransferase 33 U/L (12-78); Albumin Level 4.1 g/dl (3.5-5.0); Albumin/Globulin Ratio 1.3 (1.1-1.8); Alkaline Phosphatase 74 U/L (38-126); Anion Gap 8.4 mEq/L (5-15); Aspartate Amino Transferase 25 U/L (14-36); Bilirubin,Total 0.5 mg/dl (0.2-1.3); Blood Urea Nitrogen 8 mg/dl (7-17); Calcium 9.0 mg/dl (8.4-10.2); Carbon Dioxide 27 mmol/L (22.0-30.0); Chloride 105 mmol/L (98-107); Creatinine Clearance Estimated 91 mL/min (50-200); Creatinine,Serum 0.80 mg/dl (0.52-1.04); Estimated Glomerular Filt Rate 86 ml/min (>60); GFR (African American) 104 ML/MIN (>60); Globulin 3.1 g/dL (1.3-3.2); Glucose 102 mg/dl (74-100); Lipase 59 U/L (23-300); Magnesium 1.8 mg/dl (1.6-2.3); Potassium 3.4 mmoL/L (3.5-5.1); Sodium 137 mmol/L (136-145); Total Protein,Serum 7.2 g/dl (6.3-8.2)
[2024-12-29] MEDS: PROCHLORPERAZINE 10MG/2ML VIAL 5 MG IV (15:06)
[2024-12-29] MEDS: KETOROLAC 30MG/ML VIAL 30 MG IV (15:06)
[2024-12-29 15:35] LABS: Microscopic, Urine URINE MICROSCOPIC (MICROSCOPIC)
[2024-12-29 16:32] LABS: Bilirubin,Urine Negative (Negative); Color,Urine YELLOW (Yellow); Glucose,Urine (UA) Negative (Negative); Ketones,Urine Negative (Negative); Leukocyte Esterase,Urine Negative (Negative); PH,Urine 7.5 (5.0-8.5); Protein,Urine Negative (Negative); Specific Gravity, Urine 1.020 (1.005-1.030); Urobilinogen,Urine 0.2 EU/dl (0.2)
[2024-12-29 16:58] LABS: Bacteria,Urine 2+ /lpf; RBC,Urine Occasional #/hpf (0-3)
[2024-12-29 17:01] VITALS: BP 132/68; PULSE 80; RESP 18; TEMP 36.6; O2SAT 98
== END 2024-12-29 17:02 | disposition home or self-care (01) ==
PROVIDERS: Nurse Practitioner; Emergency Provider Student in an Organized Health Care Education/Training Program; PCP Physician Assistant
DX: G43.909 Migraine, unspecified, not intractable, without status migrainosus (principal); R11.2 Nausea with vomiting, unspecified; E87.6 Hypokalemia; F17.210 Nicotine dependence, cigarettes, uncomplicated
CPT/HCPCS: 80053; 81001; 83690; 83735; 85025; 87086; 87636; 96361; 96374; 96375; 99284; J0131; J0780; J1100; J1200; J1885; J7030